=== PATIENT | female | born 1970 | race Caucasian/White ===

== ENCOUNTER 2017-03-05 13:46 | Emergency (ER) | payer BC ==
[~2017-03-05] VITALS: Ht 157.5 cm; Wt 59.0 kg
[2017-03-05] MEDS ORDERED: IOHEXOL 300 MG/ML 75 ML VIAL. IV ONE (14:45)
[2017-03-05 14:51] LABS: BASO % 1 % (0-3); EOS % 0 % (0-3); HEMATOCRIT 38.3 % (36.0-47.0); HEMOGLOBIN 13.3 g/dL (12.0-15.5); LYMPH # 1.5 x10^3/uL (1.0-4.8); LYMPH % 38 % (24-48); MEAN CORPUSCULAR HEMOGLOBIN 38 pg (25-35); MEAN CORPUSCULAR HGB CONC 35 g/dL (31-37); MEAN CORPUSCULAR VOLUME 109 fL (79-100); MONO # 0.2 x10^3/uL (0.0-1.1); MONO % 6 % (0-9); NEUT # 2.2 x10^3uL (1.8-7.7); NEUT % 56 % (31-73); PLATELET COUNT 316 x10^3/uL (140-400); RED BLOOD COUNT 3.53 x10^6/uL (3.50-5.40); RED CELL DISTRIBUTION WIDTH 16.2 % (11.5-14.5); WHITE BLOOD COUNT 3.9 x10^3/uL (4.0-11.0)
[2017-03-05 15:02] LABS: ACETAMIN 17.1 mcg/mL (10-30); SALIC 1.9 mg/dL (2.8-20.0)
[2017-03-05 15:04] LABS: ETHANOL 430 mg/dL (0-10)
--- NOTE | 2017-03-05 15:21 | PHYS DOC ---
Past History Past Medical History: No Pertinent History Past Surgical History: Tonsillectomy Alcohol Use: None Additional Alcohol Information: used alcohol 14 yrs ago Drug Use: None Social History Narrative: used meth 14yrs ago Adult General Chief Complaint Chief Complaint: DIZZY/LIGHT HEADED HPI HPI 46-year-old female presenting to the emergency department today with intermittent slurred speech since Saturday. Today is Saturday. Her mother is here with her and is concerned that she may have taken methamphetamines. Her mother reports she is acting intermittently confused and inappropriate. The patient complains of a headache that is moderate nonradiating intermittent and not sudden in onset and without alleviating factors. She denies neck stiffness confusion unilateral leg swelling hemoptysis. She denies unilateral weakness or numbness or tingling. The patient denies vision changes. Review of systems is negative for chest pain shortness of breath abdominal pain vomiting fevers chills. All other review of systems is negative unless otherwise noted in history of present illness. ED course: 46-year-old female presenting to the emergency department with intermittent confusion and slurred speech since Saturday. Mother initially concern for possible ingestion. Patient denies any ingestions. On examination the patient has a normal temperature. Blood pressure normal. Heart rate mildly elevated. Saturating well on room air and breathing comfortably. On examination the patient is oriented to person place and time. (nursing note states confusion. This is inaccurate. Pt is oriented and not confused in the ED). Patient's last known normal established as Saturday. Patient is outside window for TPA and outside window for mechanical thrombectomy. NIH stroke scale calculated by nursing staff to be 1 for mental status. the pt is alert and keenly responsive. Neuro exam performed see below. I discussed the case with our neurologist [akbar]. Blood work obtained along with a head CT and angiography. Patient's alcohol level came back as very high. Otherwise head CT unremarkable. Patient was then admitted to [facility] for clinical observation and possible MRI with neurologic consultation. Review of Systems Review of Systems SEE ABOVE Current Medications Current Medications Current Medications Medications (Trade) Dose Ordered Sig/Jose Start Time Stop Time Status Last Admin Dose Admin Iohexol (Omnipaque 300 Mg/ml) 75 ml 1X ONCE 03/05/17 14:45 03/05/17 14:46 DC 03/05/17 14:58 75 ML Allergies Allergies Allergies Coded Allergies Type Severity Reaction Last Updated Verified amoxicillin Allergy Intermediate rash 03/05/17 Yes ampicillin Allergy Intermediate rash 03/05/17 Yes clavulanic acid Allergy Intermediate rash 03/05/17 Yes ciprofloxacin Allergy Unknown rash 03/05/17 Yes Physical Exam Physical Exam Constitutional: Well developed, well nourished, no acute distress, non-toxic appearance. [] HENT: Normocephalic, atraumatic, bilateral external ears normal, oropharynx moist, no oral exudates, nose normal. [] Eyes: PERRLA, EOMI, conjunctiva normal, no discharge. [] Neck: Normal range of motion, no tenderness, supple, no stridor. [] Cardiovascular:Heart rate regular rhythm, no murmur [] Lungs & Thorax: Bilateral breath sounds clear to auscultation [] Abdomen: Bowel sounds normal, soft, no tenderness, no masses, no pulsatile masses. [] Skin: Warm, dry, no erythema, no rash. [] Back: No tenderness, no CVA tenderness. [] Extremities: No tenderness, no cyanosis, no clubbing, ROM intact, no edema. [] Neurologic: Mental status: Awake oriented and alert x3 Cranial nerves: Extraocular movements intact, eyebrows michelle bilaterally smile symmetric, uvula elevation, shoulder shrug intact, tongue protrusion normal DTRs: 2+ Sensation: equal and normal in all extremities Strength: 5/5 in upper and lower extremities bilaterally Patient has mild ataxia on [id number] testing bilaterally and has difficulty performing rapid alternating movements. Psychologic: Affect normal, judgement normal, mood normal. [] Current Patient Data Vital Signs Vital Signs Date Time Temp Pulse Resp B/P (MAP) Pulse Ox O2 Delivery O2 Flow Rate FiO2 03/05/17 13:46 97.7 98 20 97 Lab Results Laboratory Tests Test 03/05/17 14:14 03/05/17 14:27 Glucose (Fingerstick) 102 mg/dL (70-99) H White Blood Count 3.9 x10^3/uL (4.0-11.0) L Red Blood Count 3.53 x10^6/uL (3.50-5.40) Hemoglobin 13.3 g/dL (12.0-15.5) Hematocrit 38.3 % (36.0-47.0) Mean Corpuscular Volume 109 fL (79-100) H Mean Corpuscular Hemoglobin 38 pg (25-35) H Mean Corpuscular Hemoglobin Concent 35 g/dL (31-37) Red Cell Distribution Width 16.2 % (11.5-14.5) H Platelet Count 316 x10^3/uL (140-400) Neutrophils (%) (Auto) 56 % (31-73) Lymphocytes (%) (Auto) 38 % (24-48) Monocytes (%) (Auto) 6 % (0-9) Eosinophils (%) (Auto) 0 % (0-3) Basophils (%) (Auto) 1 % (0-3) Neutrophils # (Auto) 2.2 x10^3uL (1.8-7.7) Lymphocytes # (Auto) 1.5 x10^3/uL (1.0-4.8) Monocytes # (Auto) 0.2 x10^3/uL (0.0-1.1) Eosinophils # (Auto) 0.0 x10^3/uL (0.0-0.7) Basophils # (Auto) 0.0 x10^3/uL (0.0-0.2) Troponin I Quantitative < 0.017 ng/mL (0-0.055) Salicylates Level 1.9 mg/dL (2.8-20.0) L Salicylate Last Dose Date Unknown Salicylate Last Dose Time Unknown Acetaminophen Level 17.1 mcg/mL (10-30) Acetaminophen Last Dose Date Unknown Acetaminophen Last Dose Time Unknown Ethyl Alcohol Level 430 mg/dL (0-10) *H EKG EKG [] Radiology/Procedures Radiology/Procedures [] Course & Med Decision Making Course & Med Decision Making Pertinent Labs and Imaging studies reviewed. (See chart for details) [] Dragon Disclaimer Dragon Disclaimer This chart was dictated in whole or in part using Voice Recognition software in a busy, high-work load, and often noisy Emergency Department environment. It may contain unintended and wholly unrecognized errors or omissions. Departure Departure: Impression: Primary Impression: Alcohol intoxication Disposition: 02 XFER SHT-TRM HOSP Condition: STABLE Referrals: PCP,NO (PCP) AB MONTOYA MD Mar 05, 2017 15:21
[2017-03-05] MEDS ORDERED: IV NORMAL SALINE 1,000ML 1,000 ML IV ONE (15:45)
[2017-03-05 15:52] LABS: AMPHETAMINE/METHAMPHETAMINE NEG (NEG); BARBITURATES NEG (NEG); BENZODIAZEPINES NEG (NEG); CANNABINOIDS NEG (NEG); COCAINE NEG (NEG); METHADONE NEG (NEG); OPIATES NEG (NEG); PHENCYCLIDINE NEG (NEG)
[2017-03-05 16:03] LABS: ALBUMIN 2.9 g/dL (3.4-5.0); CALCIUM 7.6 mg/dL (8.5-10.1); CREATININE 0.8 mg/dL (0.6-1.0); DIRECT BILIRUBIN 0.2 mg/dL (0.0-0.2); GFR 77.6; POTASSIUM 4.1 mmol/L (3.5-5.1); TOTAL BILIRUBIN 0.4 mg/dL (0.2-1.0); TOTAL PROTEIN 5.6 g/dL (6.4-8.2)
--- NOTE | 2017-03-05 16:03 | RAD ---
CT of the head without contrast, 03/05/2017: History: Altered mental status The ventricles are within normal limits in size. There is no shift of the midline structures. There is no evidence of acute intracranial hemorrhage or mass effect. IMPRESSION: No acute intracranial abnormality is detected. PQRS Compliance Statement: One or more of the following individualized dose reduction techniques were utilized for this examination: 1. Automated exposure control 2. Adjustment of the mA and/or kV according to patient size 3. Use of iterative reconstruction technique
--- NOTE | 2017-03-05 16:06 | RAD ---
CT head Indication: Intermittent confusion Technique: CT head without IV contrast Comparison: None Findings: Limited study as engineering lab technician bases are included on the scan. No pathologic extra-axial or intra-axial fluid collection. No midline shift. Ventricles and basal cisterns are within normal limits. No acute intracranial bleed. No loss of hawthorne-white differentiation. No calvarial lesions. Visualized mastoid cells are clear. Likely Arachnoid Granulation seen in the right transverse sinus. Impression: No acute intracranial process on this noncontrast study. CT angiogram of the head and neck Indication: As above Technique: CT angiogram of the head and neck with 75 mL of Omnipaque 300 with coronal and sagittal MIP reconstructions. Comparison: None Findings: No abnormally enhancing brain lesion. No pathologic extra-axial or intra-axial fluid collections. No mass occupying lesion. The ventricles and basal cisterns are within normal limits. ANI: Patent bilaterally without evidence of atherosclerotic disease, aneurysm or stenosis. MCA:Patent bilaterally without evidence of atherosclerotic disease, aneurysm or stenosis. LAMINATION MACHINE OPERATOR:Patent bilaterally without evidence of atherosclerotic disease, aneurysm or stenosis. Right posterior communicating artery is not visualized likely hypoplastic. Left posterior communicating artery is patent. Right superior cerebellar is not visualized. Left superior cerebral artery is patent. Diminutive right anterior inferior cerebellar artery noted. Left anterior inferior cerebellar artery not visualized likely hypoplastic. Bilateral posterior-inferior cerebellar arteries are visualized and are patent. Basilar artery is patent without evidence of atherosclerotic disease, stenosis or aneurysm. Bilateral cavernous carotid arteries are patent without evidence of aneurysm, atherosclerotic disease or stenosis. Bilateral vertebral arteries are patent without evidence of atherosclerotic disease, stenosis or aneurysm. Bilateral extracranial internal carotid arteries are patent without evidence of atherosclerotic disease, aneurysm, or stenosis. Bilateral external carotid arteries are patent. Carotid bulbs demonstrate no atherosclerotic disease or stenosis. Bilateral common carotid arteries are patent without evidence of atherosclerotic disease. Bilateral subclavian arteries are patent. Aortic arch is within normal limits. The dural venous sinuses are patent. Arachnoid granulation is seen within right transverse sinus. Jugular veins are patent bilaterally. No cervical adenopathy. The submandibular glands, parotid glands and thyroid are within normal limits. Orbits are within normal limits. The nasopharynx, oropharynx and hypopharynx within normal limits. Visualized lungs are clear. The paranasal sinuses and mastoid air cells are clear. No suspicious bony lesions. Impression: No evidence of atherosclerotic disease, stenosis or aneurysm of the extracranial or intracranial arteries. PQRS Compliance Statement: One or more of the following individualized dose reduction techniques were utilized for this examination: 1. Automated exposure control 2. Adjustment of the mA and/or kV according to patient size 3. Use of iterative reconstruction technique
[2017-03-05 16:27] LABS: BACTERIA,URINE 0 /HPF (0-FEW); BILIRUBIN,URINE NEG (NEG); CLARITY,URINE CLOUDY; COLOR,URINE YELLOW; GLUCOSE,URINE NEG (NEG); NITRITE,URINE NEG (NEG); RBC,URINE OCC /HPF (0-2); SQUAMOUS EPITHELIAL CELL,UR FEW /LPF; UROBILINOGEN,URINE 0.2 mg/dL (0.2 mg/dL)
[2017-03-05 16:31] LABS: PREG TEST PT QUAL NEGATIVE (NEG)
[2017-03-05 17:30] VITALS: BP 147/90
--- NOTE | 2017-03-05 19:01 | EKG ---
[address] [address] Test Date: 2017-03-05 Test Time: 14:04:21 Pat Name: VERNA CHILD Department: Room: Gender: F Weather Reporter: ALLA : 1970 Requested By: AB MONTOYA Order Number: [id number] Reading MD: Measurements Intervals [place] Rate: 93 P: 51 [place]: 130 QRS: 59 QRSD: 80 T: 62 QT: 364 QTc: 455 Interpretive Statements SINUS RHYTHM QRS(T) CONTOUR ABNORMALITY CONSIDER ANTEROSEPTAL MYOCARDIAL DAMAGE POSSIBLY ABNORMAL ECG RI6.01 No previous ECG available for comparison
== END 2017-03-05 18:40 | disposition short-term general hospital (02) ==
LOC: ER 13:46
DX: F10.129 Alcohol abuse with intoxication, unspecified (principal); Z88.1 Allergy status to other antibiotic agents
CPT/HCPCS: 36415; 51702; 70450; 70496; 70498; 80048; 80076; 80307; 81001; 82947; 83690; 83930; 84484; 84702; 84703; 85025; 93005; 96360; 96361; 99285; G0480; Q9967; G0479; J7030

== ENCOUNTER 2017-06-22 13:15 | Emergency (ER) | payer BC ==
[~2017-06-22] VITALS: Ht 157.5 cm; Wt 59.0 kg
[2017-06-22] MEDS ORDERED: MVI, ADULT NO.4 WITH VIT K 10 ML, FOLIC ACID SYRINGE for ER 1 MG, THIAMINE 100 MG in IV... IV SCH ×4 (14:00)
--- NOTE | 2017-06-22 14:05 | EKG ---
[address] [address] Test Date: 2017-06-22 Test Time: 13:51:07 Pat Name: VERNA CHILD Department: Room: Gender: F Hand Assembler: HARSH : 1970 Requested By: JR DE LA ROSA Order Number: [id number] Reading MD: Yeyo Greco MD Measurements Intervals [place] Rate: 86 P: 34 [place]: 122 QRS: -4 QRSD: 84 T: 22 QT: 366 QTc: 441 Interpretive Statements SINUS RHYTHM Electronically Signed On 06-30-2017 23:50:33 CHEMICAL DEPENDENCY NURSE by Yeyo Greco MD
[2017-06-22 14:44] LABS: BASO % 1 % (0-3); EOS % 0 % (0-3); HEMATOCRIT 38.3 % (36.0-47.0); HEMOGLOBIN 12.9 g/dL (12.0-15.5); LYMPH # 2.4 x10^3/uL (1.0-4.8); LYMPH % 46 % (24-48); MEAN CORPUSCULAR HEMOGLOBIN 32 pg (25-35); MEAN CORPUSCULAR HGB CONC 34 g/dL (31-37); MEAN CORPUSCULAR VOLUME 96 fL (79-100); MONO # 0.2 x10^3/uL (0.0-1.1); MONO % 3 % (0-9); NEUT # 2.6 x10^3uL (1.8-7.7); NEUT % 51 % (31-73); PLATELET COUNT 200 x10^3/uL (140-400); RED BLOOD COUNT 3.99 x10^6/uL (3.50-5.40); RED CELL DISTRIBUTION WIDTH 15.8 % (11.5-14.5); WHITE BLOOD COUNT 5.2 x10^3/uL (4.0-11.0)
[2017-06-22 14:55] LABS: ALBUMIN 3.2 g/dL (3.4-5.0); CALCIUM 8.1 mg/dL (8.5-10.1); CREATININE 0.7 mg/dL (0.6-1.0); DIRECT BILIRUBIN 0.1 mg/dL (0.0-0.2); GFR 90.5; MAGNESIUM 1.9 mg/dL (1.8-2.4); POTASSIUM 3.8 mmol/L (3.5-5.1); TOTAL BILIRUBIN 0.4 mg/dL (0.2-1.0); TOTAL PROTEIN 6.3 g/dL (6.4-8.2)
[2017-06-22 14:59] LABS: ACETAMIN < 2.0 mcg/mL (10-30); ETHANOL 297 mg/dL (0-10); SALIC 0.9 mg/dL (2.8-20.0)
[2017-06-22] MEDS ORDERED: IV NORMAL SALINE 1,000ML 1,000 ML IV SCH (15:34)
[2017-06-22 15:59] LABS: BACTERIA,URINE 0 /HPF (0-FEW); BILIRUBIN,URINE NEG (NEG); CLARITY,URINE CLEAR; COLOR,URINE YELLOW; GLUCOSE,URINE NEG (NEG); NITRITE,URINE NEG (NEG); SQUAMOUS EPITHELIAL CELL,UR FEW /LPF; UROBILINOGEN,URINE 0.2 mg/dL (0.2 mg/dL); WBC,URINE OCC /HPF (0-4)
[2017-06-22] MEDS ORDERED: LORazepam 2 MG/ML VIAL IV ONE ×2 (16:00→17:50)
[2017-06-22 16:12] LABS: BARBITURATES NEG (NEG); BENZODIAZEPINES NEG (NEG); CANNABINOIDS NEG (NEG); COCAINE NEG (NEG); METHADONE NEG (NEG); OPIATES NEG (NEG); PHENCYCLIDINE NEG (NEG)
[2017-06-22 16:13] LABS: AMPHETAMINE/METHAMPHETAMINE NEG (NEG)
[2017-06-22 17:30] VITALS: BP 128/75
[2017-06-22] MEDS ORDERED: LORA-434 PO (17:31)
--- NOTE | 2017-06-22 17:37 | PHYS DOC ---
General Chief Complaint: ALCOHOL INTOXICATION Stated Complaint: ETOH/ SUICIDAL IDEATION Time Seen by MD: 13:23 Problems: History of Present Illness Allergies: Coded Allergies: amoxicillin (Verified Allergy, Intermediate, rash, 03/05/17) ampicillin (Verified Allergy, Intermediate, rash, 03/05/17) clavulanic acid (Verified Allergy, Intermediate, rash, 03/05/17) ciprofloxacin (Verified Allergy, Unknown, rash, 03/05/17) Orders, Labs, Meds EKG: Normal sinus rhythm 86 bpm, leftward axis nonspecific T contour abnormality no ST segment elevation. Interpreted by me. 1737: Patient rechecked, she's had a banana bag, 1 mg of Ativan intravenously, and a 1 L normal saline IV bolus. At this point she is no longer slurring. She has a ride home, she hasn't assessment at the [facility] alcohol[facility] scheduled for Saturday. Her is on the way to pick her up and drive her home. She agrees not to drink alcohol and follow through with the [facility] alcohol cessation program. Departure Time of Disposition: 17:34 Disposition: 01 HOME, SELF-CARE Diagnosis: alcohol intoxication, alcoholism Condition: IMPROVED Patient Instructions: Alcohol Intoxication, [id number], Alcohol Withdrawal, [id number] Additional Instructions: Please review the patient education materials given by ED staff. Aggressive hydration to continue to replace fluid deficits. Abstain from alcohol in all forms. Prescription: Ativan 1 mg quantity 10 No driving or operating machinery while under the influence of alcohol or sedative medications. [facility]-up [facility] on Saturday as scheduled for alcoholism assessment and rehabilitation. Return to ED with new or changing symptoms. JR DE LA ROSA DO Jun 22, 2017 17:37
== END 2017-06-22 17:53 | disposition home or self-care (01) ==
LOC: ER 13:15
DX: F10.129 Alcohol abuse with intoxication, unspecified (principal); Z88.1 Allergy status to other antibiotic agents
CPT/HCPCS: 36415; 80048; 80076; 80307; 81001; 82550; 83690; 83735; 84484; 85025; 93005; 96365; 96375; 96376; 99285; G0480; J2060; G0479; J7030

== ENCOUNTER 2017-08-04 05:14 | Emergency (ER) | payer SELFPAY ==
[~2017-08-04] VITALS: Ht 157.5 cm; Wt 59.0 kg
[~2017-08-04 05:14] MED LIST: LORA-434 PO
--- NOTE | 2017-08-04 05:51 | PHYS DOC ---
Past History Past Medical History: Alcoholism Past Surgical History: Tonsillectomy Alcohol Use: Heavy Drug Use: None Adult General Chief Complaint Chief Complaint: altered mental status HPI HPI Patient is a 46 year old F who presents with altered mental status. Verna was brought to the emergency room by her family for progressively worsening abnormal behavior. They describe agitation and flailing for no known reason. She does have a history of alcohol abuse for which she is taking Antabuse currently. She has not used any other known recreational drugs. She states that the only medications she has used are Antabuse and Vistaril for anxiety. Her history is limited due to her current medical condition Review of Systems Review of Systems Unable to obtain due to current medical condition Family History Family History Unable to obtain due to current medical condition Current Medications Current Medications Unable to obtain due to current medical condition Allergies Allergies Allergies Coded Allergies Type Severity Reaction Last Updated Verified amoxicillin Allergy Intermediate rash 03/05/17 Yes ampicillin Allergy Intermediate rash 03/05/17 Yes clavulanic acid Allergy Intermediate rash 03/05/17 Yes ciprofloxacin Allergy Unknown rash 03/05/17 Yes Physical Exam Physical Exam Constitutional: Well developed, well nourished extremely agitated, flailing uncontrollably. HENT: Minimal dried blood in the mouth from apparent abrasion on the left upper lip, dry oral mucous membranes Eyes: EOMI, conjunctiva normal, no discharge. [] Neck: Normal range of motion limited evaluation Cardiovascular:Heart rate regular rhythm, Lungs & Thorax: Bilateral breath sounds clear to auscultation [] Abdomen: Bowel sounds normal, soft, no tenderness, no masses, no pulsatile masses. [] Skin: Warm, dry, no erythema, no rash. [] Multiple areas of ecchymosis on all extremities Back: Limited evaluation Extremities: no cyanosis, no clubbing, ROM intact, no edema. [] Limited evaluation Neurologic: Alert to person place and situation. Moves all extremities equally , limited evaluation Psychologic: Extremely agitated with flailing-like movements. EKG EKG EKG interpreted by me. EKG at 626 showed normal sinus rhythm at rate of 88, poor R-wave progress in anterolateral leads, no acute ST and T-wave elevation[] Radiology/Procedures Radiology/Procedures Critical care time 30 minutes Verna was flailing uncontrollably and at risk for injuring herself. She was given 2 mg of Ativan IM with minimal response. This was followed by 2 mg of Haldol IM also with minimal response initially. IV access was obtained, labs were drawn and she was given a second dose of Haldol 2 mg IV. She did improve thereafter but continued to be agitated with intermittent worsening intensity. She was started on IV fluids. [address] [address] IMAGING REPORT Signed PATIENT: VERNA CHILD ACCOUNT: [id number] : 1970 LOCATION: ER AGE: 46 SEX: F EXAM STATUS: REG ER ORD. PHYSICIAN: REY BEY MD REASON: Altered Mental status PROCEDURE: CT HEAD WO CONTRAST PQRS Compliance Statement: One or more of the following individualized dose reduction techniques were utilized for this examination: 1. Automated exposure control 2. Adjustment of the mA and/or kV according to patient size 3. Use of iterative reconstruction technique CT HEAD WITHOUT CONTRAST History: Altered mental status. Comparison: CT head without contrast 03/05/2017. Procedure: Axial images are obtained of the head from the skull base through the vertex without IV contrast. Findings: The ventricles and sulci are normal for the patient's age. No mass-effect, midline shift, hemorrhage, extra-axial fluid collection, or obvious acute infarction is identified. Basilar cisterns are patent. Bone windows demonstrate no acute calvarial abnormality. The visualized paranasal sinuses are clear. Mastoid air cells are well aerated. IMPRESSION: No acute intracranial abnormality. Electronically signed by: Tom Lozano MD (08/04/2017 6:42 AM) [facility] [place] DICTATED AND SIGNED BY: TOM LOZANO MD DATE: 08/04/17 0640 CC: KARON SALAS MD; PCP,NO; REY BEY MD ~ [address] [address] IMAGING REPORT Signed PATIENT: VERNA CHILD ACCOUNT: [id number] : 1970 LOCATION: ER AGE: 46 SEX: F EXAM STATUS: REG ER ORD. PHYSICIAN: KARON SALAS MD REASON: ALOC PROCEDURE: PORTABLE CHEST 1V Portable AP upright view CXR: Clinical indications: Altered level of consciousness. Comparison: None available. Findings: No acute lung infiltrate or pleural effusion or pulmonary edema or lung mass or pneumothorax is seen. The heart size, pulmonary vasculature, mediastinum and both lauren are unremarkable. Levoscoliosis is seen. Impression: No acute radiographic abnormality is seen. DICTATED AND SIGNED BY: HARISH NEVES MD DATE: 08/04/17 3286 CC: KARON SALAS MD; PCP,NO ~ Course & Med Decision Making Course & Med Decision Making Pertinent Labs and Imaging studies reviewed. (See chart for details) Care was transferred to Dr. Salas at 0600 Patient care transferred to [place] by senior safety management consultant physician at 6 AM. Patient brought in because of agitation and altered level of consciousness. According to family member patient was not acting like her usual for the last 1 week and gradually getting force and asked that she was more agitated and confused and refused to come to the hospital by EMS twice. Patient had stable vital signs and good gag reflex with mild agitation there has Haldol and Ativan IM and IV. Patient had IV line and labs was sent when I started her evaluation. Koduo-yh-tjka blood sugar was requested by me and showed blood sugar of 44 and 1 amp of D50 was given. Also I requested ABG, lactic acid, blood culture, cardiac enzymes, ammonia, chest x-ray, EKG, alcohol level, blood toxicology panel, urine test. Labs showed white count of 32,000 and blood sugar of 28. Repeat blood sugar after amp of D50 was 240 and 168. ABG showed pH of 7.18 with a bicarbonate of 6 and PCO2 of 121 at room air. Two amp of bicarbonate was ordered. Patient had 2 L of normal saline with Rocephin and vancomycin running. Tetanus shot was ordered patient mother states she had one less than [address] Dougherty was informed at 0711 who agreed with transferring the patient to higher level of care. Dr. Wilson on-call hospitalist at [facility] accepted transfer at 0 720. CPK final results is pending but lab staff reports it is very very elevated and needs dilution several times. Dragon Disclaimer Dragon Disclaimer This electronic medical record was generated, in whole or in part, using a voice recognition dictation system. Departure Departure: Impression: Primary Impression: Altered mental status, unspecified Additional Impressions: Sepsis Hypoglycemia Leukocytosis Metabolic acidosis Elevated troponin I level Elevated liver function tests Abnormal bruising Rhabdomyolysis Acute renal insufficiency Hematuria Disposition: XFER [facility] (At 0721) Referrals: PCP,NO (PCP) Critical Care Time Critical care time was [90] minutes exclusive of procedures. Problem Qualifiers REY BEY MD Aug 04, 2017 05:51 KARON SALAS MD Aug 04, 2017 06:15
[2017-08-04] MEDS ORDERED: LORazepam 2 MG/ML VIAL IM ONE (06:00)
[2017-08-04] MEDS ORDERED: HALOPERIDOL LACT 5 MG/ML VIAL. IM ONE (06:00)
[2017-08-04] MEDS ORDERED: HALOPERIDOL LACT 5 MG/ML VIAL. IVP ONE (06:00)
[2017-08-04] MEDS ORDERED: IV NORMAL SALINE 1,000ML 1,000 ML IV ONE ×2 (06:00→07:00)
[2017-08-04 06:07] LABS: BASO # 0.1 x10^3/uL (0.0-0.2); BASO % 0 % (0-3); EOS % 0 % (0-3); HEMATOCRIT 38.5 % (36.0-47.0); LYMPH # 0.9 x10^3/uL (1.0-4.8); LYMPH % 3 % (24-48); MEAN CORPUSCULAR HEMOGLOBIN 31 pg (25-35); MEAN CORPUSCULAR HGB CONC 34 g/dL (31-37); MEAN CORPUSCULAR VOLUME 92 fL (79-100); MONO # 1.6 x10^3/uL (0.0-1.1); MONO % 5 % (0-9); NEUT # 29.7 x10^3uL (1.8-7.7); NEUT % 92 % (31-73); PLATELET COUNT 420 x10^3/uL (140-400); RED BLOOD COUNT 4.18 x10^6/uL (3.50-5.40); RED CELL DISTRIBUTION WIDTH 15.4 % (11.5-14.5); WHITE BLOOD COUNT 32.3 x10^3/uL (4.0-11.0)
[2017-08-04 06:07] LABS: BARBITURATES NEG (NEG); BENZODIAZEPINES NEG (NEG); CANNABINOIDS NEG (NEG); COCAINE NEG (NEG); METHADONE NEG (NEG); OPIATES NEG (NEG); PHENCYCLIDINE NEG (NEG)
[2017-08-04] MEDS ORDERED: DEXTROSE 50% 25 GM / 50ML DISP.SYRIN. IV ONE ×2 (06:09→06:15)
[2017-08-04 06:12] LABS: AMPHETAMINE/METHAMPHETAMINE NEG (NEG)
[2017-08-04 06:22] LABS: ALBUMIN 3.6 g/dL (3.4-5.0); CALCIUM 8.7 mg/dL (8.5-10.1); CREATININE 1.6 mg/dL (0.6-1.0); GFR 34.9; MAGNESIUM 2.4 mg/dL (1.8-2.4); POTASSIUM 4.7 mmol/L (3.5-5.1); TOTAL BILIRUBIN 0.8 mg/dL (0.2-1.0); TOTAL PROTEIN 7.2 g/dL (6.4-8.2)
[2017-08-04 06:33] LABS: U PREG PATIENT NEGATIVE (NEG)
[2017-08-04 06:37] LABS: BACTERIA,URINE FEW /HPF (0-FEW); BILIRUBIN,URINE NEG (NEG); CLARITY,URINE HAZY; COLOR,URINE AMBER; GLUCOSE,URINE NEG (NEG); NITRITE,URINE NEG (NEG); RBC,URINE >40 /HPF (0-2); SQUAMOUS EPITHELIAL CELL,UR OCC /LPF; UROBILINOGEN,URINE 1 mg/dL (0.2 mg/dL); WBC,URINE RARE /HPF (0-4)
[2017-08-04 06:45] LABS: ACETAMIN < 2 mcg/mL (10-30); SALIC 7.1 mg/dL (2.8-20.0)
[2017-08-04] MEDS ORDERED: VANCOMYCIN 1 GM in IV NORMAL SALINE 250ML 250 ML IV ONE (06:45)
[2017-08-04] MEDS ORDERED: VANCOMYCIN PER PHARMACY MC PRN (06:45)
--- NOTE | 2017-08-04 06:45 | RAD ---
RS Compliance Statement: One or more of the following individualized dose reduction techniques were utilized for this examination: 1. Automated exposure control 2. Adjustment of the mA and/or kV according to patient size 3. Use of iterative reconstruction technique CT HEAD WITHOUT CONTRAST History: Altered mental status. Comparison: CT head without contrast 03/05/2017. Procedure: Axial images are obtained of the head from the skull base through the vertex without IV contrast. Findings: The ventricles and sulci are normal for the patient's age. No mass-effect, midline shift, hemorrhage, extra-axial fluid collection, or obvious acute infarction is identified. Basilar cisterns are patent. Bone windows demonstrate no acute calvarial abnormality. The visualized paranasal sinuses are clear. Mastoid air cells are well aerated. IMPRESSION: No acute intracranial abnormality. Electronically signed by: Tom Lozano MD (08/04/2017 6:42 AM) [facility]
[2017-08-04 06:56] LABS: BGAS PH 7.18 (7.35-7.45)
[2017-08-04] MEDS ORDERED: VANCOMYCIN 1.5 GM in IV NORMAL SALINE 500ML 500 ML IV ONE (07:00)
[2017-08-04] MEDS ORDERED: cefTRIAXone IV Push 1 GM VIAL. IVP ONE (07:00)
[2017-08-04] MEDS ORDERED: SODIUM BICARB ADULT 8.4% 50 MEQ/50 ML DISP.SYRIN. IV ONE (07:15)
[2017-08-04] MEDS ORDERED: TETANUS AND DIPHTHERIA TOX/PF 0.5 ML VIAL. VAX IM ONE (07:15)
[2017-08-04 07:21] LABS: % BANDS 5 % (0-9); % LYMPHS 2 % (24-48); % MONOS 7 % (0-10); % SEGS 86 % (35-66)
[2017-08-04 07:22] LABS: PLT ESTIMATE INCREASED (ADEQUATE)
[2017-08-04] MEDS ORDERED: VANCOMYCIN 1 GM VIAL. ONE (07:43)
[2017-08-04] MEDS ORDERED: IV NORMAL SALINE 500ML 500 ML ONE (07:43)
[2017-08-04] MEDS ORDERED: DIPHTH,PERTUSS(ACELL),TET TOX 0.5 ML DISP.SYRIN. VAX IM ONE (07:45)
--- NOTE | 2017-08-04 07:48 | RAD ---
Portable AP upright view CXR: Clinical indications: Altered level of consciousness. Comparison: None available. Findings: No acute lung infiltrate or pleural effusion or pulmonary edema or lung mass or pneumothorax is seen. The heart size, pulmonary vasculature, mediastinum and both lauren are unremarkable. Levoscoliosis is seen. Impression: No acute radiographic abnormality is seen.
[2017-08-04 08:30] VITALS: BP 108/74
[2017-08-04] MEDS ORDERED: LORazepam 2 MG/ML VIAL IV ONE (09:00)
--- NOTE | 2017-08-05 12:13 | EKG ---
[address] [address] Test Date: 2017-08-04 Test Time: 06:25:17 Pat Name: VERNA CHILD Department: Room: Gender: F Quality Systems Engineer: AYAH : 1970 Requested By: KARON SALAS Order Number: [id number] Reading MD: Measurements Intervals [place] Rate: 88 P: 64 RI: 136 QRS: 25 QRSD: 96 T: 55 QT: 374 QTc: 456 Interpretive Statements SINUS RHYTHM QRS(T) CONTOUR ABNORMALITY CONSIDER ANTEROSEPTAL MYOCARDIAL DAMAGE POSSIBLY ABNORMAL ECG RI6.01 Compared to ECG 06/22/2017 13:51:07 No significant changes
== END 2017-08-04 08:30 | disposition short-term general hospital (02) ==
LOC: ER 05:14
DX: A41.9 Sepsis, unspecified organism (principal); R41.82 Altered mental status, unspecified; E87.2 Acidosis; E16.2 Hypoglycemia, unspecified; D72.829 Elevated white blood cell count, unspecified; R79.89 Other specified abnormal findings of blood chemistry; R74.8 Abnormal levels of other serum enzymes; F10.20 Alcohol dependence, uncomplicated; M62.82 Rhabdomyolysis; N28.9 Disorder of kidney and ureter, unspecified; S60.222A Contusion of left hand, initial encounter; S60.221A Contusion of right hand, initial encounter; S80.12XA Contusion of left lower leg, initial encounter; S80.11XA Contusion of right lower leg, initial encounter; Z88.1 Allergy status to other antibiotic agents; X58.XXXA Exposure to other specified factors, initial encounter; Y99.8 Other external cause status; Y93.89 Activity, other specified; Y92.89 Other specified places as the place of occurrence of the external cause
CPT/HCPCS: 36415; 36600; 51702; 70450; 71045; 80053; 80307; 81001; 81025; 82140; 82550; 82553; 82803; 82947; 83605; 83690; 83735; 84484; 85007; 85025; 85610; 85730; 87040; 93005; 96361; 96365; 96372; 96375; 99291; 99292; G0480; J0696; J1630; J2060; J3370; J7040; G0479; J7030

== ENCOUNTER 2017-09-16 17:27 | Observation (INO) | payer OTHER ==
[~2017-09-16] VITALS: Ht 158.8 cm; Wt 61.9 kg
[2017-09-16] MEDS ORDERED: IV NORMAL SALINE 1,000ML 1,000 ML IV SCH ×2 (17:38→23:30)
[2017-09-16] MEDS ORDERED: ALPRAZolam 0.25 MG TABLET PO ONE (17:45)
--- NOTE | 2017-09-16 17:52 | EKG ---
[address] [address] Test Date: 2017-09-16 Test Time: 17:48:08 Pat Name: VERNA CHILD Department: Room: Gender: F Wet Mix Operator: : 1970 Requested By: MARVEL VELA Order Number: [id number] Reading MD: Yeyo Greco MD Measurements Intervals [place] Rate: 95 P: 31 MD: 128 QRS: 11 QRSD: 84 T: 64 QT: 338 QTc: 428 Interpretive Statements SINUS RHYTHM Electronically Signed On 09-23-2017 12:13:43 CDT by Yeyo Greco MD
[2017-09-16 18:05] LABS: BASO % 0 % (0-3); EOS # 0.1 x10^3/uL (0.0-0.7); EOS % 1 % (0-3); HEMATOCRIT 40.4 % (36.0-47.0); HEMOGLOBIN 13.7 g/dL (12.0-15.5); LYMPH % 31 % (24-48); MEAN CORPUSCULAR HEMOGLOBIN 30 pg (25-35); MEAN CORPUSCULAR HGB CONC 34 g/dL (31-37); MEAN CORPUSCULAR VOLUME 88 fL (79-100); MONO # 0.8 x10^3/uL (0.0-1.1); MONO % 9 % (0-9); NEUT # 5.6 x10^3uL (1.8-7.7); NEUT % 59 % (31-73); PLATELET COUNT 338 x10^3/uL (140-400); RED BLOOD COUNT 4.58 x10^6/uL (3.50-5.40); RED CELL DISTRIBUTION WIDTH 14.6 % (11.5-14.5); WHITE BLOOD COUNT 9.5 x10^3/uL (4.0-11.0)
[2017-09-16 18:15] LABS: CALCIUM 9.2 mg/dL (8.5-10.1); CREATININE 1.2 mg/dL (0.6-1.0); GFR 48.6; POTASSIUM 3.7 mmol/L (3.5-5.1)
[2017-09-16] MEDS ORDERED: THIAMINE 100 MG in IV NORMAL SALINE 50ML 50 ML IV STA (18:28)
[2017-09-16] MEDS ORDERED: IV NORMAL SALINE 1,000ML 1,000 ML IV ONE (18:30)
[2017-09-16] MEDS ORDERED: LORazepam 2 MG/ML VIAL IV ONE (18:45)
[2017-09-16] MEDS ORDERED: THIAMINE 200 MG/2 ML VIAL. IV ONE ×2 (18:47→23:12)
[2017-09-16] MEDS ORDERED: IV NORMAL SALINE 50ML 50 ML ONE ×2 (18:47→23:11)
[2017-09-16 19:34] LABS: BARBITURATES NEG (NEG); BENZODIAZEPINES NEG (NEG); CANNABINOIDS NEG (NEG); COCAINE NEG (NEG); METHADONE NEG (NEG); OPIATES NEG (NEG); PHENCYCLIDINE NEG (NEG)
[2017-09-16 19:35] LABS: AMPHETAMINE/METHAMPHETAMINE NEG (NEG)
[2017-09-16 19:51] LABS: ACETAMIN 6.3 mcg/mL (10-30); SALIC 1.6 mg/dL (2.8-20.0)
--- NOTE | 2017-09-16 20:29 | RAD ---
Exam performed: CT scan of the head without contrast. Date of Service: 06/18/13. Comparison: CT head without contrast from 08/04/2017. Clinical History: Altered mental status, difficulty holding still, patient is uncooperative. Technique: Helical acquisitions are obtained from the foramen magnum to the vertex without intravenous administration of contrast. Findings: The ventricles are midline without evidence of dilatation. Normal hawthorne-white differentiation is maintained. There is no extra axial fluid collection, intraparenchymal hemorrhage or mass lesion. The visualized portions of the orbits, paranasal sinuses and the mastoid air cells appear clear. The calvarium is intact. Impression: 1. No acute intracranial process detected. PQRS Compliance Statement: One or more of the following individualized dose reduction techniques were utilized for this examination: 1. Automated exposure control 2. Adjustment of the mA and/or kV according to patient size 3. Use of iterative reconstruction technique Electronically signed by: Nieves Palumbo MD (09/16/2017 8:26 PM) [facility]
[2017-09-16] MEDS ORDERED: diphenhydrAMINE 50 MG/ML VIAL IVP ONE (21:45)
[2017-09-16] MEDS ORDERED: NORMAL SALINE IV ONE (23:00)
[2017-09-16] MEDS ORDERED: THIAMINE IV ONE (23:00)
--- NOTE | 2017-09-16 23:14 | PHYS DOC ---
Past History Past Medical History: Alcoholism Past Surgical History: Tonsillectomy, Other Alcohol Use: Heavy Drug Use: None Adult General Chief Complaint Chief Complaint: ALLERGIC REACTION HPI HPI 46-year-old female with a history of alcoholism on Antabuse for months now brought in by family for evaluation of ataxia. Patient family reports that within the last several months patient was admitted for similar symptoms. She was found to have rhabdomyolysis with a CK around 80,000. Patient was admitted and treated. They're concerned that she may have rhabdomyolysis again. She has no shaking at rest but family and patient described that she is a little bit shaky when she moves and does things and when she walks. Patient denies any drug abuse. No seizure activity no recent alcohol or drugs Review of Systems Review of Systems Constitutional: Denies fever or chills [] Eyes: Denies change in visual acuity, redness, or eye pain [] HENT: Denies nasal congestion or sore throat [] Respiratory: Denies cough or shortness of breath [] Cardiovascular: No additional information not addressed in HPI [] GI: Denies abdominal pain, nausea, vomiting, bloody stools or diarrhea [] : Denies dysuria or hematuria [] Musculoskeletal: Denies back pain or joint pain [] Integument: Denies rash or skin lesions [] Neurologic: Denies headache, focal weakness or sensory changes [] Endocrine: Denies polyuria or polydipsia [] All other systems were reviewed and found to be within normal limits, except as documented in this note. Current Medications Current Medications Current Medications Medications (Trade) Dose Ordered Sig/Jose Start Time Stop Time Status Last Admin Dose Admin Alprazolam (Xanax) 1 mg 1X ONCE 09/16/17 17:45 09/16/17 17:46 DC 09/16/17 17:51 1 MG Diphenhydramine HCl (Benadryl) 25 mg 1X ONCE 09/16/17 21:45 09/16/17 21:46 DC 09/16/17 21:40 25 MG Lorazepam (Ativan) 1 mg 1X ONCE 09/16/17 18:45 09/16/17 18:46 DC 09/16/17 18:35 1 MG Sodium Chloride 50 ml @ As Directed STK-MED ONCE 09/16/17 18:47 09/16/17 18:48 DC Thiamine HCl 200 mg STK-MED ONCE 09/16/17 18:47 09/16/17 18:48 DC Thiamine HCl 100 mg/Sodium Chloride 51 ml @ 999 mls/hr 1X STAT 09/16/17 18:28 09/16/17 18:33 DC 09/16/17 17:50 999 MLS/HR Thiamine HCl 400 mg/Sodium Chloride 54 ml @ 200 mls/hr 1X ONCE 09/16/17 23:00 09/16/17 23:16 Allergies Allergies Allergies Coded Allergies Type Severity Reaction Last Updated Verified amoxicillin Allergy Intermediate rash 08/04/17 Yes ampicillin Allergy Intermediate rash 08/04/17 Yes ciprofloxacin Allergy Intermediate rash 08/04/17 Yes clavulanic acid Allergy Intermediate rash 08/04/17 Yes Physical Exam Physical Exam Constitutional: Patient very restless appearing. She will intermittent leg rest quietly and then be writhing and then resting quietly again. Patient does have some ataxia with finger to nose and with her gait. No acute distress, non-toxic appearance. [] HENT: Normocephalic, atraumatic, bilateral external ears normal, oropharynx moist, no oral exudates, nose normal. [] Eyes: PERRLA, EOMI, conjunctiva normal, no discharge. [] Neck: Normal range of motion, no tenderness, supple, no stridor. [] Cardiovascular:Heart rate regular rhythm, no murmur [] Lungs & Thorax: Bilateral breath sounds clear to auscultation [] Abdomen: Bowel sounds normal, soft, no tenderness, no masses, no pulsatile masses. [] Skin: Warm, dry, no erythema, no rash. [] Back: No tenderness, no CVA tenderness. [] Extremities: No tenderness, no cyanosis, no clubbing, ROM intact, no edema. [] Neurologic: Alert and oriented X 3, ataxia as above, normal sensory function, no focal deficits noted. [] Psychologic: Flat affect, judgement normal Current Patient Data Vital Signs Vital Signs Date Time Temp Pulse Resp B/P (MAP) Pulse Ox O2 Delivery O2 Flow Rate FiO2 09/16/17 19:27 78 14 120/76 (91) 95 Room Air 09/16/17 18:07 97.0 Lab Results Laboratory Tests Test 09/16/17 17:45 09/16/17 18:56 White Blood Count 9.5 x10^3/uL (4.0-11.0) Red Blood Count 4.58 x10^6/uL (3.50-5.40) Hemoglobin 13.7 g/dL (12.0-15.5) Hematocrit 40.4 % (36.0-47.0) Mean Corpuscular Volume 88 fL (79-100) Mean Corpuscular Hemoglobin 30 pg (25-35) Mean Corpuscular Hemoglobin Concent 34 g/dL (31-37) Red Cell Distribution Width 14.6 % (11.5-14.5) H Platelet Count 338 x10^3/uL (140-400) Neutrophils (%) (Auto) 59 % (31-73) Lymphocytes (%) (Auto) 31 % (24-48) Monocytes (%) (Auto) 9 % (0-9) Eosinophils (%) (Auto) 1 % (0-3) Basophils (%) (Auto) 0 % (0-3) Neutrophils # (Auto) 5.6 x10^3uL (1.8-7.7) Lymphocytes # (Auto) 3.0 x10^3/uL (1.0-4.8) Monocytes # (Auto) 0.8 x10^3/uL (0.0-1.1) Eosinophils # (Auto) 0.1 x10^3/uL (0.0-0.7) Basophils # (Auto) 0.0 x10^3/uL (0.0-0.2) Sodium Level 137 mmol/L (136-145) Potassium Level 3.7 mmol/L (3.5-5.1) Chloride Level 100 mmol/L (98-107) Carbon Dioxide Level 27 mmol/L (21-32) Anion Gap 10 (6-14) Blood Urea Nitrogen 17 mg/dL (7-20) Creatinine 1.2 mg/dL (0.6-1.0) H Estimated GFR (Cockcroft-Gault) 48.6 Glucose Level 97 mg/dL (70-99) Calcium Level 9.2 mg/dL (8.5-10.1) Creatine Kinase 386 U/L (26-192) H Troponin I Quantitative < 0.017 ng/mL (0-0.055) Salicylates Level 1.6 mg/dL (2.8-20.0) L Salicylate Last Dose Date 09/15/17 Salicylate Last Dose Time Unknown Acetaminophen Level 6.3 mcg/mL (10-30) L Acetaminophen Last Dose Date 09/15/17 Acetaminophen Last Dose Time Unknown Urine Opiates Screen Neg (NEG) Urine Methadone Screen Neg (NEG) Urine Barbiturates Neg (NEG) Urine Phencyclidine Screen Neg (NEG) Urine Amphetamine/Methamphetamine Neg (NEG) Urine Benzodiazepines Screen Neg (NEG) Urine Cocaine Screen Neg (NEG) Urine Cannabinoids Screen Neg (NEG) Urine Ethyl Alcohol Neg (NEG) EKG EKG [] Radiology/Procedures Radiology/Procedures [] Course & Med Decision Making Course & Med Decision Making Pertinent Labs and Imaging studies reviewed. (See chart for details) Patient with history of alcoholism. While she is alert and communicative she does have ataxia with upper limb movements as well as with her gait. Workup unremarkable the patient persists with these symptoms. She is on Zoloft and dystonic reaction was considered however patient did not have significant improvement with Benadryl administration. Because of the inability to definitively rule out an atypical presentation for Wernick his encephalopathy, appropriate dose of thiamine was administered and case discussed with the hospitalist regarding admission. Hospitalist accepted the patient for inpatient admission for full workup. Patient's ataxia. Improved after administration of thiamine but it is not entirely clear whether this represented actual symptomatic resolution versus subjective/variable presentation of her intermittent symptoms. Patient stable for admission [] Dragon Disclaimer Dragon Disclaimer This electronic medical record was generated, in whole or in part, using a voice recognition dictation system. Departure Departure: Impression: Primary Impression: Ataxia Additional Impression: Gait abnormality Disposition: ADMITTED INPATIENT Admitting Physician: Terese Baer Condition: STABLE Referrals: PCP,NO (PCP) Scripts Hydrocodone Bit/Acetaminophen (HYDROCODONE-APAP 5-325 ) 1 Each Tablet 1 TAB PO PRN Q6HRS Y for PAIN for 7 Days, #28 TAB 0 Refills Prov: TERESE BAER MD 09/19/17 Clonazepam (CLONAZEPAM) 0.5 Mg Tablet 1 TAB PO BID for 7 Days, #14 TAB Prov: TERESE BAER MD 09/19/17 Problem Qualifiers MARVEL VELA MD Sep 16, 2017 23:14
[2017-09-16] MEDS ORDERED: ONDANSETRON PF 4 MG/2 ML VIAL. IV PRN (23:15)
[2017-09-17 00:20] VITALS: BP 131/94
[2017-09-17] MEDS: IV NORMAL SALINE 1,000ML 1,000 ML IV SCH ×3 (00:20→16:20)
[2017-09-17] MEDS ORDERED: ONDANSETRON ODT 4 MG TAB.RAPDIS PO PRN (01:30)
[2017-09-17] MEDS ORDERED: IV NORMAL SALINE 1,000ML 1,000 ML IV SCH (01:30)
[2017-09-17] MEDS ORDERED: DISU250T PO (02:50)
[2017-09-17] MEDS ORDERED: NYST1000 PO (02:50)
[2017-09-17] MEDS ORDERED: TRAZ-90 PO (02:50)
[2017-09-17] MEDS ORDERED: ALPR0.254 PO (02:50)
[2017-09-17] MEDS ORDERED: SERT50TA8 PO (02:50)
[2017-09-17] MEDS ORDERED: LORazepam 2 MG/ML VIAL IV ONE (03:00)
[2017-09-17 06:10] LABS: HEMATOCRIT 37.4 % (36.0-47.0); HEMOGLOBIN 12.5 g/dL (12.0-15.5); RED BLOOD COUNT 4.21 x10^6/uL (3.50-5.40); RED CELL DISTRIBUTION WIDTH 14.9 % (11.5-14.5); WHITE BLOOD COUNT 8.4 x10^3/uL (4.0-11.0)
[2017-09-17 06:27] LABS: ALBUMIN 3.1 g/dL (3.4-5.0); ALBUMIN/GLOBULIN RATIO 1.1 (1.0-1.7); CALCIUM 8.6 mg/dL (8.5-10.1); CREATININE 0.9 mg/dL (0.6-1.0); GFR 67.7; POTASSIUM 3.8 mmol/L (3.5-5.1); TOTAL BILIRUBIN 0.3 mg/dL (0.2-1.0); TOTAL PROTEIN 5.8 g/dL (6.4-8.2)
[2017-09-17 06:35] VITALS: BP 144/94
[2017-09-17] MEDS ORDERED: SERTRALINE 50 MG TABLET. PO SCH (09:00)
[2017-09-17] MEDS: ALPRAZolam 0.25 MG TABLET PO PRN ×2 (09:10→17:42)
[2017-09-17 11:13] VITALS: BP 119/78
[2017-09-17] MEDS ORDERED: ACETAMINOPHEN 650 MG/20.3 ML SOLUTION. PO PRN (15:30)
[2017-09-17 15:58] VITALS: BP 119/59
--- NOTE | 2017-09-17 17:44 | HP ---
ADMIT DATE: 09/16/2017 HISTORY OF PRESENT ILLNESS: The patient is a 46-year-old female patient who came to the Emergency Room yesterday with a complaint of ataxia and flailing movement, and was evaluated in the Emergency Room according to the patient and her mother. This is how the way she presented on 08/04/2017 last time and at that time, she was found to have rhabdomyolysis. Her CK at that time was almost 85,000 and she was taken to the ICU of [facility] where she was treated with IV fluid and urine alkalinization to advance the acute renal failure. PAST MEDICAL HISTORY: Significant for depression and anxiety. She has a history of alcoholism for which she was admitted to [facility] in [place] and at that time, she was started on Antabuse medication and since then, she has not. Her last drink was on 06/24/2017 according to her. She has no other medical problem except an episode of rhabdomyolysis, the beginning of this month. PAST SURGICAL HISTORY: Significant for tonsillectomy, skin cancer resection from her right forehead and at the time, she went into septic shock. She has also . ALLERGIES: She is allergic to ampicillin. MEDICATIONS: She is currently on Zoloft, trazodone, Antabuse in the form of disulfiram and Claritin-D. FAMILY HISTORY: She has 1 older sister that is healthy. Her father at age 66 because of esophageal cancer and has heart disease. Mother is alive and has ulcerative colitis. SOCIAL HISTORY: She is single. She has 14 years old son. She does not smoke. She stopped drinking on 06/25/2017. She used to drink vodka. REVIEW OF SYSTEMS: The patient denied any blurring of vision, cataract, glaucoma or macular degeneration. Denied any earache, tinnitus or sensorineural deafness. Denied any nosebleeds, stuffy nose or postnasal drip. Denied any sore throat, sore tongue, toothache, hoarseness of voice or difficulty swallowing. Denied any nausea, vomiting, diarrhea or constipation. Denied any hematemesis, melena or hematochezia. Denied any dysuria, frequency or hematuria. Denied any chest pain, shortness of breath, orthopnea, or paroxysmal nocturnal dyspnea. Denied any cough, phlegm or hemoptysis. PHYSICAL EXAMINATION: GENERAL: On arrival to the Emergency Room, she looked pale, but no jaundice, cyanosis or thyromegaly. No jugular venous distension. No lower limb edema. VITAL SIGNS: Her heart rate was 98, blood pressure was 138/80, temperature was 98.4, respiratory rate was 20, and oxygen saturation was 95%. HEART: Showed normal first and second heart sounds with no gallop, rub or murmur. CHEST: Clear to auscultation. No crepitation or rhonchi. ABDOMEN: Distended, soft, nontender. No guarding or rigidity. No organomegaly. Hernial orifice intact. Bowel sounds normal. NEUROLOGIC: She was awake, alert, oriented x 3. She has some abnormal flailing movement. LABORATORY AND DIAGNOSTIC DATA: While in the Emergency Room, she has had lab work done, which showed that her white cell count was 9500, hemoglobin was 14, hematocrit 40, MCV 88 and platelet count of 338,000. Her chemistry showed a serum sodium of 137, potassium 3.7, chloride 100, bicarbonate 27, anion gap of 10, BUN 17, creatinine 1.2, estimated GFR was 48 mL per minute, glucose 97, calcium was 9.2. Her CK was 386,000. Her total protein was 5.8, albumin 3.1. Her urinalysis was unremarkable. Her toxic screen showed that the urine was negative for opiates, methadone, barbiturates, phencyclidine, amphetamine, methamphetamine, benzodiazepine, cocaine, cannabinoids and alcohol. ASSESSMENT: She was admitted and started on IV fluid. We will monitor her lab work, as she presented this way last time when she has severe rhabdomyolysis and given her abnormal movement, we will consult Dr. Coles to assist with the management. MUNA BAER MD DR: DOREEN/maryellen JOB#: [id number] / [id number]
[2017-09-17 19:25] VITALS: BP 120/78
[2017-09-17] MEDS: MELATONIN 3 MG TABLET PO PRN ×2 (20:51→21:32)
[2017-09-17] MEDS ORDERED: traZODone 100 MG TABLET. PO SCH (21:00)
[2017-09-17] MEDS: DISULFIRAM 250 MG PO SCH (21:00)
[2017-09-17] MEDS: traMADol 50 MG TABLET PO PRN (21:32)
--- NOTE | 2017-09-18 00:08 | PN ---
DATE: 09/17/2017 SUBJECTIVE: The patient was admitted yesterday with abnormal movement and ataxia. She complained of aches and pains also. She continued to have this abnormal movement in her arms, legs, and also her torso, and also her face and the only explanation that I could come up with that she has some form of serotonin syndrome. PHYSICAL EXAMINATION: GENERAL: When I examined her this afternoon, she was pale, no jaundice, cyanosis, or thyromegaly. No jugular venous distension. No limb edema. VITAL SIGNS: Her heart rate was 97, blood pressure was 119/78, temperature was 98.6, respiratory rate 22, and oxygen saturation was 97%. HEAD, EYES, EARS, NOSE AND THROAT: Normocephalic, atraumatic. NECK: Supple. HEART: Showed normal first and second heart sounds with no gallop, rub or murmur. CHEST: Clear to auscultation. No crepitation or rhonchi. ABDOMEN: Distended, soft, and nontender. No guarding or rigidity. No organomegaly. Hernial orifices intact. Bowel sounds normal. NEUROLOGIC: She is awake, alert. She is restless and fidgety, has abnormal movement on her face, upper limbs and torso. This is some kind of myoclonic jerk or chorea. Her intake over the last 24 hours was almost 2200, no output was recorded. LABORATORY DATA: Her lab work this morning showed a white cell count of 8400, hemoglobin 12.5, hematocrit of 37.4, MCV 89, and platelet count of 236,000. Her chemistry showed a serum sodium 139, potassium 3.8, chloride 108, and bicarbonate 23. Her anion gap of 8, BUN 14, creatinine 0.9, estimated GFR was 68 mL per minute. His glucose was 82, calcium was 8.6. Total bilirubin, AST, ALT, alkaline phosphatase were normal. Her CK was at 350. Total protein was 5.8, albumin 3.1. ASSESSMENT: In summary, this is a 46-year-old female patient, who came with an abnormal involuntary movement consistent with some form of chorea or myoclonic jerks. The nearest description that I come up with there is probably some form of serotonin syndrome as she is already on trazodone and Zoloft. PLAN: My plan is to consult Dr. Coles to see her and also hold her trazodone and Zoloft. I will continue with the Xanax and Tylenol for pain. Repeat her lab work tomorrow and if the CK remains normal, she can be discharged home. MUNA BAER MD DR: DOREEN/maryellen JOB#: [id number] / [id number]
[2017-09-18 00:10] VITALS: BP 130/80
[2017-09-18] MEDS: ALPRAZolam 0.25 MG TABLET PO PRN ×2 (00:34→08:08)
[2017-09-18] MEDS: IV NORMAL SALINE 1,000ML 1,000 ML IV SCH ×3 (00:35→17:10)
[2017-09-18] MEDS: traMADol 50 MG TABLET PO PRN (05:02)
[2017-09-18 05:07] VITALS: BP 123/76
[2017-09-18 06:44] LABS: HEMATOCRIT 36.5 % (36.0-47.0); HEMOGLOBIN 12.2 g/dL (12.0-15.5); RED BLOOD COUNT 4.15 x10^6/uL (3.50-5.40); RED CELL DISTRIBUTION WIDTH 14.6 % (11.5-14.5); WHITE BLOOD COUNT 8.7 x10^3/uL (4.0-11.0)
[2017-09-18 06:55] LABS: ALBUMIN 3.5 g/dL (3.4-5.0); ALBUMIN/GLOBULIN RATIO 1.2 (1.0-1.7); CALCIUM 8.9 mg/dL (8.5-10.1); CREATININE 0.9 mg/dL (0.6-1.0); GFR 67.7; POTASSIUM 3.7 mmol/L (3.5-5.1); TOTAL BILIRUBIN 0.3 mg/dL (0.2-1.0); TOTAL PROTEIN 6.5 g/dL (6.4-8.2)
[2017-09-18 10:50] VITALS: BP 127/70
[2017-09-18 14:44] VITALS: BP 134/76
[2017-09-18] MEDS ORDERED: ALPRAZolam 0.25 MG TABLET PO PRN ×2 (17:00→17:15)
[2017-09-18] MEDS: HYDROcodone/APAP 5/325MG 1 TAB TABLET PO PRN ×2 (17:07→23:50)
--- NOTE | 2017-09-18 18:22 | PDOC ---
Exam Note: Siva Note: Please also refer to the separate dictated note~for this date of service dictated separately.~Patient seen individually. Discussed the patient with Nursing staff reviewed the chart.~Reviewed interim history and current functioning. Reviewed vital signs,~Labs/ Radiology~and current medications noted below. Continue current treatment with the changes noted in the dictated addendum note Late entry for September Assessment: Vital Signs: VS - Last 72 Hours, by Label Date Time Temp Pulse Resp B/P (MAP) Pulse Ox O2 Delivery O2 Flow Rate FiO2 09/18/17 17:07 98 Room Air 09/18/17 14:44 98.3 93 18 134/76 (95) 98 Room Air 09/18/17 10:50 98.1 90 20 127/70 (89) 98 Room Air 09/18/17 08:15 Room Air 09/18/17 06:06 18 97 Room Air 09/18/17 05:07 98.4 89 20 123/76 (92) 97 Room Air 09/18/17 05:02 18 95 Room Air 09/18/17 00:10 98.6 100 18 130/80 (97) 95 Room Air 09/17/17 21:32 18 98 Room Air 09/17/17 20:00 Room Air 09/17/17 19:25 98.1 101 18 120/78 (92) 98 Room Air 09/17/17 15:58 98.5 95 20 119/59 (79) 99 Room Air 09/17/17 11:13 98.6 97 22 119/78 (92) 97 Room Air 09/17/17 08:00 Room Air 09/17/17 06:35 98.5 83 20 144/94 (111) 99 Room Air 09/17/17 00:20 97.6 107 16 131/94 (106) 100 Room Air 09/17/17 00:20 Room Air 09/16/17 19:27 78 14 120/76 (91) 95 Room Air 09/16/17 19:10 85 22 108/71 (83) 95 Room Air 09/16/17 18:07 97.0 110 26 97 Room Air Vital Signs Date Time Temp Pulse Resp B/P (MAP) Pulse Ox O2 Delivery O2 Flow Rate FiO2 09/18/17 17:07 98 Room Air 09/18/17 14:44 98.3 93 18 134/76 (95) I&O Intake and Output 09/18/17 07:00 Intake Total 4086 ml Balance 4086 ml Intake Oral 1120 ml IV Total 2966 ml # Voids 7 Labs: Laboratory Tests Test 09/18/17 06:06 White Blood Count 8.7 x10^3/uL (4.0-11.0) Red Blood Count 4.15 x10^6/uL (3.50-5.40) Hemoglobin 12.2 g/dL (12.0-15.5) Hematocrit 36.5 % (36.0-47.0) Mean Corpuscular Volume 88 fL (79-100) Mean Corpuscular Hemoglobin 30 pg (25-35) Mean Corpuscular Hemoglobin Concent 34 g/dL (31-37) Red Cell Distribution Width 14.6 % (11.5-14.5) H Platelet Count 293 x10^3/uL (140-400) Sodium Level 139 mmol/L (136-145) Potassium Level 3.7 mmol/L (3.5-5.1) Chloride Level 106 mmol/L (98-107) Carbon Dioxide Level 22 mmol/L (21-32) Anion Gap 11 (6-14) Blood Urea Nitrogen 10 mg/dL (7-20) Creatinine 0.9 mg/dL (0.6-1.0) Estimated GFR (Cockcroft-Gault) 67.7 BUN/Creatinine Ratio 11 (6-20) Glucose Level 78 mg/dL (70-99) Calcium Level 8.9 mg/dL (8.5-10.1) Total Bilirubin 0.3 mg/dL (0.2-1.0) Aspartate Amino Transferase (AST) 29 U/L (15-37) Alanine Aminotransferase (ALT) 25 U/L (14-59) Alkaline Phosphatase 69 U/L (46-116) Creatine Kinase 593 U/L (26-192) H Total Protein 6.5 g/dL (6.4-8.2) Albumin 3.5 g/dL (3.4-5.0) Albumin/Globulin Ratio 1.2 (1.0-1.7) Thyroid Stimulating Hormone (TSH) 1.628 uIU/mL (0.358-3.740) Current Medications: Meds: Current Medications Alprazolam (Xanax) 1 mg 1X ONCE PO Last administered on 09/16/17at 17:51; Start 09/16/17 at 17:45; Stop 09/16/17 at 17:46; Status DC Sodium Chloride 1,000 ml @ 1,000 mls/hr Q1H IV Last administered on 09/16/17at 17:51; Start 09/16/17 at 17:38; Stop 09/16/17 at 18:37; Status DC Lorazepam (Ativan) 1 mg 1X ONCE IV Last administered on 09/16/17at 18:35; Start 09/16/17 at 18:45; Stop 09/16/17 at 18:46; Status DC Sodium Chloride 1,000 ml @ 1,000 mls/hr 1X ONCE IV Last administered on at 20:24; Start 09/16/17 at 18:30; Stop 09/16/17 at 19:29; Status DC Thiamine HCl 100 mg/Sodium Chloride 51 ml @ 999 mls/hr 1X STAT IV Last administered on 09/16/17at 17:50; Start 09/16/17 at 18:28; Stop 09/16/17 at 18:33 ; Status DC Sodium Chloride 50 ml @ As Directed STK-MED ONCE .ROUTE ; Start 09/16/17 at 18: 47; Stop 09/16/17 at 18:48; Status DC Thiamine HCl 200 mg STK-MED ONCE IV ; Start 09/16/17 at 18:47; Stop 09/16/17 at 18:48; Status DC Diphenhydramine HCl (Benadryl) 25 mg 1X ONCE IVP Last administered on at 21:40; Start 09/16/17 at 21:45; Stop 09/16/17 at 21:46; Status DC Thiamine HCl 400 mg/Sodium Chloride 54 ml @ 200 mls/hr 1X ONCE IV Last administered on 09/16/17at 23:18; Start 09/16/17 at 23:00; Stop 09/16/17 at 23:16 ; Status DC Ondansetron HCl (Zofran) 4 mg PRN Q4HRS PRN IV NAUSEA/VOMITING 1ST CHOICE; Start 09/16/17 at 23:15; Stop 09/17/17 at 23:14; Status DC Sodium Chloride 1,000 ml @ 125 mls/hr Q8H IV Last administered on 09/16/17at 23 :36; Start 09/16/17 at 23:30; Stop 09/17/17 at 03:17; Status DC Sodium Chloride 50 ml @ As Directed STK-MED ONCE .ROUTE ; Start 09/16/17 at 23: 11; Stop 09/16/17 at 23:12; Status DC Thiamine HCl 200 mg STK-MED ONCE IV ; Start 09/16/17 at 23:12; Stop 09/16/17 at 23:13; Status DC Sodium Chloride 1,000 ml @ 125 mls/hr Q8H IV ; Start 09/17/17 at 01:30; Stop at 03:17; Status DC Ondansetron HCl (Zofran Odt) 4 mg PRN Q8HRS PRN PO NAUSEA/VOMITING 1ST CHOICE; Start 09/17/17 at 01:30 Lorazepam (Ativan) 1 mg 1X ONCE IV Last administered on 09/17/17at 02:58; Start 09/17/17 at 03:00; Stop 09/17/17 at 03:01; Status DC Alprazolam (Xanax) 0.25 mg PRN TID PRN PO ANXIETY / AGITATION Last administered on 09/18/17at 08:08; Start 09/17/17 at 02:45; Stop 09/18/17 at 16:57 ; Status DC Sertraline HCl (Zoloft) 50 mg DAILY PO Last administered on 09/17/17at 09:00; Start 09/17/17 at 09:00; Stop 09/17/17 at 15:27; Status DC Trazodone HCl (Desyrel) 100 mg QHS PO ; Start 09/17/17 at 21:00; Stop 09/17/17 at 21:00; Status DC Non-Formulary Medication (Disulfiram ) 250 mg QHS PO ; Start 09/17/17 at 21:00; Status UNV Sodium Chloride 1,000 ml @ 125 mls/hr Q8H IV Last administered on 09/18/17at 17 :10; Start 09/17/17 at 00:20 Acetaminophen (Tylenol) 650 mg PRN Q4HRS PRN PO PAIN / TEMP Last administered on 09/17/17at 17:42; Start 09/17/17 at 15:30 Melatonin 6 mg PRN QHS PRN PO INSOMNIA, MAY REPEAT X1 Last administered on 09/17at 21:32; Start 09/17/17 at 18:45 Tramadol HCl (Ultram) 50 mg PRN Q4HRS PRN PO PAIN Last administered on at 05:02; Start 09/17/17 at 21:15 Alprazolam (Xanax) 0.25 mg PRN Q4HRS PRN PO ANXIETY / AGITATION; Start at 17:00; Stop 09/18/17 at 17:02; Status DC Acetaminophen/ Hydrocodone Bitart (Lortab 5/325) 1 tab PRN Q6HRS PRN PO PAIN Last administered on 09/18/17at 17:07; Start 09/18/17 at 17:00 Alprazolam (Xanax) 0.25 mg PRN Q6HRS PRN PO ANXIETY / AGITATION Last administered on 09/18/17at 17:06; Start 09/18/17 at 17:15 Active Scripts Active Reported Nystatin 100,000 Unit/1 Ml Oral.susp 1 Ml PO QID Alprazolam 0.25 Mg Tablet 0.25 Mg PO TID PRN Trazodone Hcl 100 Mg Tablet 100 Mg PO QHS Sertraline Hcl 50 Mg Tablet 50 Mg PO DAILY Disulfiram 250 Mg Tablet 250 Mg PO QHS I have reviewed the current psychotropics carefully including drug interactions. Risk benefit ratio favors no change other than as noted in my dictated progress note. Diagnosis: Problems: (1) Anxiety disorder (2) Adjustment disorder with anxiety SUAD COREY MD Sep 18, 2017 18:22
[2017-09-18 19:00] VITALS: BP 136/93
[2017-09-18] MEDS ORDERED: CALCIUM CARBONATE 500 MG TAB.CHEW PO PRN (20:45)
[2017-09-18] MEDS: DISULFIRAM 250 MG PO SCH (21:00)
[2017-09-18] MEDS: MELATONIN 3 MG TABLET PO PRN ×2 (21:27→23:50)
[2017-09-18] MEDS: clonazePAM 0.5 MG TABLET PO PRN (21:29)
--- NOTE | 2017-09-18 22:41 | PN ---
DATE: 09/18/2017 SUBJECTIVE: The patient is sitting propped up in bed, in no apparent distress. She is definitely less fidgety like than yesterday. Unfortunately, her CK has risen slightly to 593 and I had a lengthy discussion with the patient that I really have no knowledge or ability to predict which way the CK was going and that eventually she needs to be seen by a neurologist to elucidate the cause of her persistently elevated muscle enzymes. The patient stated that she is not comfortable to go home today and she would like to stay one more night. I have made it clear to her even if it tomorrow the levels have risen twice or 3 times the level today they are still, I am unable to find the explanation for her the rise of her muscle enzyme and she is better off going to a place where there is a neurologist can investigate this further. The plan now is for her to be discharged tomorrow no matter what the levels of CK are. PHYSICAL EXAMINATION: GENERAL: On examining her today, she looked well and was clearly in no apparent respiratory distress. VITAL SIGNS: Her heart rate was 93, blood pressure was 134/76, temperature was 98.3, respiratory rate was 18, and oxygen saturation was 98%. The rest of the clinical examination is unremarkable. LABORATORY DATA: Her lab work showed a white cell count of 8700, hemoglobin 12, hematocrit 36, MCV 88, and platelet count of 293,000. Her chemistry showed a serum sodium 139, potassium 3.7, chloride 106, bicarbonate 22, anion gap of 11, BUN 10, creatinine 0.9, estimated GFR was 68 mL per minute. Her glucose was 78, calcium was 8.9. Total bilirubin, AST, ALT, alkaline phosphatase were normal. Her CK is elevated at 593. Total protein 6.5, albumin was 3.5. Her TSH was 1.6-8. ASSESSMENT: 1. 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 2. Persistently mildly elevated CK. No evidence of unlike her previous presentation where her CK were 86,000. PLAN: My plan is to continue with IV fluid. We will increase her Xanax to 4 times a day as well as Lortab and put her back on her Zoloft. We will repeat her labs tomorrow and I made it very clear to her that she has to go home tomorrow, no matter what the enzymes are less like in thousands or millions. MUNA BAER MD DR: DOREEN/maryellen JOB#: [id number] / [id number]
--- NOTE | 2017-09-18 23:30 | CONS ---
DATE OF CONSULTATION: 09/17/2017 This late entry for 09/17/2017 covers elements not covered in my initial note of 09/17/2017. IDENTIFYING DATA: The patient is a 46-year-old female seen in bed [address] [facility], for a psychiatric consult requested by Dr. Dougherty on account of the patient's abnormal body movements, which are not entirely explained from a medical neurological standpoint. The patient was seen individually evening of 09/17/2017. Discussed with nursing staff, reviewed the chart, discussed with Dr. Dougherty personally and also met with the patient's mother to review her history. CHIEF COMPLAINT: "I can't stop these movements. The last time they happened, they were so severe. I was taken to [facility] and I had rhabdomyolysis. They treated that and the movements got better. At this time, they started and I quickly brought myself here." Mother concurs. HISTORY OF PRESENT ILLNESS: The patient presented to the ER with the complaint of ataxia and flailing movements, which was similar to the presentation on 08/04/2017, the last time when she was diagnosed with rhabdomyolysis and then transferred to [place] with a CK of 85,000. From a psychiatric standpoint, she has a history of alcoholism, but she states she has not used any for some time and she has had an inpatient treatment at [facility] and/or later started on Antabuse together with Zoloft and trazodone the latter for her insomnia. She has had another recurrence as noted above. PAST PSYCHIATRIC HISTORY: She denies any other psychiatric problems other than the alcohol and no prior treatment other than as noted above. PAST SURGICAL HISTORY: Tonsillectomy, skin cancer resection, right forehead, history of . ALLERGIES: PENICILLIN. CURRENT PSYCHOTROPICS: EMRAD was reviewed and she is on Antabuse. Zoloft and trazodone has been stopped by Dr. Dougherty since admission since there is a question whether some of her movement disorder could be complicated by these two medications. FAMILY HISTORY: Mother has ulcerative colitis. Father at 66 of esophageal cancer. SOCIAL HISTORY: She is single, has 14-year-old son lives with her mother. She used to drink vodka, but none for some time. MENTAL STATUS EXAMINATION: The patient was seen individually. She showed me several video recordings on the phone of the movement disorder she had when she was admitted to [place] and then the recent ones at home where she is lying on the floor, flailing her arms and legs. She still has some abnormal movements, anxious, restless. Speech coherent, abstraction fair, computation impaired, language function intact. No active suicidal or homicidal ideation. Attention span is short. No suicidal or homicidal ideation. LABORATORY DATA: White cells 9500, hemoglobin 14, hematocrit 40. CK 386,000. Urine drug screen negative for opiates, methadone, barbiturates, PCP, amphetamines, methamphetamine, benzodiazepines, cocaine, cannabinoids and alcohol. IMPRESSION: I do not find any clear psychiatric disorder to account for her symptoms. She has significant elevation of CK. The drug screen is negative from what has been tested. For now, I would go with a diagnosis of adjustment disorder and an anxiety disorder, but it is certainly not clear at this stage whether these disorders are a complicating factor for her initial movement disorder presentation or even the compounding factor in these. This would have to be reassessed as hospitalization progresses. PLAN: From a psychiatric standpoint, I have nothing more to offer at this stage, but we may consider adding Klonopin for anxiety. Given a history of alcohol abuse, I will be careful with this, however. Dr. Dougherty, thank you for the opportunity to participate in your patient's care. MAN Jose COREY MD DR: JOSEF/maryellen JOB#: [id number] / [id number]
[2017-09-18 23:55] VITALS: BP 136/84
[2017-09-19] MEDS: IV NORMAL SALINE 1,000ML 1,000 ML IV SCH ×2 (00:20→02:11)
[2017-09-19 06:00] VITALS: BP 149/81
[2017-09-19 06:44] LABS: CALCIUM 8.7 mg/dL (8.5-10.1); CREATININE 0.8 mg/dL (0.6-1.0); GFR 77.6; POTASSIUM 3.9 mmol/L (3.5-5.1); TOTAL BILIRUBIN 0.2 mg/dL (0.2-1.0); TOTAL PROTEIN 5.9 g/dL (6.4-8.2)
[2017-09-19] MEDS: clonazePAM 0.5 MG TABLET PO PRN (10:07)
[2017-09-19] MEDS: HYDROcodone/APAP 5/325MG 1 TAB TABLET PO PRN (10:08)
--- NOTE | 2017-09-19 10:27 | CONS ---
DATE OF CONSULTATION: 09/18/2017 NEUROLOGIC CONSULTATION REFERRING PHYSICIAN: Terese Dougherty MD REASON FOR CONSULTATION: Gait disturbances and elevated CPK. HISTORY OF PRESENT ILLNESS: This is a 46-year-old female who was admitted through Emergency Room on 09/16/2017 after she presented with chief complaints of weakness of the lower extremities and gait disturbances. The patient stated she was admitted with the same conditions at [facility] on 08/04/2017 after she was found to have rhabdomyolysis. Her CPK was extremely elevated at 85,000. She was admitted to ICU at [facility] and treated with IV fluids and urine alkalinization. This time, the patient stated her legs were very weak and have difficulty to walk along with flailing movements. She denies headaches, visual disturbances, nausea, vomiting, chest pain, shortness of breath or palpitation, dysarthria, dysphagia, or paraesthesia. PAST MEDICAL HISTORY: Significant for rhabdomyolysis as described above, depressions, anxiety, history of alcoholism. The last drink was on 06/24/2017. PAST SURGICAL HISTORY: Significant for tonsillectomy, skin cancer, required resection and . FAMILY HISTORY: Father at age of 66 due to esophageal cancer and heart disease. Mother is alive with history of ulcerative colitis. SOCIAL HISTORY: The patient is single. She has one son. She denies smoking and alcohol drinking and the last drink was on . CURRENT HOME MEDICATIONS: Trazodone, Zoloft, disulfiram, and Claritin-D. ALLERGIES: PENICILLIN. REVIEW OF SYSTEMS: A 10-point review of system was performed and as mentioned above in history of present illness. PHYSICAL EXAMINATION: GENERAL: Well-developed, well-nourished white female, not in acute distress. She weighs 135.4 pounds. VITAL SIGNS: Blood pressure 123/76, respiratory rate 20, pulse is 89, temperature 98.4, oxygen saturation is 97% on room air. HEENT: Normocephalic, atraumatic, otherwise unremarkable. NECK: Supple. Negative for carotid bruit, lymphadenopathy, or thyromegaly. LUNGS: Clear to A and P. CARDIOVASCULAR: Regular rhythm, normal S1, S2. There is no S3, S4, or murmur. ABDOMEN: Soft. Bowel sounds positive. EXTREMITIES: Negative for cyanosis, clubbing, pitting edema. NEUROLOGICAL EXAMINATION: Mental status: The patient is alert and oriented x 3. Speech is fluent. There is no language dysfunction. Memory, judgment, and abstract thinking are normal. The patient denies hallucination or delusion. Cranial nerves: Visual rain are full. The pupils are reactive to light and accommodation. The extraocular movements are intact. There is no nystagmus. There is no facial motor or sensory deficit. Hearing is intact bilaterally. The palate is elevated symmetrically. Sternocleidomastoid muscles are powerful bilaterally. The patient shrugs her shoulders symmetrically and protrudes her tongue in the midline without fasciculation or atrophy. Motor examination: No focal muscle bulk was seen. The tone is normal. The strength is 5/5 throughout. Sensory examination: Normal pinprick, light touch, vibratory and position senses. Deep tendon reflexes were symmetric and active without pathology responses. Gait and coordinations were normal. LABORATORY DATA: CBC revealed white blood cells of 8700, hemoglobin 12.2, hematocrit 36.5, platelet count 293,000. Chemistry revealed sodium of 139, potassium 3.7, chloride 105, CO2 22, BUN 10, creatinine 0.9, glucose is 78, calcium 8.9. Liver enzymes are normal. CPK is elevated at 593. It was 350 on 09/16/2012. Troponin level is less than 0.017. TSH is normal at 1.63. Urine drug screen is negative. IMPRESSION: History of gait disturbance with elevated CPK and diagnosis of rhabdomyolysis with normal current neurological examination. The possible etiologies of elevated CPK includes muscle disease, neuromuscular disorders, recurrent rhabdomyolysis, viral infections, and possible underlying medication side effects, idiopathic elevated CPK has been reported. RECOMMENDATIONS: 1. Continue with current management initiated by Dr. Dougherty with IV fluid. 2. Repeat CPK. 3. Follow up in Neurologic Clinic on outpatient basis to perform an EMG to rule out myopathy versus neuromuscular disorder. 4. If necessary, we will obtain muscle biopsy. M Shola GEORGE MD DR: SUNITHA/maryellen JOB#: [id number] / [id number]
[2017-09-19 11:29] VITALS: BP 142/90
[2017-09-19] MEDS ORDERED: CLON0.5T3 PO (14:09)
[2017-09-19] MEDS ORDERED: HYDR-2758 PO (14:09)
[2017-09-19 15:00] VITALS: BP 139/99
--- NOTE | 2017-09-19 15:36 | DS ---
DATE OF DISCHARGE: 09/19/2017 HOSPITAL COURSE: The patient is a 46-year-old female patient who was admitted with a complaint of unsteady gait and abnormal movement. Her muscle enzymes were slightly elevated and she basically said that she had similar presentation when she came here last time where she had severe rhabdomyolysis with CK level of more than 85,000. At the time she was transferred to [facility] and was treated aggressively with IV fluid and urine alkalinization and she averted acute kidney injury. She was seen in consultation by Dr. Coles as well as Dr. Delgado, and apparently he recommended to discontinue her Zoloft, sertraline and start her on clonazepam. Her initial CPK continued to rise; however, her CK today is down to 381. PHYSICAL EXAMINATION: GENERAL: When I saw her today, she looked well and was clearly in no apparent respiratory distress, pale, but no jaundice, cyanosis, or thyromegaly. No jugular venous distention. No limb edema. VITAL SIGNS: Her heart rate was 87, blood pressure 142/90, temperature was 98.5, respiratory rate was 16, and oxygen saturation was 95%. HEAD, EYES, EARS, NOSE AND THROAT: Normocephalic, atraumatic. NECK: Supple. HEART: Showed normal first and second heart sounds. No gallop, rub or murmur. CHEST: Clear to auscultation. No crepitation or rhonchi. ABDOMEN: Distended, soft, nontender. NEUROLOGIC: She is awake, alert, responding appropriately. Cranial nerves intact. She moves extremities without difficulty. She ambulates without assistance or assistive devices. INS AND OUTS: Her intake was 4240, output was 450. LABORATORY DATA: This morning showed a serum sodium 140, potassium 3.9, chloride 108, bicarbonate 24, anion gap of 8, BUN 8, creatinine 0.8, estimated GFR was 77 mL per minute. Her glucose was 89, calcium was 8.7. Total bilirubin, AST, ALT, alkaline phosphatase were normal. Her CK was 381. Total protein was 5.9, albumin 3. TSH was 1.628. Her white cell count was 8700, hemoglobin 12, hematocrit 36, MCV 88 and platelet count 293. DISCHARGE MEDICATIONS: She will be discharged on following medications: Clonazepam 0.5 mg twice a day, hydrocodone 5/325 one tablet every 6 hours, disulfiram 250 mg daily and sertraline 50 mg daily. FINAL DISCHARGE DIAGNOSES: Anxiety, depression, chronic back pain, and alcoholism in remission. MUNA BAER MD DR: DOREEN/maryellen JOB#: [id number] / [id number]
--- NOTE | 2017-09-20 01:15 | PN ---
DATE: 09/18/2017 PSYCHIATRIC PROGRESS NOTE This is late entry of 09/18/2016, covers elements not covered in my initial note 09/18/2017. SUBJECTIVE: Discussed the patient with Dr. Dougherty and with nursing staff. Met with the patient in her room and met with her mother as well. The patient's CK remains elevated. No clear psychiatric reason to account for it. No suicidal or homicidal ideation. She remains somewhat anxious, has constant movement, but perhaps less so than before. No suicidal or homicidal ideation. IMPRESSION: Unchanged from initial note, adjustment disorder with anxiety. PLAN: Defer to Neurology and medical followup for diagnostic clarification. May consider changing the short acting benzodiazepines to Klonopin. The patient should follow up outpatient with a psychiatrist once the medical diagnoses and reasons for her raised CK are clarified. MAN Jose COREY MD DR: JOSEF/maryellen JOB#: [id number] / [id number]
== END 2017-09-19 17:35 | disposition home or self-care (01) ==
LOC: ER 17:27 → ICU 22:57 → INTOOBSV 22:57 → ER 09-17 00:04 → 1 SOUTH 09-17 06:00
PROVIDERS: ADMIT Internal Medicine; ATTEND Internal Medicine
DX: M62.82 Rhabdomyolysis (principal); G25.5 Other chorea; F10.21 Alcohol dependence, in remission; F32.9 Major depressive disorder, single episode, unspecified; G89.29 Other chronic pain; N17.9 Acute kidney failure, unspecified; Z80.0 Family history of malignant neoplasm of digestive organs; Z85.828 Personal history of other malignant neoplasm of skin
CPT/HCPCS: 36415; 70450; 80048; 80053; 80307; 82550; 84443; 84484; 85025; 85027; 87641; 93005; 96361; 96365; 96375; 99285; G0378; G0379; G0480; J1200; J2060; 96366; G0479; J7030

== ENCOUNTER 2018-08-19 16:40 | Emergency (ER) | payer BC, OTHER ==
[~2018-08-19] VITALS: Ht 158.8 cm; Wt 56.2 kg
[~2018-08-19 16:40] MED LIST changes: +ALPR0.254 PO; +CLON0.5T11 PO; +DISU250T PO; +HYDR-2155 PO; +LORA-254 PO; -LORA-434 PO; +NYST1000 PO; +SERT50TA8 PO; +TRAZ-86 PO
[2018-08-19] MEDS ORDERED: IV NORMAL SALINE 1,000ML 1,000 ML IV SCH (16:49)
--- NOTE | 2018-08-19 16:55 | PHYS DOC ---
Past History Past Medical History: Alcoholism (OSCAR CONNER MD) Past Surgical History: Tonsillectomy, Other (OSCAR CONNER MD) Alcohol Use: Heavy Drug Use: None (OSCAR CONNER MD) Adult General Chief Complaint Chief Complaint: ALTERED MENTAL STATUS HPI HPI Patient is a 47 y/f who presents to the emergency department via EMS. The historian is the patient's mother, as well as EMS. The patient's mother states that the patient has a history of alcoholism, and had been sober for about a year, but the patient's mother states that the patient seemed to be doing well this morning, but the mother left the house for about an hour and a half, and came back and found the patient altered and confused, and somewhat lethargic. There is a questionable odor of alcohol on the patient's breath and she states she did drink some vodka today. She denies any pain, or any known trauma. She is limited historian secondary to her altered mental status. (OSCAR CONNER MD) Review of Systems Review of Systems Unable to obtain review of systems secondary to patient's mental status (OSCAR CONNER MD) Current Medications Current Medications Current Medications Medications (Trade) Dose Ordered Sig/Jose Start Time Stop Time Status Last Admin Dose Admin Sodium Chloride 1,000 ml @ 1,000 mls/hr Q1H 08/19/18 16:49 08/19/18 17:48 UNV (OSCAR CONNER MD) Allergies Allergies Allergies Coded Allergies Type Severity Reaction Last Updated Verified amoxicillin Allergy Intermediate rash 08/04/17 Yes ampicillin Allergy Intermediate rash 08/04/17 Yes ciprofloxacin Allergy Intermediate rash 08/04/17 Yes clavulanic acid Allergy Intermediate rash 08/04/17 Yes (OSCAR CONNER MD) Physical Exam Physical Exam PHYSICAL EXAM: CONSTITUTIONAL: Well developed, well nourished HEAD: normocephalic, atraumatic EENT: PERRL, EOMI. Conjunctivae normal color, there is no obvious nystagmus, but the patient is unable to participate or cooperate with assessment or gaze testing, sclerae non-icteric; moist mucous membranes. NECK: Supple, non-tender; no meningismus. LUNGS: Lungs CTA, breathing even and unlabored. Normal air movement. HEART: Regular rate and rhythm, no murmur CHEST: No deformity; non-tender ABDOMEN: The abdomen is soft, and non-tender, no masses or bruits. EXTREM: Normal ROM; no deformity, no calf tenderness. Normal pulses palpable in all extremities. There is no pedal edema. SKIN: No rash; no diaphoresis NEURO: Patient is somnolent but arousable, no focal deficit. BACK: No CVA TTP. (OSCAR CONNER MD) Current Patient Data Lab Results Laboratory Tests Test 08/19/18 16:48 08/19/18 16:49 08/19/18 16:57 White Blood Count 12.3 x10^3/uL Red Blood Count 4.28 x10^6/uL Hemoglobin 12.6 g/dL Hematocrit 39.0 % Mean Corpuscular Volume 91 fL Mean Corpuscular Hemoglobin 30 pg Mean Corpuscular Hemoglobin Concent 32 g/dL Red Cell Distribution Width 14.5 % Platelet Count 373 x10^3/uL Neutrophils (%) (Auto) 47 % Lymphocytes (%) (Auto) 49 % Monocytes (%) (Auto) 4 % Eosinophils (%) (Auto) 0 % Basophils (%) (Auto) 0 % Neutrophils # (Auto) 5.8 x10^3uL Lymphocytes # (Auto) 6.0 x10^3/uL Monocytes # (Auto) 0.4 x10^3/uL Eosinophils # (Auto) 0.0 x10^3/uL Basophils # (Auto) 0.0 x10^3/uL Platelet Estimate Pending Sodium Level 143 mmol/L Potassium Level 3.5 mmol/L Chloride Level 106 mmol/L Carbon Dioxide Level 24 mmol/L Anion Gap 13 Blood Urea Nitrogen 17 mg/dL Creatinine 0.9 mg/dL Estimated GFR (Cockcroft-Gault) 67.4 BUN/Creatinine Ratio 19 Glucose Level 101 mg/dL Calcium Level 8.0 mg/dL Magnesium Level 2.0 mg/dL Total Bilirubin 0.2 mg/dL Aspartate Amino Transf (AST/SGOT) 20 U/L Alanine Aminotransferase (ALT/SGPT) 16 U/L Alkaline Phosphatase 68 U/L Troponin I Quantitative < 0.017 ng/mL Total Protein 5.9 g/dL Albumin 3.3 g/dL Albumin/Globulin Ratio 1.3 Blood Gas pH 7.34 Blood Gas PCO2 42 mmHg Blood Gas PO2 93 mmHg Blood Gas HCO3 23 mmol/L Arterial Bld O2 Saturation (Calc) 97 % FiO2 21 % Ammonia 36 mcmol/L Salicylates Level 3.3 mg/dL Salicylate Last Dose Date Pending Salicylate Last Dose Time Pending Acetaminophen Level 22.4 mcg/mL Acetaminophen Last Dose Date Pending Acetaminophen Last Dose Time Pending Ethyl Alcohol Level 402 mg/dL Creatine Kinase 157 U/L Current Medications Medications (Trade) Dose Ordered Sig/Jose Route PRN Reason Start Time Stop Time Status Last Admin Dose Admin Sodium Chloride 1,000 ml @ 1,000 mls/hr Q1H IV 08/19/18 16:49 08/19/18 17:48 DC 08/19/18 17:28 Ondansetron HCl (Zofran) 4 mg 1X ONCE IV 08/19/18 18:00 08/19/18 18:01 UNV (OSCAR CONNER MD) EKG EKG [] (OSCAR CONNER MD) Radiology/Procedures Radiology/Procedures [] (OSCAR CONNER MD) Course & Med Decision Making Course & Med Decision Making 6:00 PM: The patient's condition remained stable. She is somewhat nauseated will be given some Zofran. She'll continue to be observed in the emergency department until such time as she is clinically sober. Care will be turned over to Dr. Medellin at shift change, pending final disposition. (OSCAR CONNER MD) Course & Med Decision Making Patient's care was received from Dr. Conner 6:00 PM. At that time, patient's blood alcohol was over 400. During patient's stay, she has received IV fluids and has been able to ambulate to the bathroom. Repeat blood alcohol was obtained after 4 hours and is 297. Patient will be discharged home. (RENAE MEDELLIN Jr. DO) Dragon Disclaimer Dragon Disclaimer This electronic medical record was generated, in whole or in part, using a voice recognition dictation system. (OSCAR CONNER MD) Departure Departure: Impression: Primary Impression: Acute alcohol intoxication Disposition: HOME, SELF-CARE Condition: STABLE Referrals: PCP,NO (PCP) Patient Instructions: Alcohol Intoxication Problem Qualifiers Primary Impression: Acute alcohol intoxication Complication of substance-induced condition: uncomplicated Qualified Codes: F10.920 - Alcohol use, unspecified with intoxication, uncomplicated OSCAR CONNER MD Aug 19, 2018 16:55 RENAE MEDELLIN Jr. DO Aug 19, 2018 21:42
[2018-08-19 17:07] LABS: BGAS PH 7.34 (7.35-7.45)
--- NOTE | 2018-08-19 17:23 | RAD ---
CT Head W/O Contrast: History: AMS, PT UNCCOPERATVE Comparison: September 16, 2017 Axial images were obtained without contrast. The hawthorne and white matter appears normal and symmetrical for the patients age. There is no mass effect, extraaxial fluid collections or hydrocephalus. There is no gross bleed. There is no focal loss of hawthorne-white matter distinction to suggest acute ischemia, i.e. stroke. Impression: No acute findings. RS Compliance Statement: One or more of the following individualized dose reduction techniques were utilized for this examination: 1. Automated exposure control 2. Adjustment of the mA and/or kV according to patient size 3. Use of iterative reconstruction technique Electronically signed by: Adi Terrazas III, MD (08/19/2018 5:20 PM) [id number]
[2018-08-19 17:27] LABS: BASO % 0 % (0-3); EOS % 0 % (0-3); HEMOGLOBIN 12.6 g/dL (12.0-15.5); LYMPH % 49 % (24-48); MEAN CORPUSCULAR HEMOGLOBIN 30 pg (25-35); MEAN CORPUSCULAR HGB CONC 32 g/dL (31-37); MEAN CORPUSCULAR VOLUME 91 fL (79-100); MONO # 0.4 x10^3/uL (0.0-1.1); MONO % 4 % (0-9); NEUT # 5.8 x10^3uL (1.8-7.7); NEUT % 47 % (31-73); PLATELET COUNT 373 x10^3/uL (140-400); RED BLOOD COUNT 4.28 x10^6/uL (3.50-5.40); RED CELL DISTRIBUTION WIDTH 14.5 % (11.5-14.5); WHITE BLOOD COUNT 12.3 x10^3/uL (4.0-11.0)
[2018-08-19 17:29] LABS: ALBUMIN 3.3 g/dL (3.4-5.0); ALBUMIN/GLOBULIN RATIO 1.3 (1.0-1.7); CREATININE 0.9 mg/dL (0.6-1.0); GFR 67.4; POTASSIUM 3.5 mmol/L (3.5-5.1); TOTAL BILIRUBIN 0.2 mg/dL (0.2-1.0); TOTAL PROTEIN 5.9 g/dL (6.4-8.2)
[2018-08-19 17:33] LABS: ACETAMIN 22.4 mcg/mL (10-30); SALIC 3.3 mg/dL (2.8-20.0)
[2018-08-19 17:39] LABS: ETHANOL 402 mg/dL (0-10)
[2018-08-19 17:53] LABS: BACTERIA,URINE 0 /HPF (0-FEW); BILIRUBIN,URINE NEG (NEG); CLARITY,URINE HAZY; COLOR,URINE YELLOW; GLUCOSE,URINE NEG (NEG); NITRITE,URINE NEG (NEG); RBC,URINE 0 /HPF (0-2); SQUAMOUS EPITHELIAL CELL,UR FEW /LPF; UROBILINOGEN,URINE 0.2 mg/dL (0.2 mg/dL); WBC,URINE 0 /HPF (0-4)
[2018-08-19 17:54] LABS: BARBITURATES NEG (NEG); BENZODIAZEPINES NEG (NEG); CANNABINOIDS NEG (NEG); COCAINE NEG (NEG); METHADONE NEG (NEG); OPIATES NEG (NEG); PHENCYCLIDINE NEG (NEG)
[2018-08-19] MEDS ORDERED: ONDANSETRON PF 4 MG/2 ML VIAL. IV ONE (18:00)
[2018-08-19 18:20] LABS: AMPHETAMINE/METHAMPHETAMINE NEG (NEG)
--- NOTE | 2018-08-19 19:05 | EKG ---
[address] [address] Test Date: 2018-08-19 Test Time: 19:02:06 Pat Name: VERNA CHILD Department: Room: Gender: F [employer] Shear Operator: : 1970 Requested By: OSCAR CONNER Order Number: [id number] Reading MD: Yeyo Greco MD Measurements Intervals [place] Rate: 73 P: 42 WI: 134 QRS: 24 QRSD: 86 T: 41 QT: 396 QTc: 440 Interpretive Statements SINUS RHYTHM Electronically Signed On 08-22-2018 16:14:20 CDT by Yeyo Greco MD
[2018-08-19 19:19] LABS: % MONOS 5 % (0-10); % SEGS 51 % (35-66)
[2018-08-19 19:20] LABS: % ATYL 5 % (0-0); % LYMPHS 39 % (24-48); PLT ESTIMATE ADEQUATE (ADEQUATE)
[2018-08-19 19:21] LABS: HYPOCHROMIA SLIGHT
[2018-08-19] MEDS ORDERED: KETOROLAC 30 MG/ML VIAL. IV ONE (19:45)
--- NOTE | 2018-08-19 20:26 | RAD ---
PORTABLE CHEST 1V History: EtOH, altered mental status Comparison: August 04, 2017 Findings: AP portable view of the chest is submitted. There is no infiltrate, pleural fluid, pneumothorax. Heart size is stable, within normal limits. Impression: 1. No acute radiographic abnormality is identified. Electronically signed by: John Lundberg MD (08/19/2018 8:23 PM) [facility]
[2018-08-19 20:55] VITALS: BP 101/58
[2018-08-19] MEDS ORDERED: LIDO15SO2 MM (21:52)
== END 2018-08-19 21:52 | disposition home or self-care (01) ==
LOC: ER 16:40
DX: F10.229 Alcohol dependence with intoxication, unspecified (principal); R41.82 Altered mental status, unspecified; Z88.1 Allergy status to other antibiotic agents; Y90.8 Blood alcohol level of 240 mg/100 ml or more
CPT/HCPCS: 36415; 70450; 71045; 80053; 80307; 81001; 82140; 82550; 82803; 83735; 84484; 85007; 85025; 85610; 85730; 93005; 96361; 96374; 96375; 99284; G0480; G6039; J1885; J2405; 80329; 82003; J7030

== ENCOUNTER 2019-07-02 10:33 | Emergency (ER) | payer BC ==
[~2019-07-02] VITALS: Ht 157.5 cm; Wt 59.0 kg
[~2019-07-02 10:33] MED LIST changes: -CLON0.5T11 PO; +CLON0.5T4 PO; +LIDO15SO2 MM; +TRAZ-125 PO; -TRAZ-86 PO
--- NOTE | 2019-07-02 10:56 | PHYS DOC ---
Past History Past Medical History: Alcoholism Past Surgical History: Tonsillectomy, Other Alcohol Use: Heavy Drug Use: None Adult General Chief Complaint Chief Complaint: ALCOHOL INTOXICATION HPI HPI Patient is a 48-year-old female with a history of alcoholism who presents to the emergency department via EMS. She states her chief complaint is "I'm just drunk". 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 However, the patient admits to drinking 2 pints over the past 12 hours. She has not having any focal motor deficit, numbness, weakness, or vision changes. I did see the patient in August for alcohol intoxication and she did not go to rehabilitation at that time. She has no other complaints at this time. She reports feeling mildly anxious. Review of Systems Review of Systems Constitutional: Denies fever or chills [] Eyes: Denies change in visual acuity, redness, or eye pain [] HENT: Denies nasal congestion or sore throat [] Respiratory: Denies cough or shortness of breath [] Cardiovascular: The patient denies any shortness of breath, chest pain, palpitations, or orthopnea [] GI: Denies abdominal pain, nausea, vomiting, bloody stools or diarrhea [] : Denies dysuria or hematuria [] Musculoskeletal: Denies back pain or joint pain [] Integument: Denies rash or skin lesions [] Neurologic: Denies headache, focal weakness or sensory changes [] Endocrine: Denies polyuria or polydipsia [] All other systems were reviewed and found to be within normal limits, except as documented in this note. Allergies Allergies Allergies Coded Allergies Type Severity Reaction Last Updated Verified amoxicillin Allergy Intermediate rash 08/04/17 Yes ampicillin Allergy Intermediate rash 08/04/17 Yes ciprofloxacin Allergy Intermediate rash 08/04/17 Yes clavulanic acid Allergy Intermediate rash 08/04/17 Yes Physical Exam Physical Exam PHYSICAL EXAM: CONSTITUTIONAL: Well developed, well nourished HEAD: normocephalic, atraumatic EENT: PERRL, EOMI. Conjunctivae are injected bilaterally, there is nystagmus present on lateral gaze,, sclerae non-icteric; moist mucous membranes. NECK: Supple, non-tender; no meningismus. LUNGS: Lungs CTA, breathing even and unlabored. Normal air movement. HEART: Regular rate and rhythm, no murmur CHEST: No deformity; non-tender ABDOMEN: The abdomen is soft, and non-tender, no masses or bruits. EXTREM: Normal ROM; no deformity, no calf tenderness. Normal pulses palpable in all extremities. There is no pedal edema. SKIN: No rash; no diaphoresis NEURO: Alert; normal cognition; CN's grossly intact; strength grossly intact without focal deficit. the patient does exhibit mildly slurred speech consistent with acute alcohol intoxication. BACK: No CVA TTP. PSYCHIATRIC: The patient denies suicidal ideation. EKG EKG [] Radiology/Procedures Radiology/Procedures [] Course & Med Decision Making Course & Med Decision Making 11:20 AM: The patient's mother and son are in the emergency department at this time. I discussed, in front of the patient and with her permission, the importance of outpatient rehabilitation, to help her alcoholism. The patient requests prescription for Ativan to help with the withdrawals, and I stressed the importance of continued rehabilitation in recovery in the setting of an alcohol treatment program, not nearly her prescription, was critical to help get her better. She will be given an alcohol recovery resources. The importance of close outpatient follow-up and addiction treatment was stressed in detail with the patient and her family. She is able to ambulate without any difficulty. Dragon Disclaimer Dragon Disclaimer This electronic medical record was generated, in whole or in part, using a voice recognition dictation system. Departure Departure: Impression: Primary Impression: Acute alcohol intoxication Additional Impression: Alcoholism Disposition: 01 HOME, SELF-CARE Condition: STABLE Referrals: CHOLO ESPARZA (PCP) Patient Instructions: Alcohol Intoxication, Alcohol Problems, Chronic Alcoholism Problem Qualifiers OSCAR CONNER MD Jul 02, 2019 10:56
[2019-07-02 10:58] VITALS: BP 133/90
[2019-07-02] MEDS ORDERED: LORazepam 1 MG TABLET PO ONE (11:40)
== END 2019-07-02 11:52 | disposition home or self-care (01) ==
LOC: ER 10:33
DX: F10.229 Alcohol dependence with intoxication, unspecified (principal); Y90.9 Presence of alcohol in blood, level not specified; Z90.89 Acquired absence of other organs
CPT/HCPCS: 99283

== ENCOUNTER 2019-09-21 02:51 | Emergency (ER) | payer SELFPAY ==
[~2019-09-21] VITALS: Ht 157.5 cm; Wt 59.0 kg
[~2019-09-21 02:51] MED LIST changes: -LIDO15SO2 MM; +LIDO20SO10 MM
[2019-09-21] MEDS ORDERED: IV NORMAL SALINE 1,000ML 1,000 ML IV ONE (03:45)
--- NOTE | 2019-09-21 03:45 | PHYS DOC ---
Past History Past Medical History: Alcoholism Past Surgical History: No Surgical History Alcohol Use: Heavy Drug Use: None General Adult EDM: Chief Complaint: OTHER COMPLAINTS HPI: HPI: 48-year-old female presents after drinking some alcohol. The patient tells me that she felt like she was having an allergic reaction "a few hours ago" but that it was better now. She then asked me what Heroin smells like, because she thinks her son may have been cooking heroin. She has no other complaints at this time. Review of Systems: Review of Systems: Constitutional: Denies fever or chills Eyes: Denies change in visual acuity HENT: Denies nasal congestion or sore throat Respiratory: Denies cough or shortness of breath Cardiovascular: Denies chest pain or edema GI: Denies abdominal pain, nausea, vomiting, bloody stools or diarrhea : Denies dysuria Musculoskeletal: Denies back pain or joint pain Integument: Denies rash Neurologic: Denies headache, focal weakness or sensory changes Endocrine: Denies polyuria or polydipsia Lymphatic: Denies swollen glands Psychiatric: anxiety Heart Score: Risk Factors: Risk Factors: DM, Current or recent (<one month) smoker, HTN, HLP, family history of CAD, obesity. Risk Scores: Score 0 - 3: 2.5% MACE over next 6 weeks - Discharge Home Score 4 - 6: 20.3% MACE over next 6 weeks - Admit for Clinical Observation Score 7 - 10: 72.7% MACE over next 6 weeks - Early Invasive Strategies Current Medications: Current Meds: Current Medications Medications (Trade) Dose Ordered Sig/Jose Start Time Stop Time Status Last Admin Dose Admin Sodium Chloride 1,000 ml @ 1,000 mls/hr 1X ONCE 09/21/19 03:45 09/21/19 04:44 UNV Allergies: Allergies: Allergies Coded Allergies Type Severity Reaction Last Updated Verified amoxicillin Allergy Intermediate rash 09/21/19 Yes ampicillin Allergy Intermediate rash 09/21/19 Yes ciprofloxacin Allergy Intermediate rash 09/21/19 Yes clavulanic acid Allergy Intermediate rash 09/21/19 Yes Physical Exam: PE: Constitutional: Well developed, well nourished, no acute distress, non-toxic appearance. [] HENT: Normocephalic, atraumatic, bilateral external ears normal, oropharynx dry, no oral exudates, nose normal. [] Eyes: PERRLA, EOMI, conjunctiva normal, no discharge. [] Neck: Normal range of motion, no tenderness, supple, no stridor. [] Cardiovascular: Heart rate regular rhythm, no murmur [] Lungs & Thorax: Bilateral breath sounds clear to auscultation [] Abdomen: Bowel sounds normal, soft, no tenderness, no masses, no pulsatile masses. [] Skin: Warm, dry, no erythema, no rash. [] Back: No tenderness, no CVA tenderness. [] Extremities: No tenderness, no cyanosis, no clubbing, ROM intact, no edema. [] Neurologic: Alert and oriented X 3, normal motor function, normal sensory function, no focal deficits noted. [] Psychologic: Affect pressured, mood anxious. [] EKG: EKG: [] Radiology/Procedures: Radiology/Procedures: [] Course & Med Decision Making: Course & Med Decision Making Pertinent Labs and Imaging studies reviewed. (See chart for details) The patient's labs are unremarkable. Her alcohol level is 274. I suspect this is the crux of the patient's problems. I have advised that she drink some water and get some sleep. She is stable for discharge at this time. [] Dragon Disclaimer: Dragon Disclaimer: This electronic medical record was generated, in whole or in part, using a voice recognition dictation system. Departure Departure: Impression: Primary Impression: Alcohol intoxication Qualified Codes: F10.920 - Alcohol use, unspecified with intoxication, uncomplicated Disposition: HOME, SELF-CARE Condition: STABLE Referrals: PCP,NO (PCP) Patient Instructions: Alcohol Intoxication, [place] ALANNA CARDENAS DO Sep 21, 2019 03:45
[2019-09-21 03:48] LABS: BASO % 0 % (0-3); EOS % 1 % (0-3); HEMATOCRIT 42.4 % (36.0-47.0); HEMOGLOBIN 14.1 g/dL (12.0-15.5); LYMPH % 53 % (24-48); MEAN CORPUSCULAR HEMOGLOBIN 31 pg (25-35); MEAN CORPUSCULAR HGB CONC 33 g/dL (31-37); MEAN CORPUSCULAR VOLUME 93 fL (79-100); MONO # 0.3 x10^3/uL (0.0-1.1); MONO % 3 % (0-9); NEUT # 3.2 x10^3uL (1.8-7.7); NEUT % 42 % (31-73); PLATELET COUNT 354 x10^3/uL (140-400); RED BLOOD COUNT 4.59 x10^6/uL (3.50-5.40); WHITE BLOOD COUNT 7.5 x10^3/uL (4.0-11.0)
[2019-09-21 03:51] LABS: CREATININE 0.8 mg/dL (0.6-1.0); GFR 76.9; POTASSIUM 3.9 mmol/L (3.5-5.1)
[2019-09-21 04:02] LABS: ALBUMIN 3.9 g/dL (3.4-5.0); ALBUMIN/GLOBULIN RATIO 1.3 (1.0-1.7); TOTAL BILIRUBIN 0.2 mg/dL (0.2-1.0)
[2019-09-21 04:30] VITALS: BP 122/87
== END 2019-09-21 04:30 | disposition home or self-care (01) ==
LOC: ER 02:51
DX: F10.229 Alcohol dependence with intoxication, unspecified (principal); Z88.1 Allergy status to other antibiotic agents; Y90.8 Blood alcohol level of 240 mg/100 ml or more
CPT/HCPCS: 36415; 80053; 82553; 83605; 85025; 99283; G0480; J7030

== ENCOUNTER 2020-04-19 15:03 | Emergency (ER) | payer OTHER ==
[~2020-04-19] VITALS: Ht 160 cm; Wt 59.0 kg
== END 2020-04-19 15:46 | disposition left against medical advice (07) ==
LOC: ER 15:03
DX: R39.198 Other difficulties with micturition (principal); Z53.21 Procedure and treatment not carried out due to patient leaving prior to being seen by health care provider

== ENCOUNTER 2020-05-31 19:14 | Observation (INO) | payer OTHER ==
[~2020-05-31] VITALS: Ht 160 cm; Wt 53.5 kg
--- NOTE | 2020-05-31 19:25 | PHYS DOC ---
Past History Past Medical History: Alcoholism, Anxiety Additional Past Medical Histor: ETOH ABUSE Past Surgical History: Other Additional Past Surgical Histo: BREAST IMPLANTS Alcohol Use: Heavy Drug Use: None Adult General HPI HPI Patient is a 49-year-old female presents via EMS for acute alcohol intoxication. Patient reportedly has been drinking at home in the presence of her family heavily today. Patient was acutely intoxicated and EMS was called earlier today, on arrival, patient evaluated and was offered transportation to ER for evaluation and management but she had capacity at that time and deferred. Nonetheless, she continued to drink heavily and has had decreased mentation as a result per family. They became worried again this evening after decreased responsiveness to verbal stimuli and called EMS. On arrival, patient remained hemodynamically stable but obviously acutely intoxicated and decision was made to transport to our facility for evaluation. Family at scene said she has drank approximately x2 1/5ths of rum today, there has been no falls, no trauma, no co ncerning ingestion, no other concerning findings and/or incidents. On arrival, patient is alert and oriented to person only. She is acutely intoxicated, is asymptomatic without any complaints. Review of Systems Review of Systems Fourteen body systems of review of systems have been reviewed. See HPI for pertinent positives and negative responses, other metzger all other systems are negative, non-pertinent or non-contributory Allergies Allergies Allergies Coded Allergies Type Severity Reaction Last Updated Verified amoxicillin Allergy Intermediate rash 04/19/20 Yes ampicillin Allergy Intermediate rash 04/19/20 Yes ciprofloxacin Allergy Intermediate rash 04/19/20 Yes clavulanic acid Allergy Intermediate rash 04/19/20 Yes Physical Exam Physical Exam Constitutional: Pt is oriented to person only. She is alert and responsive to verbal and painful stimuli. Spontaneous eye movements (E4), alert and oriented to person only (V5), withdraws from painful stimuli (M5) = GCS 14 Acutely intoxicated HEENT: Head: Normocephalic and atraumatic. External ears unremarkable, negative trejo sign Conjunctivae and EOM are normal. Pupils are equal, round, and reactive to light. Oropharynx is clear and dry, smells like ROM No hematomas or lacerations or abrasions to face or scalp OP clear, no blood, no malocclusion, dentition intact Nares clear, no nasal septal hematoma Midface stable Neck: C-spine midline nontender, no step-offs Cardiovascular: Normal rate, regular rhythm and normal heart sounds. Pulmonary/Chest: Effort normal and breath sounds normal. No respiratory distress. No wheezes. CTA bilaterally Abdominal: Soft. Bowel sounds are normal. Pt exhibits no distension. There is no tenderness. Musculoskeletal: No bony tenderness to extremities, no deformities, full ROM extremities Chest wall stable Pelvis stable and non-tender No vertebral TTP and spine without stepoffs Neurological: Pt is alert and oriented to person only Moving all extremities willfully, able to wiggle all fingers and toes Sensation grossly intact Skin: Skin is warm and dry. No abrasions, no lacerations Psychiatric: Unable to fully assess due to acute intoxication Current Patient Data Lab Results Laboratory Tests Test 05/31/20 19:30 05/31/20 19:45 Urine Opiates Screen Neg (NEG) Urine Methadone Screen Neg (NEG) Urine Barbiturates Neg (NEG) Urine Phencyclidine Screen Neg (NEG) Urine Amphetamine/Methamphetamine Neg (NEG) Urine Benzodiazepines Screen Neg (NEG) Urine Cocaine Screen Neg (NEG) Urine Cannabinoids Screen Neg (NEG) Urine Ethyl Alcohol Pos (NEG) Sodium Level 145 mmol/L (136-145) Potassium Level 4.5 mmol/L (3.5-5.1) Chloride Level 107 mmol/L (98-107) Carbon Dioxide Level 27 mmol/L (21-32) Anion Gap 11 (6-14) Blood Urea Nitrogen 19 mg/dL (7-20) Creatinine 1.0 mg/dL (0.6-1.0) Estimated GFR (Cockcroft-Gault) 59.2 BUN/Creatinine Ratio 19 (6-20) Glucose Level 99 mg/dL (70-99) Calcium Level 8.4 mg/dL (8.5-10.1) Total Bilirubin 0.1 mg/dL (0.2-1.0) Aspartate Amino Transf (AST/SGOT) 20 U/L (15-37) Alanine Aminotransferase (ALT/SGPT) 23 U/L (14-59) Alkaline Phosphatase 101 U/L (46-116) Creatine Kinase 117 U/L (26-192) Total Protein 7.2 g/dL (6.4-8.2) Albumin 3.8 g/dL (3.4-5.0) Albumin/Globulin Ratio 1.1 (1.0-1.7) Salicylates Level < 2.8 mg/dL (2.8-20.0) Salicylate Last Dose Date 1999 Salicylate Last Dose Time 05/31/20 Acetaminophen Level < 2.0 mcg/mL (10-30) Acetaminophen Last Dose Date 1999 Acetaminophen Last Dose Time 05/31/20 Ethyl Alcohol Level 434 mg/dL (0-10) EKG EKG [] Radiology/Procedures Radiology/Procedures [] Heart Score HEART Score for Chest Pain: HEART Score for Chest Pain Response (Comments) Value History Slighlty/Non-Suspicious 0 Age >45 - < 65 1 Risk Factors 1 or 2 Risk Factors 1 Total 2 Risk Factors: Risk Factors: DM, Current or recent (<one month) smoker, HTN, HLP, family history of CAD, obesity. Risk Scores: Risk Factors: DM, Current or recent (<one month) smoker, HTN, HLP, family history of CAD, obesity. Course & Med Decision Making Course & Med Decision Making Pertinent Labs and Imaging studies reviewed. (See chart for details) Patient acutely intoxicated from ETOH. Despite being hemodynamically stable without any gross electrolyte abnormalities, she is extremely high fall risk, not at baseline mentation due to acute intoxication and is unfit for discharge home to environment where she is likely to continue drinking. I called the hospitalist, Dr. Johnson, who agreed need for admission and accepted patient under his care at [facility] Patient updated on plan of care and she was amenable. Patient's family was contacted and updated on plan of care Patient stabilized prior to ER transport to [facility] for continued o bservation and medical care Dragon Disclaimer Dragon Disclaimer This electronic medical record was generated, in whole or in part, using a voice recognition dictation system. Departure Departure: Impression: Primary Impression: Acute alcohol intoxication Disposition: ADMITTED INPT THIS HOSP Admitting Physician: Jose Johnson Condition: STABLE Referrals: PCP,NO (PCP) HUGO VALENCIA DO May 31, 2020 19:25
[2020-05-31] MEDS ORDERED: IV NORMAL SALINE 1,000ML 1,000 ML IV ONE (19:30)
[2020-05-31 20:04] LABS: BASO % 1 % (0-3); EOS % 0 % (0-3); HEMATOCRIT 46.7 % (36.0-47.0); HEMOGLOBIN 15.4 g/dL (12.0-15.5); LYMPH # 3.2 x10^3/uL (1.0-4.8); LYMPH % 40 % (24-48); MEAN CORPUSCULAR HEMOGLOBIN 31 pg (25-35); MEAN CORPUSCULAR HGB CONC 33 g/dL (31-37); MEAN CORPUSCULAR VOLUME 93 fL (79-100); MONO # 0.2 x10^3/uL (0.0-1.1); MONO % 2 % (0-9); NEUT # 4.7 x10^3uL (1.8-7.7); NEUT % 58 % (31-73); PLATELET COUNT 345 x10^3/uL (140-400); RED BLOOD COUNT 5.03 x10^6/uL (3.50-5.40); RED CELL DISTRIBUTION WIDTH 14.5 % (11.5-14.5); WHITE BLOOD COUNT 8.1 x10^3/uL (4.0-11.0)
[2020-05-31 20:08] LABS: CALCIUM 8.4 mg/dL (8.5-10.1); GFR 59.2; POTASSIUM 4.5 mmol/L (3.5-5.1)
[2020-05-31 20:09] LABS: BARBITURATES NEG (NEG); BENZODIAZEPINES NEG (NEG); CANNABINOIDS NEG (NEG); COCAINE NEG (NEG); METHADONE NEG (NEG); OPIATES NEG (NEG); PHENCYCLIDINE NEG (NEG)
[2020-05-31 20:10] LABS: AMPHETAMINE/METHAMPHETAMINE NEG (NEG)
[2020-05-31 20:14] LABS: ALBUMIN 3.8 g/dL (3.4-5.0); ALBUMIN/GLOBULIN RATIO 1.1 (1.0-1.7); TOTAL BILIRUBIN 0.1 mg/dL (0.2-1.0); TOTAL PROTEIN 7.2 g/dL (6.4-8.2)
[2020-05-31 20:26] LABS: SALIC < 2.8 mg/dL (2.8-20.0)
[2020-05-31 20:31] LABS: ACETAMIN < 2.0 mcg/mL (10-30); ETHANOL 434 mg/dL (0-10)
[2020-05-31 21:14] LABS: BACTERIA,URINE 0 /HPF (0-FEW); BILIRUBIN,URINE NEG (NEG); CLARITY,URINE CLEAR; COLOR,URINE COLORLESS; GLUCOSE,URINE NEG (NEG); NITRITE,URINE NEG (NEG); RBC,URINE 0 /HPF (0-2); UROBILINOGEN,URINE 0.2 mg/dL (0.2 mg/dL); WBC,URINE 0 /HPF (0-4)
--- NOTE | 2020-05-31 22:34 | RAD ---
EXAM: CT HEAD WITHOUT IV CONTRAST CLINICAL HISTORY: UNWITNESSED FALL, HIT ANTERIOR HEAD, ETOH INTOX COMPARISON: 08/19/2018. TECHNIQUE: Routine CT of the head without contrast. PQRS compliance statement - One or more of the following individualized dose reduction techniques wer e utilized for this study: 1. Automated exposure control 2. Adjustment of the mA and/or kV according to patient size 3. Use of iterative reconstruction technique FINDINGS: There is no evidence of hemorrhage, mass or extra-axial fluid collection. Johnston-white differentiation is maintained with no evidence of edema. There is no mass effect or shift of the intracranial structures. The ventricles, basilar cisterns and cortical sulci are normal in size and configuration for the leonardo ents stated age. The cerebellum and brainstem are unremarkable. The calvarium demonstrates no evidence of fracture or focal lesion. Nodular opacification left maxillary sinus. Otherwise normal aeration of the visualized paranasal sin uses and mastoid air cells. The visualized portions of the orbits are normal. IMPRESSION: No evidence for acute intracranial process. Left maxillary sinus disease. EXAM: CT CERVICAL SPINE WITHOUT IV CONTRAST CLINICAL HISTORY: Reason: UNWITNESSED FALL, HIT ANTERIOR HEAD, ETOH INTOX / Spl. Instructions: / His tory: COMPARISON: None available. TECHNIQUE: Helical CT of the cervical spine was performed. Axial, coronal and sagittal reformatted im ages were also performed. PQRS compliance statement - One or more of the following individualized dose reduction techniques wer e utilized for this study: 1. Automated exposure control 2. Adjustment of the mA and/or kV according to patient size 3. Use of iterative reconstruction technique FINDINGS: Examination is limited by significant motion artifact, this is particularly worse at C2-C6 significan tly limiting evaluation for subtle fracture and spondylolisthesis. Within these constraints: No obvio us fracture is identified although small fracture may not be seen. Vertebral body heights are preserv ed. Disc heights are preserved. Within the constraints of motion artifact, no spondylolisthesis. IMPRESSION: Examination is markedly limited from C2-C6 given motion artifact. Within these constraints no definit e acute fracture or spondylolisthesis. However if there is persistent clinical concern, exam can be r epeated and addendum can be placed. Electronically signed by: Thaddeus Estes MD (05/31/2020 10:32 PM) JUAN CARLOS
[2020-05-31 23:49] VITALS: BP 114/75
[2020-05-31] MEDS: ACETAMINOPHEN 325 MG TABLET PO PRN (23:50)
[2020-05-31] MEDS: IV NORMAL SALINE 1,000ML 1,000 ML IV SCH (23:52)
--- NOTE | 2020-06-01 00:49 | NUR ---
The patient, VERNA CHILD, 49 y/o, F admitted by SCOTTY CREWS MD, was given written information regarding hospital policies, unit procedures and contact persons. Valuables were checked and vital signs obtained. PT states she takes no home medications currently. Reviewed with PT her PMH, PSH, SH, FH and medications. Son notified of admission.
[2020-06-01 05:21] VITALS: BP 118/74
[2020-06-01] MEDS: ACETAMINOPHEN 325 MG TABLET PO PRN (06:04)
[2020-06-01] MEDS ORDERED: HALOPERIDOL LACT 5 MG/ML VIAL. IM PRN (08:00)
[2020-06-01] MEDS ORDERED: diphenhydrAMINE 50 MG/ML VIAL IVP PRN (08:00)
[2020-06-01] MEDS ORDERED: cloNIDine HCL 0.1 MG TABLET PO PRN (08:00)
[2020-06-01] MEDS ORDERED: FOLIC ACID 1 MG TABLET PO SCH (09:00)
[2020-06-01] MEDS ORDERED: THIAMINE 100 MG TABLET. PO SCH (09:00)
[2020-06-01] MEDS ORDERED: FLU VACC QS 2020-21(6MOS+)/PF 0.5 ML SYRINGE. VAX IM ONE (09:00)
[2020-06-01] MEDS ORDERED: MULTIVITAMIN with MINERAL TABLET. PO SCH (09:00)
[2020-06-01] MEDS ORDERED: MVI, ADULT NO.4 WITH VIT K 10 ML, THIAMINE INJ 100 MG, FOLIC ACID INJ 1 MG in IV NORMAL... IV SCH (09:00)
[2020-06-01] MEDS ORDERED: ONDANSETRON PF 4 MG/2 ML VIAL. IVP PRN (10:00)
[2020-06-01] MEDS: IV NORMAL SALINE 1,000ML 1,000 ML IV SCH ×2 (10:15→17:00)
[2020-06-01 10:31] VITALS: BP 120/75
[2020-06-01] MEDS ORDERED: KETOROLAC 30 MG/ML VIAL. IVP ONE (11:15)
--- NOTE | 2020-06-01 11:15 | RAD ---
CT HEAD AND C-SPINE WO History: Reason: follow up post fall / Spl. Instructions: / History: Comparison: May 31, 2020 Technique: Noncontrast CT imaging was performed of the head and cervical spine. Coronal and sagittal reconstructions were performed. Exposure: One or more of the following individualized dose reduction techniques were utilized for thi s examination: 1. Automated exposure control 2. Adjustment of the mA and/or kV according to patient size 3. Use of iterative reconstruction technique. Findings: Head CT: No intracranial hemorrhage. No mass effect. No hydrocephalus. Extra-axial spaces are unrema rkable. Imaged orbits are unremarkable. Imaged paranasal sinuses and mastoid air cells are clear. No acute ca lvarial fracture. Cervical spine CT: Slight grade 1 anterolisthesis C7 on T1. Normal vertebral body height. No fracture. Mild multilevel degenerative disc changes most prominent C5-C6 and C6-C7. Facet arthropathy most prom inent C7-T1. No high-grade canal or neuroforaminal narrowing. Left maxillary sinus mucous retention cyst. Impression: Head CT: 1. No acute intracranial abnormality. Cervical spine CT: 1. No acute fracture or subluxation of the cervical spine. 2. Mild cervical spondylosis. Electronically signed by: Edwin Marie DO (06/01/2020 11:13 AM) [id number]
[2020-06-01] MEDS ORDERED: LIDOCAINE (700MG/PATCH) PATCH. TD SCH (13:30)
[2020-06-01] MEDS ORDERED: traMADol 50 MG TABLET PO ONE ×3 (13:30→16:15)
[2020-06-01 13:37] LABS: HEMATOCRIT 36.4 % (36.0-47.0); HEMOGLOBIN 11.9 g/dL (12.0-15.5); RED BLOOD COUNT 3.96 x10^6/uL (3.50-5.40); RED CELL DISTRIBUTION WIDTH 14.2 % (11.5-14.5); WHITE BLOOD COUNT 6.6 x10^3/uL (4.0-11.0)
[2020-06-01 13:42] LABS: CALCIUM 7.6 mg/dL (8.5-10.1); CREATININE 0.8 mg/dL (0.6-1.0); GFR 76.6; POTASSIUM 4.6 mmol/L (3.5-5.1)
[2020-06-01 13:48] LABS: ALBUMIN/GLOBULIN RATIO 1.2 (1.0-1.7); TOTAL BILIRUBIN 0.3 mg/dL (0.2-1.0); TOTAL PROTEIN 5.6 g/dL (6.4-8.2)
--- NOTE | 2020-06-01 14:30 | PN ---
DATE: 06/01/2020 SUBJECTIVE: The patient was admitted yesterday with alcohol intoxication. There was an unwitnessed fall at the Emergency Room and had had a CT scan of the head and cervical spine that was placed within the context of motion that was unremarkable. She continued to complain of pain in the left side of her head and left side of the neck, this morning, she is definitely more awake, alert and moves all her extremities without difficulty. Did complain of headache and we treated her with Toradol this morning as well as Ativan; however, she continued to complain of that, so we did repeat actually CT scan of the head and cervical spine. CT scan of the head showed no intracranial hemorrhage, no mass effect, no hydrocephalus. Extraaxial space is unremarkable. Imaged orbits are unremarkable. Imaged paranasal sinuses and mastoid air cells are clear, no acute calvarial fracture. The CT scan of the cervical spine showed slight grade 1 anterolisthesis of C7-T1. Normal vertebral body heights. No fractures, mild bilateral degenerative disk disease, most prominent at C5-C6 and C6-C7 facet arthropathy, most prominent at C7-T1. No high-grade canal or neural foraminal narrowing, left maxillary sinus mucous retention cyst. OBJECTIVE: GENERAL: On examining her this afternoon, she was sitting up in her bed, in no apparent distress. No pallor, jaundice, cyanosis or thyromegaly. No jugular venous distention or limb edema. VITAL SIGNS: Her heart rate was 88, blood pressure was 120/75, temperature was 98.2, respiratory rate 20, and oxygen saturation was 95%. The rest of clinical exam is grossly intact. PLAN: To repeat all her lab work again and consult Physical and Occupational Therapy and if the blood alcohol level is normalized and she has been up and about without difficulty, she can be discharged home. MUNA BAER MD DR: DOREEN/maryellen JOB#: [id number] / [id number]
--- NOTE | 2020-06-01 14:54 | HP ---
ADMIT DATE: 06/01/2020 HISTORY OF PRESENT ILLNESS: The patient is a 49-year-old female patient, who was brought to the Emergency Room with acute alcohol intoxication. The patient has been drinking at home in the presence of her family heavily today. She was actually intoxicated and EMS was called earlier today. On arrival, the patient was evaluated and was offered transportation to ER for evaluation and management, but she had the capacity at that time and deferred. Nonetheless, she continued to drink heavily and has had decreased mentation. As a result, the family, they became worried again and on the evening of admission after decreased responsiveness to verbal stimuli and called EMS and on arrival, the patient remained hemodynamically stable, but obviously acutely intoxicated and decision was made to transfer her to our facility for evaluation. Family at the scene said she has drank approximately ____ of rum today. There has been no falls, no trauma, no concerning ____, no other concerning findings or other incident. On arrival, the patient is alert, oriented to person only. She is acutely intoxicated, is asymptomatic without any complaints. She was extensively evaluated and has had lab work done. Her CBC and chemistry was unremarkable. Her drug screen showed that her blood alcohol level was 434, but was negative for all other drugs. Urinalysis was unremarkable and urine test was negative. She did have a CT scan of the head and cervical spine showed that the patient has no evidence of hemorrhage, mass, or extraaxial fluid collection. Galan-white differentiation is maintained with no evidence of edema. There is no mass effect or shift of the intracranial structure. The ventricles, basilar cisterns and cortical sulci are normal in size and configuration for the patient's stated age. The cerebellum and brainstem are unremarkable. The calvarium demonstrates no evidence of fracture or focal lesions, nodular opacification, left maxillary sinus; otherwise, normal aeration of the visualized paranasal sinuses and mastoid air cells. The visualized portions of the orbits are normal. Examination of the cervical spine is limited by significant motion artifact. This is particularly worse at C3-C6, significantly limiting evaluation of the subtle fracture and spondylolisthesis. Within these constraints, no obvious fracture identified, although small fractures may not be seen. Vertebral body heights are preserved. Disk heights are preserved within the constraints of motion artifact, no spondylolisthesis. The patient was admitted with diagnosis of alcohol intoxication. PAST MEDICAL HISTORY: Significant for depression and anxiety. History of alcoholism, for which she was admitted to [facility] in [place]. At that time, she was started on Antabuse medication and she has a history also of acute rhabdomyolysis for which she was admitted at that time to [facility]. PAST SURGICAL HISTORY: Significant for tonsillectomy, skin cancer resection from her right forehead and at that time, she went into septic shock. She has also . ALLERGIES: She is allergic to AMPICILLIN. FAMILY HISTORY: She has 1 older sister that is healthy. Her father at age of 66 because of esophageal cancer and has heart disease. Mother is still alive and has ulcerative colitis. SOCIAL HISTORY: She is single. She has a 16-year-old son. She does not smoke. She is not very clear that she is really drinking every day, but apparently she has drunk a large amount of ____ rum. MEDICATIONS: She is on Trintellix 20 mg once a day. She is also allowed Xanax 0.25 mg 20 tablets by [facility] according to her. PHYSICAL EXAMINATION: GENERAL: On arrival to the Emergency Room, the patient was clearly intoxicated and alert to self only. There was no pallor, jaundice, cyanosis or thyromegaly. No jugular venous distention. No limb edema. VITAL SIGNS: Her heart rate was 85, blood pressure was 128/86, temperature was 98.1, respiratory rate was 18 and oxygen saturation was 95%. HEAD, EYES, EARS, NOSE AND THROAT: Normocephalic, atraumatic. NECK: Supple. HEART: Showed normal first and second heart sounds. No gallop, rub or murmur. CHEST: Clear to auscultation. No crepitation or rhonchi. ABDOMEN: Distended, soft, nontender. No guarding or rigidity. No organomegaly. All hernial orifice intact. Bowel sounds normal. NEUROLOGIC: She is awake, alert, responding appropriately. All cranial nerves intact. EXTREMITIES: She moves extremities without difficulty. LABORATORY DATA: Her lab work on arrival showed a white cell count of 8100, hemoglobin 15, hematocrit 46, MCV 93, and platelet count 345,000 with normal manual differential. Her serum sodium was 145, potassium 4.5, chloride 107, bicarbonate 27, anion gap of 11, BUN 19, creatinine 1, estimated GFR was 59 mL per minute. Her glucose was 99, calcium was 8.5. Total bilirubin, AST, ALT, alkaline phosphatase were normal. CK was 117, total protein 7.2, albumin was 3.8. Urinalysis essentially unremarkable. Urine test was negative and urine drug screen showed that her blood alcohol level was 434. She was negative for opiates, methadone, barbiturates, phencyclidine, amphetamine, methamphetamine, benzodiazepine, cocaine, cannabinoids. Her CT scan of the head and cervical spine showed the patient has no evidence for acute intracranial process, left axillary sinus disease and CT scan of the cervical spine shows the examination is limited by significant motion artifact. This is particularly worse at C3-C6, significantly limiting evaluation for subtle fracture and spondylolisthesis. Within these constraints, no obvious fracture identified, although small fractures may not be seen. Vertebral body heights are preserved. Disk heights are preserved within the constraints of motion artifact. No spondylolisthesis. ASSESSMENT AND PLAN: The patient was admitted with blood alcohol intoxication. She will be started on alcohol withdrawal protocol. She apparently had an unwitnessed fall, suffered while in the ER. The patient was attempting to ambulate and fill losing peripheral IV access. Garcia catheter remains in place ____ and other trash can or cabinets in the room complaining of anterior hip pain without any obvious signs of trauma or laceration. She had a benign neurological examination nonetheless, given acute intoxication and an unwitnessed fall. Decision was made to pursue CT scan of the head and neck imaging to rule out any serious abnormalities and the first CT scan of the head was done in the Emergency Room for that complaint. She was continued on alcohol withdrawal protocol. She did receive a banana bag on admission as well a liter of normal saline. MUNA BAER MD DR: DOREEN/maryellen JOB#: [id number] / [id number]
[2020-06-01 15:20] VITALS: BP_SYST 122; BP_SYST 126; BP_DIAS 83
--- NOTE | 2020-06-01 17:30 | NUR ---
Discharge Note- Patient provided with discharge education and instructions to include medications, follow-up with personal physician, and symptoms worsening. Patient verbalized understanding and was escorted to front entrance via wheelchair with all belongings; she departed via personal vehicle with family member.
[2020-06-01] MEDS ORDERED: PATCH REMOVAL. MC SCH (21:00)
== END 2020-06-01 17:30 | disposition home or self-care (01) ==
LOC: ER 19:14 → OBSVTOIN 21:23 → INTOOBSV 21:23 → 1 SOUTH 21:23 → OBSVTOIN 06-01 08:58 → INTOOBSV 06-01 08:58
PROVIDERS: ADMIT Hospitalist; ATTEND Internal Medicine
DX: F10.229 Alcohol dependence with intoxication, unspecified (principal); F41.9 Anxiety disorder, unspecified; F32.9 Major depressive disorder, single episode, unspecified; Z90.49 Acquired absence of other specified parts of digestive tract; Z85.828 Personal history of other malignant neoplasm of skin; Z98.82 Breast implant status; Z23 Encounter for immunization; Y90.8 Blood alcohol level of 240 mg/100 ml or more
CPT/HCPCS: 36415; 51702; 70450; 72125; 80053; 80307; 80329; 81001; 81025; 82550; 85025; 85027; 90471; 90686; 96361; 96374; 96375; 96376; 97161; 97165; 97530; 99284; G0378; G0480; J1885; J2060; J2405; J7030; 96360; G0379; 99285-25

== ENCOUNTER 2020-06-06 00:25 | Observation (INO) | payer OTHER ==
[~2020-06-06] VITALS: Ht 158.8 cm; Wt 57.2 kg
--- NOTE | 2020-06-06 00:35 | PHYS DOC ---
Past History Past Medical History: Alcoholism, Anxiety Additional Past Medical Histor: ETOH ABUSE Past Surgical History: Other Additional Past Surgical Histo: BREAST IMPLANTS Alcohol Use: Heavy Drug Use: None Adult General HPI HPI Patient is a 49-year-old female who presents via EMS for acute intoxication. Patient was recently discharged from our facility for similar diagnosis after drinking excessive rum. Patient was hospitalized and discharged home with lorazepam and close PCP follow-up. Patient subsequently followed up with PCP and was prescribed Xanax at that time. Patient had been at home and "drinking all day" per family members. There were no witnessed falls nor trauma but family members were concerned given excessive level of intoxication given amount patient had drank prompting them to call EMS for evaluation and transport to our facility. On arrival, patient had slight hypotensive reading of approximately 100s/50s. She was alert, oriented x3 but acutely intoxicated. Admits drinking 1-2 1/5ths of rum at home today, also admits to taking too many prescribed benzodiazepine medications. Patient unsure how much of each medication she took today but admits "I know I took too much ". Patient denies any homicidal nor suicidal intent but admits relationship discord with her son who she states is verbally mean to her and prompts her to drink. KTRA reviewed and shows that patient had x10 tablets 1 mg lorazepam dispensed 06/01/2020 on hospital discharge and subsequently had x30 Xanax 0.5 mg tablets prescribed by primary care physician 06/02/2020. Count at home by EMS showed 5 remaining Ativan and 20 remaining Xanax. Review of Systems Review of Systems Fourteen body systems of review of systems have been reviewed. See HPI for pertinent positives and negative responses, other metzger all other systems are negative, non-pertinent or non-contributory Allergies Allergies Allergies Coded Allergies Type Severity Reaction Last Updated Verified amoxicillin Allergy Intermediate rash 04/19/20 Yes ampicillin Allergy Intermediate rash 04/19/20 Yes ciprofloxacin Allergy Intermediate rash 04/19/20 Yes clavulanic acid Allergy Intermediate rash 04/19/20 Yes Physical Exam Physical Exam Constitutional: Pt is oriented to person, place, and time. Pt appears acutely intoxicated HEENT: Head: Normocephalic and atraumatic. TMs clear, no hemotympanum Conjunctivae and EOM are normal. Pupils are equal, round, and reactive to light. Oropharynx is clear and moist. No hematomas or lacerations or abrasions to face or scalp OP clear, no blood, no malocclusion, dentition intact Nares clear, no nasal septal hematoma Midface stable Neck: C-spine midline nontender, no step-offs Cardiovascular: Normal rate, regular rhythm and normal heart sounds. Pulmonary/Chest: Effort normal and breath sounds normal. No respiratory distress. No wheezes. CTA bilaterally Abdominal: Soft. Bowel sounds are normal. Pt exhibits no distension. There is no tenderness. Musculoskeletal: No bony tenderness to extremities, no deformities, full ROM extremities Patient does have bruise x2 to left deltoid and left upper extremity which she reports from prior falls Chest wall stable Pelvis stable and non-tender No vertebral TTP and spine without stepoffs Neurological: Pt is alert and oriented to person, place, and time. Moving all extremities willfully, able to wiggle all fingers and toes Alert and oriented x 3 Sensation grossly intact Gait unstable Skin: Skin is warm and dry. No abrasions, no lacerations Psychiatric: Unable to fully assess due to level of intoxication Current Patient Data Vital Signs Vital Signs Date Time Temp Pulse Resp B/P (MAP) Pulse Ox O2 Delivery O2 Flow Rate FiO2 06/06/20 00:25 98.6 98 16 102/63 (76) 98 Room Air Lab Results Laboratory Tests Test 06/06/20 00:37 White Blood Count 5.3 x10^3/uL Red Blood Count 4.44 x10^6/uL Hemoglobin 13.6 g/dL Hematocrit 40.6 % Mean Corpuscular Volume 92 fL Mean Corpuscular Hemoglobin 31 pg Mean Corpuscular Hemoglobin Concent 33 g/dL Red Cell Distribution Width 14.4 % Platelet Count 331 x10^3/uL Neutrophils (%) (Auto) 52 % Lymphocytes (%) (Auto) 44 % Monocytes (%) (Auto) 3 % Eosinophils (%) (Auto) 1 % Basophils (%) (Auto) 0 % Neutrophils # (Auto) 2.8 x10^3uL Lymphocytes # (Auto) 2.4 x10^3/uL Monocytes # (Auto) 0.2 x10^3/uL Eosinophils # (Auto) 0.0 x10^3/uL Basophils # (Auto) 0.0 x10^3/uL Sodium Level 137 mmol/L Potassium Level 3.8 mmol/L Chloride Level 100 mmol/L Carbon Dioxide Level 24 mmol/L Anion Gap 13 Blood Urea Nitrogen 17 mg/dL Creatinine 1.4 mg/dL Estimated GFR (Cockcroft-Gault) 40.1 BUN/Creatinine Ratio 12 Glucose Level 99 mg/dL Calcium Level 7.6 mg/dL Total Bilirubin 0.1 mg/dL Aspartate Amino Transf (AST/SGOT) 16 U/L Alanine Aminotransferase (ALT/SGPT) 21 U/L Alkaline Phosphatase 94 U/L Total Protein 6.8 g/dL Albumin 3.5 g/dL Albumin/Globulin Ratio 1.1 Salicylates Level < 2.8 mg/dL Salicylate Last Dose Date Unknown Salicylate Last Dose Time Unknown Acetaminophen Level < 2.0 mcg/mL Acetaminophen Last Dose Date Unknown Acetaminophen Last Dose Time Unknown Ethyl Alcohol Level 404 mg/dL EKG EKG EKG ordered and interpreted by myself at 003 5 hours as sinus rhythm at 97 bpm, unremarkable intervals, no axis deviation, no acute ischemic findings, no STEMI Radiology/Procedures Radiology/Procedures [] Heart Score HEART Score for Chest Pain: HEART Score for Chest Pain Response (Comments) Value History Slighlty/Non-Suspicious 0 Age >45 - < 65 1 Risk Factors 1 or 2 Risk Factors 1 Total 2 Risk Factors: Risk Factors: DM, Current or recent (<one month) smoker, HTN, HLP, family history of CAD, obesity. Risk Scores: Risk Factors: DM, Current or recent (<one month) smoker, HTN, HLP, family history of CAD, obesity. Course & Med Decision Making Course & Med Decision Making Pertinent Labs and Imaging studies reviewed. (See chart for details) I discussed diagnosis of acute alcohol intoxication in setting of benzodiazepine use in addition to acute kidney injury likely from alcohol abuse Patient tolerated ER intervention well; however, patient still acutely intoxicated. Although she is alert and oriented x3, she is still extremely unsteady and unable to safely care for self at home given lack of family support and assistance while intoxicated Unsafe to disposition home; at minimum plan admission for continued fluid rehydration and observation while she metabolizes both alcohol and benzodiazepines with repeat gait assessment and home safety evaluation prior to departure Dragon Disclaimer Dragon Disclaimer This electronic medical record was generated, in whole or in part, using a voice recognition dictation system. Departure Departure: Impression: Primary Impression: EtOH dependence Additional Impressions: Benzodiazepine abuse SHANA (acute kidney injury) Disposition: ADMITTED INPT THIS HOSP Admitting Physician: Terese Dougherty Condition: STABLE Referrals: PCP,NO (PCP) Scripts No Active Prescriptions or Reported Meds Problem Qualifiers HUGO VALENCIA DO Jun 06, 2020 00:35
--- NOTE | 2020-06-06 00:42 | EKG ---
[address] [address] Test Date: 2020-06-06 Test Time: 00:29:47 Pat Name: VERNA CHILD Department: Room: Gender: F Vice President Research: : 1970 Requested By: HUGO VALENCIA Order Number: [id number] Reading MD: Chris Edwards Measurements Intervals [place] Rate: 97 P: 40 OK: 126 QRS: 20 QRSD: 86 T: 30 QT: 338 QTc: 433 Interpretive Statements SINUS RHYTHM NORMAL ECG RI6.02 Compared to ECG 08/19/2018 19:02:06 No significant changes Electronically Signed On 06-07-2020 13:33:31 HEEL COMPRESSOR by Chris Edwards
[2020-06-06 00:58] LABS: BASO % 0 % (0-3); EOS % 1 % (0-3); HEMATOCRIT 40.6 % (36.0-47.0); HEMOGLOBIN 13.6 g/dL (12.0-15.5); LYMPH # 2.4 x10^3/uL (1.0-4.8); LYMPH % 44 % (24-48); MEAN CORPUSCULAR HEMOGLOBIN 31 pg (25-35); MEAN CORPUSCULAR HGB CONC 33 g/dL (31-37); MEAN CORPUSCULAR VOLUME 92 fL (79-100); MONO # 0.2 x10^3/uL (0.0-1.1); MONO % 3 % (0-9); NEUT # 2.8 x10^3uL (1.8-7.7); NEUT % 52 % (31-73); PLATELET COUNT 331 x10^3/uL (140-400); RED BLOOD COUNT 4.44 x10^6/uL (3.50-5.40); RED CELL DISTRIBUTION WIDTH 14.4 % (11.5-14.5); WHITE BLOOD COUNT 5.3 x10^3/uL (4.0-11.0)
[2020-06-06 01:04] LABS: CALCIUM 7.6 mg/dL (8.5-10.1); CREATININE 1.4 mg/dL (0.6-1.0); GFR 40.1; POTASSIUM 3.8 mmol/L (3.5-5.1)
[2020-06-06 01:10] LABS: ALBUMIN 3.5 g/dL (3.4-5.0); ALBUMIN/GLOBULIN RATIO 1.1 (1.0-1.7); TOTAL BILIRUBIN 0.1 mg/dL (0.2-1.0); TOTAL PROTEIN 6.8 g/dL (6.4-8.2)
[2020-06-06 01:12] LABS: SALIC < 2.8 mg/dL (2.8-20.0)
[2020-06-06 01:14] LABS: ACETAMIN < 2.0 mcg/mL (10-30); ETHANOL 404 mg/dL (0-10)
[2020-06-06] MEDS ORDERED: ACETAMINOPHEN 325 MG TABLET PO PRN (01:45)
[2020-06-06] MEDS ORDERED: MULTIVITAMIN with MINERAL TABLET. PO ONE (02:00)
[2020-06-06] MEDS ORDERED: FOLIC ACID 1 MG TABLET PO ONE (02:00)
[2020-06-06] MEDS ORDERED: THIAMINE 100 MG TABLET. PO ONE (02:00)
[2020-06-06] MEDS: IV NORMAL SALINE 1,000ML 1,000 ML IV SCH ×2 (02:13→10:00)
[2020-06-06 02:39] VITALS: BP 89/55
[2020-06-06] MEDS ORDERED: LORazepam 1 MG TABLET PO PRN ×2 (03:15)
[2020-06-06] MEDS ORDERED: diphenhydrAMINE 50 MG/ML VIAL IVP PRN (03:15)
[2020-06-06] MEDS ORDERED: chlordiazePOXIDE HCL 25 MG CAPSULE PO PRN ×2 (03:15)
[2020-06-06] MEDS ORDERED: HALOPERIDOL LACT 5 MG/ML VIAL. IM PRN (03:15)
[2020-06-06 05:03] VITALS: BP 99/64
[2020-06-06 10:23] VITALS: BP 109/69
[2020-06-06 14:52] LABS: CALCIUM 7.4 mg/dL (8.5-10.1); CREATININE 0.9 mg/dL (0.6-1.0); GFR 66.8; POTASSIUM 3.8 mmol/L (3.5-5.1)
[2020-06-06 14:59] LABS: ALBUMIN 2.9 g/dL (3.4-5.0); ALBUMIN/GLOBULIN RATIO 1.2 (1.0-1.7); TOTAL BILIRUBIN 0.2 mg/dL (0.2-1.0); TOTAL PROTEIN 5.3 g/dL (6.4-8.2)
[2020-06-06 15:00] VITALS: BP 113/79
--- NOTE | 2020-06-06 15:58 | HP ---
ADMIT DATE: 06/06/2020 HISTORY OF PRESENT ILLNESS: The patient is a 49-year-old female patient, who was brought to the Emergency Room via EMS for acute intoxication. The patient was recently discharged from our facility for similar presentation after taking excessive rum. She was hospitalized and discharged home with lorazepam and close primary care physician followup. The patient subsequently followed her primary care physician, was prescribed Xanax at that time. The patient had been at home and drinking all day per family members. There were no witnessed falls nor trauma, but the family members were concerned given excessive level of intoxication, given the amount the patient had drank prompted them to call EMS for evaluation and transport to our facility. On arrival, the patient was slightly hypertensive, reading was approximately 100/50. She was alert, oriented x 3, but acutely intoxicated, admits drinking 1 to ____ of rum at home today. She also admits to taking too many prescribed benzodiazepine medication. The patient unsure how much of each medication she took, but admits that I know I took too much. She denied any homicidal or suicidal ideation or attempts, but admits to the relationship discord with her son who she states is verbally mean to her and prompt her to drink. ____ reviewed and showed that the patient had 10 tablets 1 mg lorazepam prescribed and dispensed on 06/01/2020 on hospital discharge and subsequently had 30 Xanax 0.5 mg tablets prescribed by primary care physician on 06/02/2020 found at home by EMS showed 5 remaining Ativan and 20 remaining Xanax. She was extensively investigated in the Emergency Room and her chemistry and blood count were normal. Her drug screen showed her blood alcohol level was 404 mg/dL and the patient was admitted for alcohol intoxication as well as benzodiazepine abuse and mild acute kidney injury. PAST MEDICAL HISTORY: Significant for depression, anxiety, history of alcoholism for which she was admitted to [facility] in [place]. At that time, she was started on Antabuse medication and she has history also of acute rhabdomyolysis, which she was admitted at that time to [facility]. PAST SURGICAL HISTORY: Significant for tonsillectomy, skin cancer resection from her right forehead. At that time, she went into septic shock. She has also . ALLERGIES: She is allergic to AMPICILLIN. FAMILY HISTORY: She has 1 older sister who is healthy. Her father at age of 66 because of esophageal cancer and has heart disease. Mother is still alive and has ulcerative colitis. SOCIAL HISTORY: She is single, has a 16-year-old son. She does not smoke. She is not very clear that she is really drinking every day, but apparently she drinks a large amount of rum. MEDICATIONS: She is currently on following medications: She is on Trintellix 20 mg once a day. She is also allowed 0.25 mg 20 tablets per [facility] according to her, although she apparently getting it from primary care physician also. REVIEW OF SYSTEMS: As per history of present illness. PHYSICAL EXAMINATION: GENERAL: On arrival, the patient was intoxicated, but there was no pallor, jaundice, cyanosis or thyromegaly. No jugular venous distention. No limb edema. VITAL SIGNS: Her heart rate was 98, blood pressure was 102/63, temperature was 98.6, respiratory rate was 16, and oxygen saturation was 98%. HEAD, EYES, EARS, NOSE AND THROAT: Showed normocephalic, atraumatic. NECK: Supple. HEART: Showed normal first and second heart sounds. No gallop, rub or murmur. CHEST: Clear to auscultation. No crepitation or rhonchi. ABDOMEN: Distended, soft, nontender. NEUROLOGIC: She was awake, alert, oriented to time, place and person. EXTREMITIES: She moves all extremities, wilfully able to wiggle all fingers and toes. Sensations are grossly intact. Her gait is stable. SKIN: Warm and dry with no evidence of any abrasions. LABORATORY DATA: While in the Emergency Room, she has had lab work done, which showed a white cell count 5300, hemoglobin 13.6, hematocrit 40, MCV 92, and platelet count of 331,000. Her chemistry showed a serum sodium 137, potassium 3.8, chloride 100, bicarbonate 24, anion gap of 13, BUN 17, creatinine 1.4, estimated GFR was 40 mL per minute, her glucose was 99, calcium was 7.6. Total bilirubin, AST, ALT, alkaline phosphatase were normal. Total protein 6.8, albumin was 3.5. Her toxic screen showed that her blood alcohol level was high at 404. ASSESSMENT AND PLAN: The patient was admitted with alcohol intoxication, benzodiazepine abuse and acute kidney injury. We will continue with alcohol withdrawal protocol. Continue with IV fluid. We will monitor her lab work, particularly her CK and kidney function. MUNA BAER MD DR: DOREEN/maryellen JOB#: [id number] / [id number]
--- NOTE | 2020-06-06 18:59 | DS ---
DATE OF DISCHARGE: 06/06/2020 HOSPITAL COURSE: The patient is a 49-year-old female patient who yet again came with alcohol intoxication and Ativan abuse. I gave her actually 10 tablets of 1 mg strength of Ativan for alcohol withdrawal in a tapering fashion on 06/01/2020, on 06/02 she went to her primary care physician who prescribed her 30 tablets of Xanax 0.5 mg strength and apparently the EMS counted tablets remaining and there were only 5 remaining Ativan and 20 remaining Xanax. She was basically admitted with alcohol intoxication and acute kidney injury. Her blood alcohol level was 404. Her creatinine was slightly elevated at 1.4. She was started on IV fluid and alcohol withdrawal protocol. Today, she is awake, alert, asking for more and more Ativan, but otherwise she is hemodynamically stable. PHYSICAL EXAMINATION: GENERAL: On examining her, there was no pallor, jaundice, cyanosis or thyromegaly. No jugular venous distention. No limb edema. VITAL SIGNS: Her heart rate was 98, blood pressure 113/79, temperature was 98.2, respiratory rate was 16, and her oxygen saturation was 91% on room air. HEAD, EYES, EARS, NOSE AND THROAT: Showed normocephalic, atraumatic. NECK: Supple. HEART: Showed normal first and second heart sounds. No gallop, rub or murmur. CHEST: Clear to auscultation. No crepitation or rhonchi. ABDOMEN: Distended, soft, nontender. NEUROLOGIC: She is awake, alert, responding appropriately. All cranial nerves intact. EXTREMITIES: She moves extremities without difficulty. LABORATORY DATA: This afternoon showed a serum sodium 136, potassium 3.8, chloride 106, bicarbonate 21, anion gap of 11, BUN 21, creatinine 0.9, estimated GFR was 66 mL per minute. Her glucose 144, calcium was 7.4. Total bilirubin, AST, ALT, alkaline phosphatase were normal. Total protein 5.3, albumin was 2.9. Her blood alcohol level was less than 10. DISCHARGE MEDICATIONS: The patient was discharged home. She already has enough Ativan and Xanax for alcohol withdrawal. FINAL DISCHARGE DIAGNOSES: 1. Alcoholism and alcohol intoxication. 2. Acute kidney injury, resolved. 3. Anxiety and depression. AHMED M. KEYUR, MD DR: DOREEN/maryellen JOB#: [id number] / [id number]
== END 2020-06-06 15:40 | disposition home or self-care (01) ==
LOC: ER 00:25 → INTOOBSV 01:42 → 1 SOUTH 01:42
PROVIDERS: ADMIT Internal Medicine; ATTEND Internal Medicine
DX: N17.9 Acute kidney failure, unspecified (principal); F10.129 Alcohol abuse with intoxication, unspecified; F41.9 Anxiety disorder, unspecified; F32.9 Major depressive disorder, single episode, unspecified; F13.10 Sedative, hypnotic or anxiolytic abuse, uncomplicated; Z98.890 Other specified postprocedural states; Z98.891 History of uterine scar from previous surgery; Z98.82 Breast implant status; Z85.828 Personal history of other malignant neoplasm of skin; Y90.8 Blood alcohol level of 240 mg/100 ml or more
CPT/HCPCS: 36415; 80053; 80329; 82550; 85025; 93005; 96361; 96374; 96376; 99284; G0378; G0480; J2060; J7030; G0379

== ENCOUNTER 2020-06-09 07:02 | Emergency (ER) | payer OTHER ==
[~2020-06-09] VITALS: Ht 157.5 cm; Wt 57.2 kg
[2020-06-09] MEDS ORDERED: FOLIC ACID 1 MG TABLET PO ONE (07:15)
[2020-06-09] MEDS ORDERED: IV NORMAL SALINE 1,000ML 1,000 ML IV SCH (07:15)
[2020-06-09] MEDS ORDERED: THIAMINE 100 MG TABLET. PO ONE (07:15)
--- NOTE | 2020-06-09 07:19 | PHYS DOC ---
Past History Past Medical History: Alcoholism, Anxiety Additional Past Medical Histor: ETOH ABUSE Past Surgical History: Other Additional Past Surgical Histo: BREAST IMPLANTS Alcohol Use: Heavy Drug Use: None Adult General Chief Complaint Chief Complaint: ALCOHOL INTOXICATION HPI HPI Patient is a 49-year-old female presenting via EMS for acute alcohol intoxication. This is patient's third visit to our facility in past 8 days for similar presenting symptoms. Was reportedly found acutely intoxicated in her car attempting to drive at local [employer]. EMS was subsequently called given level of intoxication per bystanders. On arrival to our facility, patient repo rts drinking "a lot" of vodka. Admits she continues to drink excessively given her relationship discord with her son. States she continues to live at home with mother and son but verbal altercation led to her drinking excessively yesterday evening. States she took recently prescribed Xanax but "that was a while ago, I took it early yesterday afternoon ". Denies any other concerning ingestions. Does admit to x1 fall while at [employer] station, states she hit her head but cannot really remember the entirety of the fall. She is unsure if she had any prodromal symptoms. Otherwise denies COVID-19 contact, fever, chest pain, shortness of breath, cough, abdominal pain, changes in bladder or bowel function, incontinence, motor or sensory function changes, no neurologic deficits. Denies homicidal and suicidal ideation but admits ongoing depressed mood Review of Systems Review of Systems Fourteen body systems of review of systems have been reviewed. See HPI for pertinent positives and negative responses, other metzger all other systems are negative, non-pertinent or non-contributory Allergies Allergies Allergies Coded Allergies Type Severity Reaction Last Updated Verified amoxicillin Allergy Intermediate rash 04/19/20 Yes ampicillin Allergy Intermediate rash 04/19/20 Yes ciprofloxacin Allergy Intermediate rash 04/19/20 Yes clavulanic acid Allergy Intermediate rash 04/19/20 Yes Physical Exam Physical Exam Constitutional: Pt is oriented to person, place, and time. Pt appears well-developed and well- nourished. Acutely intoxicated on arrival HEENT: Head: Normocephalic and atraumatic. TMs clear, no hemotympanum Conjunctivae and EOM are normal. Right pupil is proximately 1 mm larger than left, both are round, and reactive to light. Oropharynx is clear and moist. Smells of alcohol No hematomas or lacerations or abrasions to face or scalp OP clear, no blood, no malocclusion, dentition intact Nares clear, no nasal septal hematoma Midface stable Neck: C-spine midline nontender, no step-offs Cardiovascular: Normal rate, regular rhythm and normal heart sounds. Pulmonary/Chest: Effort normal and breath sounds normal. No respiratory distress. No wheezes. CTA bilaterally Abdominal: Soft. Bowel sounds are normal. Pt exhibits no distension. There is no tenderness. Musculoskeletal: No bony tenderness to extremities, no deformities, full ROM extremities Chest wall stable Pelvis stable and non-tender No vertebral TTP and spine without stepoffs Neurological: Pt is alert and oriented to person, place, and time. Moving all extremities willfully, able to wiggle all fingers and toes Alert and oriented x 3 Sensation grossly intact Skin: Skin is warm and dry. No abrasions, no lacerations. Patient has bruises on various extremities in various stages of healing. States " some are from falls, others are from previous IVs" Psychiatric: Behavior is appropriate for situation Current Patient Data Vital Signs Vital Signs Date Time Temp Pulse Resp B/P (MAP) Pulse Ox O2 Delivery O2 Flow Rate FiO2 06/09/20 07:05 98.1 86 16 93/58 (70) 95 Room Air Lab Results Laboratory Tests Test 06/09/20 07:25 Sodium Level 143 mmol/L Potassium Level 4.3 mmol/L Chloride Level 105 mmol/L Carbon Dioxide Level 30 mmol/L Anion Gap 8 Blood Urea Nitrogen 16 mg/dL Creatinine 0.8 mg/dL Estimated GFR (Cockcroft-Gault) 76.6 BUN/Creatinine Ratio 20 Glucose Level 95 mg/dL Calcium Level 7.9 mg/dL Total Bilirubin < 0.1 mg/dL Aspartate Amino Transf (AST/SGOT) 21 U/L Alanine Aminotransferase (ALT/SGPT) 23 U/L Alkaline Phosphatase 89 U/L Troponin I Quantitative < 0.017 ng/mL Total Protein 6.4 g/dL Albumin 3.3 g/dL Albumin/Globulin Ratio 1.1 Salicylates Level < 2.8 mg/dL Salicylate Last Dose Date Unknown Salicylate Last Dose Time Unknown Acetaminophen Level < 2.0 mcg/mL Acetaminophen Last Dose Date Unknown Acetaminophen Last Dose Time Unknown Ethyl Alcohol Level 332 mg/dL Current Medications Medications (Trade) Dose Ordered Sig/Jose Route PRN Reason Start Time Stop Time Status Last Admin Dose Admin Sodium Chloride 1,000 ml @ 1,000 mls/hr Q1H IV 06/09/20 07:15 06/09/20 08:14 DC 06/09/20 07:15 Folic Acid (Folic Acid) 1 mg 1X ONCE PO 06/09/20 07:15 06/09/20 07:22 DC 06/09/20 07:54 Thiamine HCl (Vitamin B-1) 100 mg 1X ONCE PO 06/09/20 07:15 06/09/20 07:22 DC 06/09/20 07:54 Multivitamins/ Calcium (Thera-M Plus) 1 tab 1X ONCE PO 06/09/20 07:22 06/09/20 07:23 DC 06/09/20 07:54 EKG EKG EKG ordered and interpreted by myself at 0748 hrs. as sinus rhythm at 80 bpm, unremarkable intervals, no axis deviation, no acute ischemic findings, no STEMI Radiology/Procedures Radiology/Procedures CT brain without contrast. HISTORY: Alcohol abuse, fall CT scan of brain was done without contrast. Sinuses are clear. A skull fracture is not identified. Mastoids are normally aerated. There is no intracranial hemorrhage or subdural hematoma. There is no mass or shift of the midline. Ventricles are normal in size. An acute CVA is not identified. IMPRESSION: 1. No intracranial hemorrhage or acute finding noted. PQRS Compliance Statement: One or more of the following individualized dose reduction techniques were utilized for this examination: 1. Automated exposure control 2. Adjustment of the mA and/or kV according to patient size 3. Use of iterative reconstruction technique Electronically signed by: Mina Rodriguez MD (06/09/2020 7:50 AM) [id number] Heart Score HEART Score for Chest Pain: HEART Score for Chest Pain Response (Comments) Value History Slighlty/Non-Suspicious 0 ECG Normal 0 Age >45 - < 65 1 Risk Factors 1 or 2 Risk Factors 1 Troponin < Normal Limit 0 Total 2 Risk Factors: Risk Factors: DM, Current or recent (<one month) smoker, HTN, HLP, family history of CAD, obesity. Risk Scores: Risk Factors: DM, Current or recent (<one month) smoker, HTN, HLP, family hi story of CAD, obesity. Course & Med Decision Making Course & Med Decision Making Discussed with the patient all findings and diagnostic testing. I discussed most likely diagnosis of acute alcohol intoxication. Patient responded to ER intervention that was provided, was clinically sober, hemodynamically stable and ambulatory at time of departure. I stressed need for close outpatient follow-up to review today's ER visit. Strict return precautions were also discussed at length with good understanding by patient. Patient voiced understanding and agreement with the plan. Patient knows to come back for repeat evaluation if concerning signs or symptoms present prior to outpatient follow-up. Dragon Disclaimer Dragon Disclaimer This electronic medical record was generated, in whole or in part, using a voice recognition dictation system. Departure Departure: Impression: Primary Impression: Alcohol intoxication delirium with moderate or severe use disorder Disposition: 01 DC HOME SELF CARE/HOMELESS Condition: IMPROVED Referrals: PCPDARIUSZ (PCP) Patient Instructions: Alcohol Intoxication, Alcohol Problems Scripts No Active Prescriptions or Reported Meds HUGO VALENCIA DO Jun 09, 2020 07:19
[2020-06-09] MEDS ORDERED: MULTIVITAMIN with MINERAL TABLET. PO ONE (07:22)
--- NOTE | 2020-06-09 07:48 | EKG ---
[address] [address] Test Date: 2020-06-09 Test Time: 07:39:28 Pat Name: VERNA CHILD Department: Room: Gender: F Assistant Technician: JESSIKA : 1970 Requested By: HUGO VALENCIA Order Number: [id number] Reading MD: Measurements Intervals [place] Rate: 80 P: 45 VA: 122 QRS: 56 QRSD: 84 T: 68 QT: 368 QTc: 428 Interpretive Statements SINUS RHYTHM NORMAL ECG RI6.02 No previous ECG available for comparison
--- NOTE | 2020-06-09 07:53 | RAD ---
CT brain without contrast. HISTORY: Alcohol abuse, fall CT scan of brain was done without contrast. Sinuses are clear. A skull fracture is not identified. Ma stoids are normally aerated. There is no intracranial hemorrhage or subdural hematoma. There is no ma ss or shift of the midline. Ventricles are normal in size. An acute CVA is not identified. IMPRESSION: 1. No intracranial hemorrhage or acute finding noted. PQRS Compliance Statement: One or more of the following individualized dose reduction techniques were utilized for this examinat ion: 1. Automated exposure control 2. Adjustment of the mA and/or kV according to patient size 3. Use of iterative reconstruction technique Electronically signed by: Mina Rodriguez MD (06/09/2020 7:50 AM) [id number]
[2020-06-09 08:00] LABS: ANION GAP 8 (6-14); BLOOD UREA NITROGEN 16 mg/dL (7-20); BUN/CREATININE RATIO 20 (6-20); CALCIUM 7.9 mg/dL (8.5-10.1); CARBON DIOXIDE 30 mmol/L (21-32); CHLORIDE 105 mmol/L (98-107); CREATININE 0.8 mg/dL (0.6-1.0); GFR 76.6; GLUCOSE 95 mg/dL (70-99); POTASSIUM 4.3 mmol/L (3.5-5.1); SODIUM 143 mmol/L (136-145)
[2020-06-09 08:03] LABS: ALBUMIN 3.3 g/dL (3.4-5.0); ALBUMIN/GLOBULIN RATIO 1.1 (1.0-1.7); ALK PHOS 89 U/L (46-116); ALT (SGPT) 23 U/L (14-59); AST (SGOT) 21 U/L (15-37); TOTAL PROTEIN 6.4 g/dL (6.4-8.2)
[2020-06-09 08:06] LABS: ACETAMIN < 2.0 mcg/mL (10-30); ETHANOL 332 mg/dL (0-10); SALIC < 2.8 mg/dL (2.8-20.0); TOTAL BILIRUBIN < 0.1 mg/dL (0.2-1.0)
[2020-06-09] MEDS ORDERED: ACETAMINOPHEN 325 MG TABLET PO ONE (08:30)
[2020-06-09 09:40] VITALS: BP 124/81
[2020-06-09] MEDS ORDERED: CHLO25CA9 PO (14:35)
== END 2020-06-09 10:00 | disposition home or self-care (01) ==
LOC: ER 07:02
DX: F10.121 Alcohol abuse with intoxication delirium (principal); F41.9 Anxiety disorder, unspecified; Z88.1 Allergy status to other antibiotic agents; Y90.8 Blood alcohol level of 240 mg/100 ml or more; W18.39XA Other fall on same level, initial encounter; Y93.89 Activity, other specified; Y92.89 Other specified places as the place of occurrence of the external cause; Y99.8 Other external cause status
CPT/HCPCS: 36415; 70450; 80053; 80329; 84484; 93005; 96360; 96361; 99285; G0480; J7030

== ENCOUNTER 2020-06-09 11:23 | Emergency (ER) | payer OTHER ==
[~2020-06-09] VITALS: Ht 157.5 cm; Wt 57.2 kg
[~2020-06-09 11:23] MED LIST changes: +SERT-268 PO; -SERT50TA8 PO
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
[2020-06-09 12:24] LABS: ANION GAP 10 (6-14); BLOOD UREA NITROGEN 16 mg/dL (7-20); BUN/CREATININE RATIO 27 (6-20); CALCIUM 7.1 mg/dL (8.5-10.1); CARBON DIOXIDE 25 mmol/L (21-32); CHLORIDE 110 mmol/L (98-107); CREATININE 0.6 mg/dL (0.6-1.0); GFR 106.7; GLUCOSE 82 mg/dL (70-99); SODIUM 145 mmol/L (136-145)
[2020-06-09 12:28] LABS: ALBUMIN 2.9 g/dL (3.4-5.0); ALK PHOS 89 U/L (46-116); ALT (SGPT) 21 U/L (14-59); AST (SGOT) 18 U/L (15-37); TOTAL PROTEIN 5.8 g/dL (6.4-8.2)
[2020-06-09 12:30] LABS: TOTAL BILIRUBIN < 0.1 mg/dL (0.2-1.0)
[2020-06-09 12:32] LABS: ACETAMIN 5.8 mcg/mL (10-30); ETHANOL 343 mg/dL (0-10); SALIC < 2.8 mg/dL (2.8-20.0)
[2020-06-09 12:34] LABS: BARBITURATES NEG (NEG); BENZODIAZEPINES POS (NEG); CANNABINOIDS NEG (NEG); COCAINE NEG (NEG); METHADONE NEG (NEG); OPIATES NEG (NEG); PHENCYCLIDINE NEG (NEG)
[2020-06-09 12:35] LABS: AMPHETAMINE/METHAMPHETAMINE NEG (NEG)
[2020-06-09 12:56] LABS: BACTERIA,URINE 0 /HPF (0-FEW); BILIRUBIN,URINE NEG (NEG); CLARITY,URINE CLEAR; COLOR,URINE YELLOW; GLUCOSE,URINE NEG (NEG); NITRITE,URINE NEG (NEG); RBC,URINE 0 /HPF (0-2); SQUAMOUS EPITHELIAL CELL,UR OCC /LPF; UROBILINOGEN,URINE 0.2 mg/dL (0.2 mg/dL); WBC,URINE 0 /HPF (0-4)
[2020-06-09] MEDS ORDERED: CHLO25CA9 PO (14:35)
[2020-06-09] MEDS ORDERED: LORazepam 1 MG TABLET PO ONE ×2 (14:45→17:30)
[2020-06-09 15:35] VITALS: BP 122/75
[2020-06-09] MEDS ORDERED: ACETAMINOPHEN 325 MG TABLET PO ONE (15:45)
[2020-06-09] MEDS ORDERED: IBUPROFEN 600 MG TABLET. PO ONE (18:30)
== END 2020-06-09 20:19 ==
LOC: ER 11:23
DX: F10.229 Alcohol dependence with intoxication, unspecified (principal); Z20.822 Contact with and (suspected) exposure to COVID-19; R45.851 Suicidal ideations; F32.9 Major depressive disorder, single episode, unspecified; F41.9 Anxiety disorder, unspecified; Z98.890 Other specified postprocedural states; Z88.1 Allergy status to other antibiotic agents; Z88.8 Allergy status to other drugs, medicaments and biological substances
CPT/HCPCS: 36415; 80053; 80307; 80329; 81001; 81025; 87426; 99285; C9803; G0480; U0003

== ENCOUNTER 2020-08-15 22:34 | Emergency (ER) | payer OTHER ==
[~2020-08-15] VITALS: Ht 157.5 cm; Wt 57.2 kg
[~2020-08-15 22:34] MED LIST changes: +CHLO25CA9 PO
--- NOTE | 2020-08-15 22:53 | PHYS DOC ---
Past History Past Medical History: Alcoholism, Anxiety, Depression, Seizure Additional Past Medical Histor: ETOH ABUSE Past Surgical History: Other Additional Past Surgical Histo: BREAST IMPLANTS Alcohol Use: Heavy Drug Use: None General Adult EDM: Chief Complaint: Etoh HPI: HPI: ".. I am feeling really bad.. may like I am going to get alcohol withdrawal.. I am a alcoholic.. no suicide thoughts..."...."..I worried. I will go into withdrawal...I ve been drinking again...one or two pints again.." " I would like to try to quit drinking again" Patient is a 49 year old female who presents with above hx and complaints of alcohol abuse. Patient states she is return to intake of alcohol approximately 2 pints per day. Patient requesting consideration for alcohol abuse program and possible a Librium taper. Patient last admitted here for alcohol abuse on 06/06/2020. At that time her alcohol was 332, evaluation before that on her alcohol was 404, on 05/31 the alcohol level was 434. Patient has long history of alcohol abuse but has also had periods of sobriety. Patient denies any suicidal ideation at this time. Patient denies any history of alcohol withdrawal seizures in the past. Patient has followed with [facility] in the past. Review of Systems: Review of Systems: Constitutional: Denies fever or chills Eyes: Denies change in visual acuity HENT: Denies nasal congestion or sore throat Respiratory: Denies cough or shortness of breath Cardiovascular: Denies chest pain or edema GI: Denies abdominal pain, nausea, vomiting, bloody stools or diarrhea : Denies dysuria Musculoskeletal: Denies back pain or joint pain Integument: Denies rash Neurologic: Denies headache, focal weakness or sensory changes Endocrine: Denies polyuria or polydipsia Lymphatic: Denies swollen glands Psychiatric: Complains of depression and anxiety. Complains of alcohol abuse. Family History: Family History: Noncontributory to presentation.. Current Medications: Current Meds: See nursing for home meds Allergies: Allergies: Allergies Coded Allergies Type Severity Reaction Last Updated Verified amoxicillin Allergy Intermediate rash 06/09/20 Yes ampicillin Allergy Intermediate rash 06/09/20 Yes ciprofloxacin Allergy Intermediate rash 06/09/20 Yes clavulanic acid Allergy Intermediate rash 06/09/20 Yes Physical Exam: PE: Constitutional: Moderate acute distress, appears to be intoxicated with alcohol.. [] HENT: Normocephalic, atraumatic, bilateral external ears normal, oropharynx moist, no oral exudates, nose normal. [] Eyes: PERRLA, EOMI, conjunctiva normal, no discharge. [] Neck: Normal range of motion, no tenderness, supple, no stridor. [] Cardiovascular:Heart rate regular rhythm, no murmur [] Lungs & Thorax: Bilateral breath sounds equal apex with few scattered wheezes on auscultation [] Abdomen: Bowel sounds normal, soft, no tenderness, no masses, no pulsatile masses. [] Skin: Warm, dry, no erythema, no rash. [] Back: No tenderness, no CVA tenderness. [] Extremities: No tenderness, no cyanosis, no clubbing, ROM intact, no edema. [] Neurologic: Alert and oriented X 3, moves all extremities on request. Does have distal sensory, no focal deficits noted. [] Slightly dys coordinated. Pt. ambulatory without problems Psychologic: Affect anxious, judgement normal, mood depressed but denies suicidal ideation. EKG: EKG: My interpretation EKG shows a sinus rhythm at 72 bpm. No significant morphology noted. [] Radiology/Procedures: Radiology/Procedures: [] Heart Score: C/O Chest Pain: N/A HEART Score for Chest Pain: HEART Score for Chest Pain Response (Comments) Value History Slighlty/Non-Suspicious 0 ECG Normal 0 Age >45 - < 65 1 Risk Factors 1 or 2 Risk Factors 1 Troponin < Normal Limit 0 Total 2 Risk Factors: Risk Factors: DM, Current or recent (<one month) smoker, HTN, HLP, family history of CAD, obesity. Risk Scores: Score 0 - 3: 2.5% MACE over next 6 weeks - Discharge Home Score 4 - 6: 20.3% MACE over next 6 weeks - Admit for Clinical Observation Score 7 - 10: 72.7% MACE over next 6 weeks - Early Invasive Strategies Course & Med Decision Making: Course & Med Decision Making Pertinent Labs and Imaging studies reviewed. (See chart for details) See ADONAY mayer. Pt. discharged to [facility] with Librium Rx. Currently unable to print prescription. Patient will be started on Librium taper 100 mg p.o. 4 times a day x3 days then 50 mg by mouth 4 times a day for 3 days, then 25 mg by mouth 4 times a day for 3 days. Then 25 mg twice a day x3 days. Just before transfer to [facility],, pt. declded she did not want to go. Pt. requested discharge home. 0100hrs. Patient discharged to the custody of her mother. Impression: 1. Alcohol dependency/abuse= 293 tonight 2. Mild leukocytosis 14.9 3. Mild dehydration with elevated sodium 148 [] Dragon Disclaimer: Dragon Disclaimer: This electronic medical record was generated, in whole or in part, using a voice recognition dictation system. Departure Departure: Referrals: PCP,NO (PCP) Karrie Disclaimer This chart was dictated in whole or in part using Voice Recognition software in a busy, high-work load, and often noisy Emergency Department environment. It may contain unintended and wholly unrecognized errors or omissions. SHELTON VENEGAS MD Aug 15, 2020 22:53
[2020-08-16 00:08] LABS: BASO # 0.1 x10^3/uL (0.0-0.2); BASO % 0 % (0-3); EOS % 0 % (0-3); HEMATOCRIT 42.5 % (36.0-47.0); HEMOGLOBIN 13.8 g/dL (12.0-15.5); LYMPH # 2.2 x10^3/uL (1.0-4.8); LYMPH % 15 % (24-48); MEAN CORPUSCULAR HEMOGLOBIN 30 pg (25-35); MEAN CORPUSCULAR HGB CONC 33 g/dL (31-37); MEAN CORPUSCULAR VOLUME 92 fL (79-100); MONO # 0.3 x10^3/uL (0.0-1.1); MONO % 2 % (0-9); NEUT # 12.3 x10^3uL (1.8-7.7); NEUT % 83 % (31-73); PLATELET COUNT 397 x10^3/uL (140-400); RED BLOOD COUNT 4.63 x10^6/uL (3.50-5.40); RED CELL DISTRIBUTION WIDTH 14.5 % (11.5-14.5); WHITE BLOOD COUNT 14.9 x10^3/uL (4.0-11.0)
[2020-08-16 00:19] LABS: CALCIUM 8.3 mg/dL (8.5-10.1); GFR 59.2; POTASSIUM 3.7 mmol/L (3.5-5.1)
[2020-08-16 01:10] VITALS: BP 122/68
--- NOTE | 2020-08-16 03:16 | EKG ---
[facility] [address] [place] [address] Test Date: 2020-08-15 Test Time: 23:08:40 Pat Name: VERNA CHILD Department: Room: Gender: F Clinical Specialist Medical Device: ALLA : 1970 Requested By: SHELTON VENEGAS Order Number: [id number] Reading MD: Measurements Intervals [place] Rate: 72 P: 50 CT: 132 QRS: 35 QRSD: 88 T: 56 QT: 404 QTc: 444 Interpretive Statements SINUS RHYTHM NORMAL ECG RI6.02 No previous ECG available for comparison
== END 2020-08-16 01:10 | disposition home or self-care (01) ==
LOC: ER 22:34
DX: F10.20 Alcohol dependence, uncomplicated (principal); D72.829 Elevated white blood cell count, unspecified; E86.0 Dehydration; E87.0 Hyperosmolality and hypernatremia; F41.9 Anxiety disorder, unspecified; F32.9 Major depressive disorder, single episode, unspecified; Z88.1 Allergy status to other antibiotic agents; Y90.8 Blood alcohol level of 240 mg/100 ml or more
CPT/HCPCS: 36415; 80048; 82140; 82550; 83735; 84484; 85025; 93005; 99284; G0480

== ENCOUNTER 2021-05-03 13:37 | Emergency (ER) | payer OTHER ==
[~2021-05-03] VITALS: Ht 157.5 cm; Wt 57.2 kg
[2021-05-03 13:45] VITALS: BP 129/82
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
== END 2021-05-03 14:43 | disposition home or self-care (01) ==
LOC: ER 13:37
DX: F10.229 Alcohol dependence with intoxication, unspecified (principal); F41.9 Anxiety disorder, unspecified; F32.9 Major depressive disorder, single episode, unspecified; Z88.1 Allergy status to other antibiotic agents; Y90.9 Presence of alcohol in blood, level not specified
CPT/HCPCS: 99283

== ENCOUNTER 2021-07-17 21:35 | Emergency (ER) | payer BC, OTHER ==
[~2021-07-17] VITALS: Ht 160 cm; Wt 52.0 kg
[~2021-07-17 21:35] MED LIST changes: -DISU250T PO; +DISU250T12 PO
[2021-07-17 21:40] VITALS: BP 103/55
[2021-07-17] MEDS ORDERED: IV RINGERS SOLUTION,LACTATED 1,000 ML IV SCH (21:45)
[2021-07-17] MEDS ORDERED: MVI, ADULT NO.4 WITH VIT K 10 ML, FOLIC ACID INJ 1 MG, THIAMINE INJ 100 MG in IV RINGER... IV ONE (22:00)
--- NOTE | 2021-07-17 22:01 | PHYS DOC ---
Past History Past Medical History: Alcoholism, Anxiety, Depression, Seizure Additional Past Medical Histor: ETOH ABUSE, chroncin back pain Past Surgical History: Other Additional Past Surgical Histo: BREAST IMPLANTS Alcohol Use: Heavy Drug Use: None General Adult EDM: Chief Complaint: ALCOHOL INTOXICATION HPI: HPI: ".,. Drink too much.. when I stop ... I get sick...can I have some ativan now.. " Patient is a 50 year old female who presents with above hx and complaints of alcohol abuse. Pt. reportedly left re-hab this morning and has drank 2 pints of volka. Pt. has had multiple eval. and admits for her alcohol abuse. Had 7 visits so far this year. Patient denies any trauma. No recent travel. No specific ill contacts. No history immunosuppression. No fever or chills. Review of Systems: Review of Systems: Constitutional: Denies fever or chills Eyes: Denies change in visual acuity HENT: Denies nasal congestion or sore throat Respiratory: Denies cough or shortness of breath Cardiovascular: Denies chest pain or edema GI: Denies abdominal pain, nausea, vomiting, bloody stools or diarrhea : Denies dysuria Musculoskeletal: Denies back pain or joint pain Integument: Denies rash Neurologic: Denies headache, focal weakness or sensory changes Endocrine: Denies polyuria or polydipsia Lymphatic: Denies swollen glands Psychiatric: Complains of alcohol abuse Family History: Family History: Noncontributory presentation Current Medications: Current Meds: Current Medications Medications (Trade) Dose Ordered Sig/Jose Start Time Stop Time Status Last Admin Dose Admin Lactated Ringer's 1,000 ml @ 1,000 mls/hr Q1H 07/17/21 21:45 07/17/21 22:44 Multivitamins/ Minerals 10 ml/ Folic Acid 1 mg/ Thiamine HCl 100 mg/Lactated Ringer's 1,011.3 ml @ 1,011.3 mls/hr 1X ONCE 07/17/21 22:00 07/17/21 22:59 Allergies: Allergies: Allergies Coded Allergies Type Severity Reaction Last Updated Verified amoxicillin Allergy Intermediate rash 06/09/20 Yes ampicillin Allergy Intermediate rash 06/09/20 Yes ciprofloxacin Allergy Intermediate rash 06/09/20 Yes clavulanic acid Allergy Intermediate rash 06/09/20 Yes Physical Exam: PE: Constitutional: , no acute distress, intoxicated appearance. [] HENT: Normocephalic, atraumatic, bilateral external ears normal, oropharynx moist, no oral exudates, nose normal. [] Eyes: PERRLA, EOMI, conjunctiva injected,, no discharge. [] Neck: Normal range of motion, no tenderness, supple, no stridor. [] Cardiovascular:Heart rate regular rhythm, no murmur [] Lungs & Thorax: Bilateral breath sounds to apex with scattered wheezes on auscultation [] Abdomen: Bowel sounds decreased, soft, no tenderness, no masses, no pulsatile masses. [] Skin: Warm, dry, no erythema, no rash. [] Back: No tenderness, no CVA tenderness. [] Extremities: No tenderness, no cyanosis, no clubbing, ROM intact, no edema. [] Neurologic: Alert and oriented X 3, moves all extremities on request, does have distal sensory, no focal deficits noted. Mild discoordination Psychologic: Affect normal, judgement normal, mood normal. [] EKG: EKG: My interpretation EKG shows a sinus rhythm at 97 bpm. No findings acute STEMI. Time of EKG is 2150 hrs. My interpretation second EKG shows sinus rhythm 89 bpm. 2327 hrs. no acute interval change [] Radiology/Procedures: Radiology/Procedures: [] Heart Score: C/O Chest Pain: No Risk Factors: Risk Factors: DM, Current or recent (<one month) smoker, HTN, HLP, family h istory of CAD, obesity. Risk Scores: Score 0 - 3: 2.5% MACE over next 6 weeks - Discharge Home Score 4 - 6: 20.3% MACE over next 6 weeks - Admit for Clinical Observation Score 7 - 10: 72.7% MACE over next 6 weeks - Early Invasive Strategies Course & Med Decision Making: Course & Med Decision Making Pertinent Labs and Imaging studies reviewed. (See chart for details) Patient encouraged to follow-up with [facility] for alcohol withdrawal. Patient push fluids. Patient take Bactrim DS twice a day. Patient return if any concerns. Impression: 1. Alcohol abuse 2. Urinary tract infection [] Dragon Disclaimer: Dragon Disclaimer: This electronic medical record was generated, in whole or in part, using a voice recognition dictation system. Departure Departure: Referrals: PCP,NO (PCP) Karrie Disclaimer This chart was dictated in whole or in part using Voice Recognition software in a busy, high-work load, and often noisy Emergency Department environment. It may contain unintended and wholly unrecognized errors or omissions. SHELTON VENEGAS MD Jul 17, 2021 22:01
[2021-07-17 22:25] LABS: ANION GAP 7 (6-14); BLOOD UREA NITROGEN 18 mg/dL (7-20); CALCIUM 8.3 mg/dL (8.5-10.1); CARBON DIOXIDE 30 mmol/L (21-32); CHLORIDE 106 mmol/L (98-107); CREATININE 0.7 mg/dL (0.6-1.0); GFR 88.9; GLUCOSE 87 mg/dL (70-99); POTASSIUM 4.2 mmol/L (3.5-5.1); SODIUM 143 mmol/L (136-145)
[2021-07-17 22:31] LABS: ALBUMIN 3.2 g/dL (3.4-5.0); ALK PHOS 77 U/L (46-116); ALT (SGPT) 28 U/L (14-59); AST (SGOT) 20 U/L (15-37); LIPASE 145 U/L (73-393); TOTAL BILIRUBIN 0.1 mg/dL (0.2-1.0)
[2021-07-17 22:43] LABS: DIRECT BILIRUBIN < 0.1 mg/dL (0.0-0.2)
[2021-07-17 22:55] LABS: BASO % 0 % (0-3); EOS # 0.1 x10^3/uL (0.0-0.7); EOS % 1 % (0-3); HEMATOCRIT 39.2 % (36.0-47.0); HEMOGLOBIN 12.7 g/dL (12.0-15.5); LYMPH # 2.9 x10^3/uL (1.0-4.8); LYMPH % 31 % (24-48); MEAN CORPUSCULAR HEMOGLOBIN 30 pg (25-35); MEAN CORPUSCULAR HGB CONC 33 g/dL (31-37); MEAN CORPUSCULAR VOLUME 93 fL (79-100); MONO # 0.6 x10^3/uL (0.0-1.1); MONO % 6 % (0-9); NEUT # 5.9 x10^3uL (1.8-7.7); NEUT % 62 % (31-73); PLATELET COUNT 396 x10^3/uL (140-400); RED BLOOD COUNT 4.21 x10^6/uL (3.50-5.40); RED CELL DISTRIBUTION WIDTH 17.4 % (11.5-14.5); WHITE BLOOD COUNT 9.5 x10^3/uL (4.0-11.0)
[2021-07-17 22:59] LABS: AMPHETAMINE/METHAMPHETAMINE NEG (NEG); BARBITURATES NEG (NEG); BENZODIAZEPINES POS (NEG); CANNABINOIDS NEG (NEG); COCAINE NEG (NEG); METHADONE NEG (NEG); OPIATES NEG (NEG); PHENCYCLIDINE NEG (NEG)
[2021-07-17 23:05] LABS: INFLUENZA A PATIENT NEGATIVE (NEGATIVE); INFLUENZA B PATIENT NEGATIVE (NEGATIVE)
[2021-07-17 23:18] LABS: BACTERIA,URINE FEW /HPF (0-FEW); CLARITY,URINE CLEAR; COLOR,URINE YELLOW; GLUCOSE,URINE NEG (NEG); NITRITE,URINE NEG (NEG); SQUAMOUS EPITHELIAL CELL,UR FEW /LPF; UROBILINOGEN,URINE 0.2 mg/dL (0.2 mg/dL)
[2021-07-17] MEDS ORDERED: SMZ/TMP 800/160MG TABLET. PO ONE (23:45)
[2021-07-18] MEDS ORDERED: ACETAMINOPHEN 500 MG TABLET PO ONE ×2 (00:10→01:00)
--- NOTE | 2021-07-18 01:13 | EKG ---
[address] [address] Test Date: 2021-07-17 Test Time: 21:50:51 Pat Name: VERNA CHILD Department: Room: Gender: F Claims Examiner: ALLA : 1970 Requested By: SHELTON VENEGAS Order Number: [id number] Reading MD: Chris Edwards Measurements Intervals [place] Rate: 97 P: 46 FL: 128 QRS: 38 QRSD: 84 T: 56 QT: 334 QTc: 428 Interpretive Statements SINUS RHYTHM NORMAL ECG RI6.02 Compared to ECG 08/15/2020 23:08:40 No significant changes Electronically Signed On 07-18-2021 19:27:34 SUPERVISOR [employer]AL [employer]ARMENT by Chris Edwards
--- NOTE | 2021-07-18 02:53 | EKG ---
[address] [address] Test Date: 2021-07-17 Test Time: 23:27:21 Pat Name: VERNA CHILD Department: Room: Gender: F Urban And Regional Planner: ALLA : 1970 Requested By: SHELTON VENEGAS Order Number: [id number] Reading MD: Chris Edwards Measurements Intervals [place] Rate: 89 P: 84 AR: 128 QRS: 48 QRSD: 78 T: 54 QT: 346 QTc: 427 Interpretive Statements SINUS RHYTHM NORMAL ECG RI6.02 Compared to ECG 07/17/2021 21:50:51 No significant changes Electronically Signed On 07-18-2021 19:26:24 MANAGING DIRECTOR by Chris Edwards
== END 2021-07-18 00:22 | disposition home or self-care (01) ==
LOC: ER 21:35
DX: F10.20 Alcohol dependence, uncomplicated (principal); N39.0 Urinary tract infection, site not specified; F41.9 Anxiety disorder, unspecified; F32.9 Major depressive disorder, single episode, unspecified; Z20.822 Contact with and (suspected) exposure to COVID-19; Z88.1 Allergy status to other antibiotic agents; Y90.8 Blood alcohol level of 240 mg/100 ml or more
CPT/HCPCS: 36415; 80048; 80076; 80307; 81001; 82550; 83690; 85025; 87086; 87428; 93005; 96365; 96366; 99284; G0480; J7120

== ENCOUNTER 2021-07-18 09:49 | Emergency (ER) | payer BC, OTHER ==
[~2021-07-18] VITALS: Ht 160 cm; Wt 52.0 kg
--- NOTE | 2021-07-18 10:09 | PHYS DOC ---
Past History Past Medical History: Alcoholism, Anxiety, Depression, Seizure Additional Past Medical Histor: ETOH ABUSE, chroncin back pain Past Surgical History: No Surgical History Additional Past Surgical Histo: BREAST IMPLANTS Alcohol Use: Heavy Drug Use: None General Adult EDM: Chief Complaint: OVERDOSE HPI: HPI: 50-year-old female presents via EMS with acetone overdose. The patient is a longstanding alcoholic. She was in a treatment facility until Saturday. She has been home a couple of days and decided she was desperate for alcohol so she drank about 100 mL of nail kyrgyz remover thinking it had alcohol in it. It is not it is on her present as time. Patient is emotionally upset. She does not have any other specific symptoms. She drank this just prior to arrival. She denies any other ingestions. Review of Systems: Review of Systems: Constitutional: Denies fever or chills Eyes: Denies change in visual acuity HENT: Denies nasal congestion or sore throat Respiratory: Denies cough or shortness of breath Cardiovascular: Denies chest pain or edema GI: Denies abdominal pain, nausea, vomiting, bloody stools or diarrhea : Denies dysuria Musculoskeletal: Denies back pain or joint pain Integument: Denies rash Neurologic: Denies headache, focal weakness or sensory changes Endocrine: Denies polyuria or polydipsia Lymphatic: Denies swollen glands Psychiatric: anxiety Current Medications: Current Meds: Current Medications Medications (Trade) Dose Ordered Sig/Jose Start Time Stop Time Status Last Admin Dose Admin Sodium Chloride 1,000 ml @ 1,000 mls/hr 1X ONCE 07/18/21 10:15 07/18/21 11:14 UNV Allergies: Allergies: Allergies Coded Allergies Type Severity Reaction Last Updated Verified amoxicillin Allergy Intermediate rash 06/09/20 Yes ampicillin Allergy Intermediate rash 06/09/20 Yes ciprofloxacin Allergy Intermediate rash 06/09/20 Yes clavulanic acid Allergy Intermediate rash 06/09/20 Yes Physical Exam: PE: Constitutional: Well developed, well nourished, no acute distress, non-toxic appearance. [] HENT: Normocephalic, atraumatic, bilateral external ears normal, oropharynx moist, no oral exudates, nose normal. [] Eyes: PERRLA, EOMI, conjunctiva normal, no discharge. [] Neck: Normal range of motion, no tenderness, supple, no stridor. [] Cardiovascular: Heart rate regular rhythm, no murmur [] Lungs & Thorax: Bilateral breath sounds clear to auscultation [] Abdomen: Bowel sounds normal, soft, no tenderness, no masses, no pulsatile masses. [] Skin: Warm, dry, no erythema, no rash. [] Back: No tenderness, no CVA tenderness. [] Extremities: No tenderness, no cyanosis, no clubbing, ROM intact, no edema. [] Neurologic: Alert and oriented X 3, normal motor function, normal sensory function, no focal deficits noted. [] Psychologic: Affect tearful, judgement normal, mood anxious. [] EKG: EKG: [] Radiology/Procedures: Radiology/Procedures: [] Heart Score: C/O Chest Pain: N/A Risk Factors: Risk Factors: DM, Current or recent (<one month) smoker, HTN, HLP, family history of CAD, obesity. Risk Scores: Score 0 - 3: 2.5% MACE over next 6 weeks - Discharge Home Score 4 - 6: 20.3% MACE over next 6 weeks - Admit for Clinical Observation Score 7 - 10: 72.7% MACE over next 6 weeks - Early Invasive Strategies Course & Med Decision Making: Course & Med Decision Making Pertinent Labs and Imaging studies reviewed. (See chart for details) Patient's acetone is positive. She has an elevated creatinine of 2.1. I have ordered 2 L of normal saline. For her agitation given her 2 different doses of 2 mg of Ativan IV. She is very anxious and sorrowful about what she drank. She has a mildly elevated white count. Given that she could decompensate and need dialysis and other supportive care, I believe she should be transferred to a higher center. I spoke with Dr. Dougherty and he has accepted the patient for transfer and admission to . She will go by ambulance. [] Dragon Disclaimer: Dragon Disclaimer: This electronic medical record was generated, in whole or in part, using a voice recognition dictation system. Departure Departure: Impression: Primary Impression: Acetone poisoning Disposition: SHORT TERM HOSPITAL Admitting Physician: Terese Dougherty Condition: GUARDED Referrals: PCP,DARIUSZ (PCP) ALANNA CARDENAS DO Jul 18, 2021 10:09
[2021-07-18] MEDS ORDERED: IV NORMAL SALINE 1,000ML 1,000 ML IV ONE ×2 (10:15→13:15)
[2021-07-18 10:26] LABS: BASO # 0.1 x10^3/uL (0.0-0.2); BASO % 0 % (0-3); EOS % 0 % (0-3); HEMATOCRIT 35.7 % (36.0-47.0); HEMOGLOBIN 11.4 g/dL (12.0-15.5); LYMPH # 3.4 x10^3/uL (1.0-4.8); LYMPH % 28 % (24-48); MEAN CORPUSCULAR HEMOGLOBIN 29 pg (25-35); MEAN CORPUSCULAR HGB CONC 32 g/dL (31-37); MEAN CORPUSCULAR VOLUME 92 fL (79-100); MONO # 0.8 x10^3/uL (0.0-1.1); MONO % 6 % (0-9); NEUT # 7.8 x10^3uL (1.8-7.7); NEUT % 65 % (31-73); PLATELET COUNT 400 x10^3/uL (140-400); RED BLOOD COUNT 3.89 x10^6/uL (3.50-5.40); RED CELL DISTRIBUTION WIDTH 16.8 % (11.5-14.5); WHITE BLOOD COUNT 12.2 x10^3/uL (4.0-11.0)
[2021-07-18 10:39] LABS: CALCIUM 8.6 mg/dL (8.5-10.1); CREATININE 2.1 mg/dL (0.6-1.0)
[2021-07-18 10:45] LABS: ALBUMIN 3.1 g/dL (3.4-5.0); ALBUMIN/GLOBULIN RATIO 0.9 (1.0-1.7); TOTAL BILIRUBIN 0.1 mg/dL (0.2-1.0); TOTAL PROTEIN 6.6 g/dL (6.4-8.2)
[2021-07-18 10:51] LABS: ACETAMIN 10.8 mcg/mL (10-30); SALIC 7.1 mg/dL (2.8-20.0)
--- NOTE | 2021-07-18 11:53 | EKG ---
[address] [address] Test Date: 2021-07-18 Test Time: 11:27:42 Pat Name: VERNA CHILD Department: Room: Gender: F Rn Heart: JESSIKA : 1970 Requested By: ALANNA CARDENAS Order Number: [id number] Reading MD: Chris Edwards Measurements Intervals [place] Rate: 101 P: 49 OK: 128 QRS: 39 QRSD: 82 T: 58 QT: 338 QTc: 439 Interpretive Statements SINUS TACHYCARDIA Electronically Signed On 07-18-2021 19:22:08 RED CROSS EXECUTIVE DIRECTOR by Chris Edwards
[2021-07-18 13:53] LABS: ACETAMIN 6.4 mcg/mL (10-30); SALIC 2.9 mg/dL (2.8-20.0)
[2021-07-18 13:55] VITALS: BP 98/64
[2021-07-18 13:55] LABS: INFLUENZA A PATIENT NEGATIVE (NEGATIVE); INFLUENZA B PATIENT NEGATIVE (NEGATIVE)
[2021-07-18 15:27] LABS: BARBITURATES NEG (NEG); BENZODIAZEPINES POS (NEG); CANNABINOIDS NEG (NEG); COCAINE NEG (NEG); METHADONE NEG (NEG); OPIATES NEG (NEG); PHENCYCLIDINE NEG (NEG)
[2021-07-18 15:29] LABS: CLARITY,URINE HAZY; COLOR,URINE YELLOW; GLUCOSE,URINE NEG (NEG)
[2021-07-18 15:30] LABS: BACTERIA,URINE 0 /HPF (0-FEW); NITRITE,URINE NEG (NEG); SQUAMOUS EPITHELIAL CELL,UR MOD /LPF; UROBILINOGEN,URINE 0.2 mg/dL (0.2 mg/dL); WBC,URINE 20-40 /HPF (0-4)
[2021-07-18 15:38] LABS: AMPHETAMINE/METHAMPHETAMINE NEG (NEG)
== END 2021-07-18 14:45 | disposition short-term general hospital (02) ==
LOC: ER 09:49
DX: T52.4X1A Toxic effect of ketones, accidental (unintentional), initial encounter (principal); F10.20 Alcohol dependence, uncomplicated; G89.29 Other chronic pain; Z20.822 Contact with and (suspected) exposure to COVID-19; Z88.1 Allergy status to other antibiotic agents; Y90.0 Blood alcohol level of less than 20 mg/100 ml; Y92.89 Other specified places as the place of occurrence of the external cause
CPT/HCPCS: 36415; 80053; 80307; 80329; 81001; 82010; 85025; 87086; 87428; 93005; 96361; 96374; 96376; 99285; G0480; J2060; J7030

== ENCOUNTER 2021-09-12 11:24 | Emergency (ER) | payer BC, OTHER ==
[~2021-09-12] VITALS: Ht 160 cm; Wt 52.0 kg
[2021-09-12] MEDS ORDERED: MVI, ADULT NO.4 WITH VIT K 10 ML, FOLIC ACID INJ 1 MG, THIAMINE INJ 100 MG in IV NORMAL... IV ONE ×2 (11:30→13:45)
--- NOTE | 2021-09-12 11:38 | PHYS DOC ---
Past History Past Medical History: Alcoholism, Anxiety, Depression, Seizure Additional Past Medical Histor: ETOH ABUSE, chronic back pain Additional Past Surgical Histo: BREAST IMPLANTS Smoking: Non-smoker Alcohol Use: Heavy Drug Use: None General Adult EDM: Chief Complaint: ALCOHOL INTOXICATION HPI: HPI: Pt is a 50 yo F with a hx of alcohol abuse presents via EMS for anxiety. Pt's son is in jeopardy of going back to retirement and this has brought on much anxiety. She reports drinking 1/5 of vodka this morning. She reports mild nausea. Pt zaria smith drinks about a 1/5 of vodka daily. Pt states she has never had a withdrawal seizure. She denies SI/HI. No other complaints at this time. Review of Systems: Review of Systems: Constitutional: Denies fever or chills Eyes: Denies redness or eye pain HENT: Denies nasal congestion or sore throat Respiratory: Denies cough or shortness of breath Cardiovascular: Denies chest pain or palpitations GI: Denies abdominal pain and vomiting, Reports nausea : Denies dysuria or hematuria Musculoskeletal: Denies back pain or joint pain Integument: Denies rash or skin lesions Neurologic: Denies headache, focal weakness or sensory changes Psych: Denies SI, HI; reports anxiety Complete systems were reviewed and found to be within normal limits, except as documented in this note. Current Medications: Current Meds: Current Medications Medications (Trade) Dose Ordered Sig/Jose Start Time Stop Time Status Last Admin Dose Admin Multivitamins/ Minerals 10 ml/ Folic Acid 1 mg/ Thiamine HCl 100 mg/Sodium Chloride 1,011.3 ml @ 1,000.187 mls/hr 1X ONCE 09/12/21 11:30 09/12/21 12:30 Allergies: Allergies: Allergies Coded Allergies Type Severity Reaction Last Updated Verified amoxicillin Allergy Intermediate rash 06/09/20 Yes ampicillin Allergy Intermediate rash 06/09/20 Yes ciprofloxacin Allergy Intermediate rash 06/09/20 Yes clavulanic acid Allergy Intermediate rash 06/09/20 Yes Physical Exam: PE: Constitutional: Well developed, well nourished, no acute distress, non-toxic appearance HENT: Normocephalic, atraumatic Eyes: PERRL, EOMI, conjunctiva normal, no discharge Neck: Normal range of motion, no tenderness, supple Lungs & Thorax: No respiratory distress, equal chest rise and fall Abdomen: Soft, no tenderness Skin: Warm, dry, no erythema, no rash Back: No tenderness, no CVA tenderness Extremities: No tenderness, ROM intact, no edema Neurologic: Alert and oriented X 3, normal motor function, normal sensory function, no focal deficits noted Psychologic: Tearful, judgment normal EKG: EKG: [] Radiology/Procedures: Radiology/Procedures: [] Heart Score: C/O Chest Pain: N/A Course & Med Decision Making: Course & Med Decision Making Pertinent Labs reviewed. (See chart for details) Pt is a 50 yo F with hx of alcohol abuse who presents with anxiety and alcohol intoxication She denies SI/HI Pt given a banana bag. CBC and alcohol level ordered Pt given ativan for anxiety Patient with interval improvement of symptoms. Patient stable for discharge home with outpatient follow-up with PCP/Alcohol rehab. Discussed findings and plan with patient, who acknowledges understanding and agreement. Karrie Disclaimer: Karrie Disclaimer: This electronic medical record was generated, in whole or in part, using a voice recognition dictation system. Departure Departure: Impression: Primary Impression: Anxiety attack Additional Impression: Alcohol abuse Disposition: 01 HOME / SELF CARE / HOMELESS Condition: STABLE Referrals: PCP,NO (PCP) Patient Instructions: Alcohol and Drug Addiction, Finding Treatment, Alcohol, FAQs, Anxiety and Panic Attacks, [id number] Additional Instructions: Please call [facility] at to seek help for your mental health and/or drug/alcohol abuse. MARVEL RODRIGUEZ DO Sep 12, 2021 11:38
[2021-09-12 12:14] LABS: BASO % 0 % (0-3); EOS % 0 % (0-3); HEMATOCRIT 36.9 % (36.0-47.0); HEMOGLOBIN 12.2 g/dL (12.0-15.5); LYMPH # 1.9 x10^3/uL (1.0-4.8); LYMPH % 29 % (24-48); MEAN CORPUSCULAR HEMOGLOBIN 29 pg (25-35); MEAN CORPUSCULAR HGB CONC 33 g/dL (31-37); MEAN CORPUSCULAR VOLUME 89 fL (79-100); MONO # 0.1 x10^3/uL (0.0-1.1); MONO % 2 % (0-9); NEUT # 4.4 x10^3uL (1.8-7.7); NEUT % 68 % (31-73); PLATELET COUNT 297 x10^3/uL (140-400); RED BLOOD COUNT 4.16 x10^6/uL (3.50-5.40); RED CELL DISTRIBUTION WIDTH 16.6 % (11.5-14.5); WHITE BLOOD COUNT 6.4 x10^3/uL (4.0-11.0)
[2021-09-12 12:29] LABS: CALCIUM 8.3 mg/dL (8.5-10.1); CREATININE 0.8 mg/dL (0.6-1.0); GFR 76.2; POTASSIUM 4.1 mmol/L (3.5-5.1)
[2021-09-12 12:35] LABS: ALBUMIN 3.1 g/dL (3.4-5.0); TOTAL BILIRUBIN 0.2 mg/dL (0.2-1.0); TOTAL PROTEIN 6.2 g/dL (6.4-8.2)
[2021-09-12 13:20] LABS: BARBITURATES NEG (NEG); BENZODIAZEPINES NEG (NEG); CANNABINOIDS NEG (NEG); COCAINE NEG (NEG); METHADONE NEG (NEG); OPIATES NEG (NEG); PHENCYCLIDINE NEG (NEG)
[2021-09-12 13:27] LABS: BACTERIA,URINE 0 /HPF (0-FEW); CLARITY,URINE CLEAR; COLOR,URINE YELLOW; GLUCOSE,URINE NEG (NEG); NITRITE,URINE NEG (NEG); RBC,URINE OCC /HPF (0-2); SQUAMOUS EPITHELIAL CELL,UR MOD /LPF; UROBILINOGEN,URINE 0.2 mg/dL (0.2 mg/dL); WBC,URINE 0 /HPF (0-4)
[2021-09-12 13:31] LABS: AMPHETAMINE/METHAMPHETAMINE NEG (NEG)
[2021-09-12] MEDS ORDERED: LORazepam 1 MG TABLET PO ONE (13:45)
[2021-09-12 14:30] VITALS: BP 126/72
== END 2021-09-12 14:35 | disposition home or self-care (01) ==
LOC: ER 11:24
DX: F41.9 Anxiety disorder, unspecified (principal); F10.20 Alcohol dependence, uncomplicated; F32.9 Major depressive disorder, single episode, unspecified; G89.29 Other chronic pain; Z88.1 Allergy status to other antibiotic agents; Y90.8 Blood alcohol level of 240 mg/100 ml or more
CPT/HCPCS: 36415; 80053; 80307; 81001; 83735; 85025; 96365; 96375; 99284; G0480; J2060; J7030